=== PATIENT | female | born 1970 | race Hispanic/Latino ===

== ENCOUNTER 2018-01-22 19:15 | Emergency (ER) | payer SELFPAY ==
[2018-01-22 20:36] LABS: Absolute Monocytes 0.6 K/uL (0.1-1.3); Absolute Neutrophil 8.8 K/uL (1.8-8.0); Eosinophils % 1.2 % (0-4.4); Hematocrit 28.5 % (36.0-45.0); Lymphocytes % 16.9 % (15.3-44.8); MCV 86.2 fL (80-100); MPV 8.5 fL (7.6-11.3); RBC Red Blood Cell Count 3.31 M/uL (3.86-4.86)
--- NOTE | 2018-01-22 20:39 | RAD REPORT ---
EXAM DESCRIPTION: CT - Abdomen Pelvis Wo Contrast - 01/22/2018 8:30 pm CLINICAL HISTORY: Abdominal pain. COMPARISON: 10/14/2016 TECHNIQUE: CT imaging of the abdomen and pelvis was performed without contrast. Solid organ, bowel a nd vascular assessment is limited due to lack of IV and oral contrast. All CT scans are performed using dose optimization technique as appropriate and may include automated exposure control or mA/KV adjustment according to patient size. FINDINGS: A small left pleural effusion is present with a small to moderate right pleural effusion. Subsegmental atelectasis is present in the lung bases, greater on the right. The liver, spleen, pancreas, adrenal glands and kidneys are within normal limits for a limited non-co ntrast examination.Cholecystectomy. No bowel obstruction, free air, free fluid or abscess. Mild anasarca is noted. The appendix is normal . Small fat containing umbilical hernia. The osseous structures are within normal limits. IMPRESSION: Bilateral pleural effusions are noted, larger on the right. Mild anasarca is also seen. No acute intra-abdominal or intrapelvic finding is present. A limited non-contrast examination was performed as detailed.
[2018-01-22] MEDS ORDERED: FAMOTIDINE 20 MG/2 ML VIAL IV ONE (20:45)
[2018-01-22] MEDS ORDERED: MAGNE/ALUM HYDROXD 30 ML UCUP ONE (20:45)
[2018-01-22] MEDS ORDERED: LIDOCAINE VISCOUS 2% SOLN 15 ML UDC ONE (20:45)
[2018-01-22] MEDS ORDERED: ONDANSETRON 4 MG/2 ML VIAL ONE (20:45)
[2018-01-22] MEDS ORDERED: MORPHINE 4 MG/ML SYR ONE (20:45)
[2018-01-22] MEDS ORDERED: NA CHLORIDE 0.9% 500 ML ONE (20:46)
[2018-01-22 20:54] LABS: Albumin 3.1 g/dL (3.2-5.5); Bilirubin Direct 0.1 mg/dL (0-0.2); Bilirubin Total 0.5 mg/dL (0.3-1.2); Protein, Total 6.1 g/dL (6.0-8.3)
[2018-01-22] MEDS ORDERED: PROMETHAZINE 25 MG/ML VIAL ONE (22:57)
[2018-01-22] MEDS ORDERED: MORPHINE 10 MG/ML VIAL ONE (23:10)
--- NOTE | 2018-01-22 23:58 | ER ---
Nurse's Notes [facility] Name: Theresa Mancia Age: 47 yrs Sex: Female : 1970 Arrival Date: 01/22/2018 Time: 19:18 Bed 4 Private MD: Diagnosis: Gastroparesis Presentation: 01/22 19:24 Presenting complaint: Patient states: upper abd pain and vomiting x 2 days. Transition aa1 of care: patient was not received from another setting of care. Onset of symptoms was January 21, 2018. Care prior to arrival: None. 19:24 Method Of Arrival: Wheelchair aa1 19:24 Acuity: MISHEL 3 aa1 Triage Assessment: 19:28 General: Appears in no apparent distress. uncomfortable, Behavior is appropriate for aa1 age, restless. 22:45 GI: Reports upper abdominal pain, nausea, vomiting. ao FULL TIME PARAMEDIC: 01/23 00:25 LMP N/A - ao Historical: - Allergies: 01/22 19:28 No Known Allergies; aa1 - Home Meds: 19:28 Creon 24,000-76,000 -120,000 unit Oral cpDR 1 caps 3 times per day [Active]; Reglan 10 aa1 mg Oral tab 1 tab before meals [Active]; Lasix 40 mg Oral tab 3 tabs 2 times per day [Active]; Vitamin D 5,000 unit Oral daily [Active]; omeprazole 20 mg Oral TbEC 20 mg daily [Active]; atenolol 50 mg Oral tab 1 tab 2 times per day [Active]; amlodipine 5 mg tab 1 tab once daily [Active]; gabapentin 100 mg oral cap 1 caps 3 times per day [Active]; simvastatin 80 mg Oral tab nightly [Active]; carvedilol 6.25 mg Oral tab 1 tab 2 times per day [Active]; Toujeo SoloStar 300 unit/mL (1.5 mL) subcutaneous inpn 40 unit daily [Active]; - PMHx: 19:28 Diabetes - IDDM; Gastroparesis; Hypertension; Renal Disease; Dialysis; aa1 - PSHx: 19:28 Left AKA; Cholecystectomy; aa1 - Immunization history:: Flu vaccine is up to date. - Social history:: Smoking status: Patient/guardian denies using tobacco. - Family history:: pertinent for recent upper respiratory infection symptoms. Screenin:44 Abuse screen: Denies threats or abuse. Denies injuries from another. Nutritional ao screening: No deficits noted. Tuberculosis screening: No symptoms or risk factors identified. Fall Risk None identified. Assessment: 20:00 General: Appears in no apparent distress. uncomfortable, Behavior is anxious, crying. ao Pain: Complains of pain in abdomen Pain currently is 8 out of 10 on a pain scale. Neuro: Level of Consciousness is awake, alert, obeys commands, Oriented to person, place, time, situation, Appropriate for age Moves all extremities. Speech is normal, Facial symmetry appears normal, Pupils are PERRLA. Cardiovascular: Heart tones S1 S2 Capillary refill < 3 seconds Patient's skin is warm and dry. Respiratory: Airway is patent Respiratory effort is even, unlabored, Respiratory pattern is regular, symmetrical, Breath sounds are clear bilaterally. GI: Abdomen is obese, Bowel sounds present X 4 quads. : No signs and/or symptoms were reported regarding the genitourinary system. EENT: No signs and/or symptoms were reported regarding the EENT system. Derm: No signs and/or symptoms reported regarding the dermatologic system. Musculoskeletal: No signs and/or symptoms reported regarding the musculoskeletal system. 21:08 Reassessment: Patient appears in no apparent distress at this time. Patient and/or ao family updated on plan of care and expected duration. Pain level reassessed. Patient is alert, oriented x 3, equal unlabored respirations, skin warm/dry/pink. Waiting on labs results. 22:43 Reassessment: Patient appears in no apparent distress at this time. Patient and/or ao family updated on plan of care and expected duration. Pain level reassessed. Patient is alert, oriented x 3, equal unlabored respirations, skin warm/dry/pink. 23:23 Reassessment: Patient appears in no apparent distress at this time. Patient and/or ao family updated on plan of care and expected duration. Pain level reassessed. Patient is alert, oriented x 3, equal unlabored respirations, skin warm/dry/pink. Unable to get urine from patient as patient was put in bedside commode and was unable to void. Patient states that she produces some urine still, but was unable to urinate. Dr Beckford was notified and said that is Okay and we don't need urine. Vital Signs: 19:28 BP 187 / 91; Pulse 84; Resp 22; Temp 98.4; Pulse Ox 95% ; Weight 92.99 kg; Pain 10/10; aa1 21:08 BP 182 / 76; Pulse 84; Resp 14; Pulse Ox 92% on R/A; Pain 4/10; ao 22:43 BP 187 / 100; Pulse 94; Resp 18; Pulse Ox 95% on 2 lpm NC; ao 23:23 BP 184 / 95; Pulse 85; Resp 16; Pulse Ox 96% on 2 lpm NC; ao 04 00:25 BP 187 / 98; Pulse 82; Resp 16; Pulse Ox 98% on 2 lpm NC; ao 00:25 Patient stated that she has not take her BP medication. Patient was advised to take her ao BP when she get home ED Course: 01/22 19:18 Patient arrived in ED. es 19:24 Triage completed. aa1 19:28 Arm band placed on left wrist. aa1 19:31 Gris Beckford MD is Attending Physician. ma2 19:38 Kevin Aguilera RN is Primary Nurse. ao 20:30 Inserted saline lock: 20 gauge in right antecubital area, using aseptic technique. ao ,using aseptic technique. Guided ultrasound Blood collected. 20:31 CT completed. Patient moved to CT via stretcher. Patient moved back from CT. jg1 20:31 CT Abd/Pelvis - Without Cont In Process Unspecified. EDMS 22:44 Patient has correct armband on for positive identification. Pulse ox on. NIBP on. ao 01/23 00:24 No provider procedures requiring assistance completed. IV discontinued, intact, ao bleeding controlled, No redness/swelling at site. Pressure dressing applied. Administered Medications: 01/22 20:30 Drug: Pepcid 20 mg Route: IVP; Site: right antecubital; ao 22:43 Follow up: Response: No adverse reaction ao 20:35 Drug: morphine 4 mg Route: IVP; Site: right antecubital; ao 22:42 Follow up: Response: No adverse reaction; Pain is unchanged, physician notified ao 20:35 Drug: Zofran 4 mg Route: IVP; Site: right antecubital; ao 22:42 Follow up: Response: No adverse reaction ao 20:40 Drug: GI Cocktail with - (Phenobarbital-Belladonna 10 ml, Maalox Suspension 30 ao ml, Lidocaine Liquid 2 % 20 ml) Route: PO; 22:42 Follow up: Response: No adverse reaction ao 20:45 Drug: NS 0.9% 500 ml Route: IV; Rate: 200 ml/hr; Site: right antecubital; ao 22:41 Drug: Phenergan 25 mg Route: IVP; Site: right antecubital; ao 22:43 Follow up: Response: No adverse reaction ao 22:42 Not Given (Unable to get Dilaudid. DR Informed): Dilaudid 1 mg IVP once ao 23:00 Drug: morphine 4 mg Route: IVP; Site: right antecubital; ao 23:51 Follow up: Response: No adverse reaction; Pain is decreased ao Outcome: 23:58 Discharge ordered by MD. granados 04/08 00:24 Discharged to home via wheelchair. ao Condition: stable Discharge instructions given to patient, chair mender, Instructed on discharge instructions, follow up and referral plans. Demonstrated understanding of instructions, follow-up care, medications, Prescriptions given X 3, Given instructions to son and patient. Patient agree with the POC and to follow up with PCP. 00:27 Patient left the ED. ao Signatures: Dispatcher [employer] Cecille Anglin RN RN aa1 Salyer, Edna es Garcia, Jessica jg1 Ortiz, Alex, RN RN ao Alzahri, Mohammad, MD MD ma2
--- NOTE | 2018-01-22 23:59 | EDPHYS ---
Physician Documentation [facility] Name: Theresa Mancia Age: 47 yrs Sex: Female : 1970 Arrival Date: 01/22/2018 Time: 19:18 Bed 4 Private MD: ED Physician Gris Beckford HPI: 01/22 19:50 This 47 yrs old Female presents to ER via Wheelchair with complaints of ma2 Vomiting, Abdominal Pain. 19:50 The patient presents to the emergency department with nausea, vomiting. Onset: The ma2 symptoms/episode began/occurred gradually, 2 day(s) ago. Possible causes: unknown. Associated signs and symptoms: Pertinent positives: abdominal pain. Severity of symptoms: At their worst the symptoms were severe. The patient has experienced similar episodes in the past. hx of ESRD gastroparesis here with epigastric abd pain and vomiting x 2 days constant had endoscopy many yrs in past unremarkabel . 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/A - ao Historical: - Allergies: 01/22 19:28 No Known Allergies; aa1 - Home Meds: 19:28 Creon 24,000-76,000 -120,000 unit Oral cpDR 1 caps 3 times per day [Active]; Reglan 10 aa1 mg Oral tab 1 tab before meals [Active]; Lasix 40 mg Oral tab 3 tabs 2 times per day [Active]; Vitamin D 5,000 unit Oral daily [Active]; omeprazole 20 mg Oral TbEC 20 mg daily [Active]; atenolol 50 mg Oral tab 1 tab 2 times per day [Active]; amlodipine 5 mg tab 1 tab once daily [Active]; gabapentin 100 mg oral cap 1 caps 3 times per day [Active]; simvastatin 80 mg Oral tab nightly [Active]; carvedilol 6.25 mg Oral tab 1 tab 2 times per day [Active]; Toujeo SoloStar 300 unit/mL (1.5 mL) subcutaneous inpn 40 unit daily [Active]; - PMHx: 19:28 Diabetes - IDDM; Gastroparesis; Hypertension; Renal Disease; Dialysis; aa1 - PSHx: 19:28 Left AKA; Cholecystectomy; aa1 - Immunization history:: Flu vaccine is up to date. - Social history:: Smoking status: Patient/guardian denies using tobacco. - Family history:: pertinent for recent upper respiratory infection symptoms. ROS: 19:50 Constitutional: Negative for fever, chills, and weight loss, Eyes: Negative for injury, ma2 pain, redness, and discharge, ENT: Negative for injury, pain, and discharge, Neck: Negative for injury, pain, and swelling, Cardiovascular: Negative for chest pain, palpitations, and edema, Respiratory: Negative for shortness of breath, cough, wheezing, and pleuritic chest pain, Back: Negative for injury and pain, : Negative for injury, bleeding, discharge, and swelling, MS/Extremity: Negative for injury and deformity, Skin: Negative for injury, rash, and discoloration, Neuro: Negative for headache, weakness, numbness, tingling, and seizure, Psych: Negative for depression, anxiety, suicide ideation, homicidal ideation, and hallucinations, Allergy/Immunology: Negative for hives, rash, and allergies, Endocrine: Negative for neck swelling, polydipsia, polyuria, polyphagia, and marked weight changes. 19:50 Abdomen/GI: Positive for abdominal pain, nausea, vomiting, Negative for diarrhea, constipation, anorexia, acute changes. Exam: 19:50 Constitutional: This is a well developed, well nourished patient who is awake, alert, ma2 and in no acute distress. Head/Face: Normocephalic, atraumatic. Chest/axilla: Normal chest wall appearance and motion. Nontender with no deformity. No lesions are appreciated. Cardiovascular: Regular rate and rhythm with a normal S1 and S2. No gallops, murmurs, or rubs. Normal PMI, no JVD. No pulse deficits. Respiratory: Lungs have equal breath sounds bilaterally, clear to auscultation and percussion. No rales, rhonchi or wheezes noted. No increased work of breathing, no retractions or nasal flaring. 19:50 Abdomen/GI: Inspection: abdomen appears normal, Bowel sounds: normal, Palpation: severe abdominal tenderness, in the epigastric area, umbilical area and right upper quadrant. Vital Signs: 19:28 BP 187 / 91; Pulse 84; Resp 22; Temp 98.4; Pulse Ox 95% ; Weight 92.99 kg; Pain 10/10; aa1 21:08 BP 182 / 76; Pulse 84; Resp 14; Pulse Ox 92% on R/A; Pain 4/10; ao 22:43 BP 187 / 100; Pulse 94; Resp 18; Pulse Ox 95% on 2 lpm NC; ao 23:23 BP 184 / 95; Pulse 85; Resp 16; Pulse Ox 96% on 2 lpm NC; ao 04 00:25 BP 187 / 98; Pulse 82; Resp 16; Pulse Ox 98% on 2 lpm NC; ao 00:25 Patient stated that she has not take her BP medication. Patient was advised to take her ao BP when she get home MDM: 01/22 19:38 Patient medically screened. ma2 19:53 Differential diagnosis: gastritis, pancreatitis, appendicitis, diverticulitis, viral ma2 gastroenteritis, s/p lap sorin. 23:57 Data reviewed: vital signs, nurses notes, radiologic studies, CT scan. Counseling: I ma2 had a detailed discussion with the patient and/or guardian regarding: the historical points, exam findings, and any diagnostic results supporting the discharge/admit diagnosis, the presence of at least one elevated blood pressure reading (>120/80) during this emergency department visit, the need for outpatient follow up. Medical screen evaluation completed. [facility] emergency medical condition absent. Response to treatment: the patient's symptoms have resolved after treatment, the patient's condition has returned to base line, the patient is now symptom free. 01/22 19:46 Order name: Amylase, Serum; Complete Time: 22:18 ma2 01/22 19:46 Order name: Basic Metabolic Panel; Complete Time: 22:18 ma2 01/22 19:46 Order name: CBC with Diff; Complete Time: 22:18 ma2 01/22 19:46 Order name: Creatinine for Radiology; Complete Time: 22:18 ma2 01/22 19:46 Order name: Hepatic Function; Complete Time: 22:18 ma2 01/22 19:46 Order name: Lipase; Complete Time: 22:18 ny2 01/22 19:50 Order name: CT Abd/Pelvis - Without Cont; Complete Time: 22:18 ma2 01/22 19:46 Order name: IV Saline Lock; Complete Time: 20:32 ma2 01/22 19:46 Order name: Labs collected and sent; Complete Time: 20:32 ma2 Administered Medications: 20:30 Drug: Pepcid 20 mg Route: IVP; Site: right antecubital; ao 22:43 Follow up: Response: No adverse reaction ao 20:35 Drug: morphine 4 mg Route: IVP; Site: right antecubital; ao 22:42 Follow up: Response: No adverse reaction; Pain is unchanged, physician notified ao 20:35 Drug: Zofran 4 mg Route: IVP; Site: right antecubital; ao 22:42 Follow up: Response: No adverse reaction ao 20:40 Drug: GI Cocktail with - (Phenobarbital-Belladonna 10 ml, Maalox Suspension 30 ao ml, Lidocaine Liquid 2 % 20 ml) Route: PO; 22:42 Follow up: Response: No adverse reaction ao 20:45 Drug: NS 0.9% 500 ml Route: IV; Rate: 200 ml/hr; Site: right antecubital; ao 22:41 Drug: Phenergan 25 mg Route: IVP; Site: right antecubital; ao 22:43 Follow up: Response: No adverse reaction ao 22:42 Not Given (Unable to get Dilaudid. DR Informed): Dilaudid 1 mg IVP once ao 23:00 Drug: morphine 4 mg Route: IVP; Site: right antecubital; ao 23:51 Follow up: Response: No adverse reaction; Pain is decreased ao Disposition: 01/22/18 23:58 Discharged to Home. Impression: Gastroparesis. - Condition is Stable. - Prescriptions for Pepcid 20 mg Oral Tablet - take 1 tablet by ORAL route every 12 hours for 10 days; 20 tablet. Reglan 10 mg Oral Tablet - take 1 tablet by ORAL route every 6 hours . take 30 minutes before meals and at bedtime; 100 tablet. Zofran 8 mg Oral Tablet - take 1 tablet by ORAL route every 12 hours As needed; 20 tablet. - Medication Reconciliation Form, Thank You Letter, Antibiotic Education, Prescription Opioid Use form. - Follow up: Private Physician; When: Tomorrow; Reason: Continuance of care. - Problem is chronic. - Symptoms have improved. Signatures: Dispatcher [employer] EDCecille Chand RN RN aa1 Kevin Aguilera RN RN ao Gris Beckford MD MD ma2 Corrections: (The following items were deleted from the chart) 23:54 19:46 Urine Dipstick-Ancillary ordered. ma2 ao
[2018-01-23 00:40] VITALS: TEMP 98.4
[2018-01-23 00:45] VITALS: BP 187/98; O2SAT 98
== END 2018-01-23 00:27 | disposition home or self-care (01) ==
LOC: ER 19:15
DX: K31.84 Gastroparesis (principal); I10 Essential (primary) hypertension; E11.9 Type 2 diabetes mellitus without complications; N18.6 End stage renal disease; Z99.2 Dependence on renal dialysis; Z79.4 Long term (current) use of insulin
CPT/HCPCS: 36415; 74176; 80048; 80076; 82150; 83690; 85025; 96374; 96375; 99284; J2405; J2550

== ENCOUNTER 2018-02-10 14:43 | Observation (INO) | payer SELFPAY ==
--- NOTE | 2018-02-10 15:37 | EKG ---
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
[2018-02-10 16:17] LABS: Absolute Lymphocytes (CBC) 1.3 K/uL (0.7-4.9); Absolute Monocytes 0.4 K/uL (0.1-1.3); Absolute Neutrophil 4.1 K/uL (1.8-8.0); Basophils % 1.5 % (0-1.3); Eosinophils % 5.9 % (0-4.4); Hematocrit 24.6 % (36.0-45.0); Lymphocytes % 20.7 % (15.3-44.8); MCH 26.7 pg (27.0-35.0); MCV 84.5 fL (80-100); MPV 7.8 fL (7.6-11.3); Monocytes % 6.3 % (3.3-12.3); RBC Red Blood Cell Count 2.91 M/uL (3.86-4.86)
--- NOTE | 2018-02-10 16:21 | RAD REPORT ---
EXAM DESCRIPTION: RAD - Chest Single View - 02/10/2018 4:16 pm CLINICAL HISTORY: Shortness of breath COMPARISON: 12/22/2017 FINDINGS: Portable technique limits examination quality. Bilateral pulmonary opacities are noted likely representing pulmonary edema. Bilateral pleural effusi ons, greater on the right also seen. The heart is moderately to significantly enlarged. No displaced fractures. IMPRESSION: Mild to moderate CHF/ volume overload pattern.
[2018-02-10 16:22] LABS: Protime INR 0.92
[2018-02-10 16:23] LABS: Glucose Level 120 mg/dL (65-120)
[2018-02-10 16:29] LABS: ALT/SGPT 10 IU/L (10-60); AST/SGOT 9 IU/L (10-42); Albumin 2.9 g/dL (3.2-5.5); Alkaline Phosphatase 67 IU/L (42-121); Bilirubin Direct < 0.1 mg/dL (0-0.2); Bilirubin Total 0.5 mg/dL (0.3-1.2); Creatine Phosphokinase 245 IU/L (22-269); Magnesium 2.9 mg/dL (1.8-2.5); Protein, Total 5.9 g/dL (6.0-8.3)
[2018-02-10 16:32] LABS: CKMB Creatine Kinase MB 8.8 ng/ml (0.3-4.0)
[2018-02-10 16:33] LABS: Bicarbonate 16 mEq/L (21-31); Sodium Level 134 mEq/L (135-145)
[2018-02-10 16:47] LABS: Potassium 6.3 mEq/L (3.6-5.0)
[2018-02-10 17:09] LABS: BUN Blood Urea Nitrogen 100 mg/dL (6-20)
[2018-02-10] MEDS ORDERED: FUROSEMIDE 20 MG/ 2ML VIAL ONE (17:23)
[2018-02-10] MEDS ORDERED: INSULIN -REGULAR HUMAN 50 UNIT/0.5 ML ML ONE (17:24)
[2018-02-10] MEDS ORDERED: ALBUTEROL 2.5 MG/3 ML NEB SOL ONE (17:24)
[2018-02-10] MEDS ORDERED: SOD POLYSTYREN SUL 15 GM/60 ML UCUP ONE (17:25)
[2018-02-10] MEDS ORDERED: SODIUM BICARB 50 MEQ/50ML VIAL ONE (17:25)
[2018-02-10] MEDS ORDERED: D50W 25 GM/50 ML SYRINGE IV ONE (17:25)
[2018-02-10] MEDS ORDERED: FUROSEMIDE 100 MG/10 ML VIAL IV ONE (17:25)
[2018-02-10] MEDS ORDERED: ONDANSETRON 4 MG/2 ML VIAL ONE (17:26)
[2018-02-10] MEDS ORDERED: MORPHINE 4 MG/ML SYR ONE (17:26)
--- NOTE | 2018-02-10 17:56 | ER ---
Nurse's Notes [facility] Name: Theresa Mancia Age: 47 yrs Sex: Female : 1970 Arrival Date: 02/10/2018 Time: 14:43 Bed 5 Private MD: Diagnosis: End stage renal disease;Hyperkalemia Presentation: 02/10 14:57 Presenting complaint: Patient states: Swelling and SOB that started 2 weeks ago. aj Patient has not had dialysis in 1 month. Family stated, "she used to go to [facility] for dialysis but because she doesn't have insurance they told her to come to her nearest hospital, which is this one.". Transition of care: patient was not received from another setting of care. Onset of symptoms was January 27, 2018. Initial Sepsis Screen: Does the patient meet any 2 criteria? No. Patient's initial sepsis screen is negative. Does the patient have a suspected source of infection? No. Patient's initial sepsis screen is negative. Care prior to arrival: None. 14:57 Method Of Arrival: Wheelchair 14:57 Acuity: MISHEL 2 aj Triage Assessment: 15:00 General: Appears in no apparent distress. uncomfortable, Behavior is calm, cooperative. aj Pain: Complains of pain in face and scalp. Neuro: Level of Consciousness is awake, alert, obeys commands, Oriented to person, place, time, situation. Cardiovascular: Edema is 4+ to right hand, right fingers, left ankle, left foot, left toes, left hand, left fingers, right ankle, right foot and right toes. Respiratory: Reports shortness of breath Airway is patent Respiratory effort is even, unlabored, Respiratory pattern is symmetrical, tachypnea Onset: The symptoms/episode began/occurred gradually, the patient has mild shortness of breath. Derm: Skin is intact, is healthy with good turgor, Skin is pink, warm \\T\\ dry. normal. 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 unknown ak1 Historical: - Allergies: 15:00 No Known Allergies; aj - Home Meds: 15:00 amlodipine 5 mg tab 1 tab once daily [Active]; atenolol 50 mg Oral tab 1 tab 2 times aj per day [Active]; carvedilol 6.25 mg Oral tab 1 tab 2 times per day [Active]; Creon 24,000-76,000 -120,000 unit Oral cpDR 1 caps 3 times per day [Active]; gabapentin 100 mg Oral cap 1 caps 3 times per day [Active]; Lasix 40 mg Oral tab 3 tabs 2 times per day [Active]; omeprazole 20 mg Oral TbEC 20 mg daily [Active]; Reglan 10 mg Oral tab 1 tab before meals [Active]; simvastatin 80 mg Oral tab nightly [Active]; Toujeo SoloStar 300 unit/mL (1.5 mL) subcutaneous inpn 40 unit daily [Active]; Vitamin D 5,000 unit Oral daily [Active]; - PMHx: 15:00 Diabetes - IDDM; Dialysis; Gastroparesis; Hypertension; Renal Disease; aj - PSHx: 15:00 Left AKA; Cholecystectomy; aj - Immunization history:: Adult Immunizations unknown. - Social history:: Smoking status: Patient/guardian denies using tobacco. Screenin:40 Abuse screen: Denies threats or abuse. Denies injuries from another. Nutritional sv screening: No deficits noted. Tuberculosis screening: No symptoms or risk factors identified. Fall Risk None identified. Assessment: 15:25 General: Appears uncomfortable, obese, Behavior is cooperative, appropriate for age, sv anxious. Pain: Complains of pain in left arm Pain does not radiate. Pain currently is 10 out of 10 on a pain scale. Quality of pain is described as tender, Is continuous, Noted to be resistant to movement. Neuro: Level of Consciousness is awake, alert, obeys commands, Oriented to person, place, time, situation, Moves all extremities. Full function Speech is normal. Cardiovascular: Heart tones S1 S2 present Patient's skin is warm and dry. Pulses are 2+ in right radial artery and left radial artery Rhythm is sinus rhythm Dialysis shunt: in the anterior aspect of right upper chest, Dressing contaminated and partially attached. Family stated it hasn't been cleaned in about a month.. Respiratory: Reports shortness of breath at rest on exertion Respiratory effort is even, unlabored, Respiratory pattern is regular, symmetrical, Breath sounds with wheezes bilaterally. GI: Abdomen is round. Derm: Skin is intact, Skin is normal. Musculoskeletal: Amputation of left BKA Swelling present in abdomen, pelvis, right arm, left arm, right leg and left leg. 15:40 Reassessment: Right anterior chest Ramon dressing removed and changed using sterile sv procedure. 15:55 Reassessment: Spoke with Nathalie family independence case manager regarding pt's dialysis situation. sv 17:43 Reassessment: No changes from previously documented assessment. Patient and/or family sv updated on plan of care and expected duration. Pain level reassessed. Patient is alert, oriented x 3, equal unlabored respirations, skin warm/dry/pink. 19:00 Reassessment: RECD REPORT FROM LUIS M BRIONES. 47YO HF P/W SOB AND EDEMA, H/O ESRD. PT IS bp NOT ON SCHEDULED DIALYSIS. ALL CURRENT ORDERS COMPLETED, LABS GROSSLY ABNORMAL IN K, BUN, CRE, TO BE DIALYZED AFTER ADMIT. 19:32 Cardiovascular: Rhythm is sinus rhythm. Respiratory: Airway is patent. ak1 Vital Signs: 15:00 BP 180 / 75; Pulse 89; Resp 24; Temp 98.4; Pulse Ox 95% on R/A; Weight 103.87 kg; aj Height 5 ft. 0 in. (152.40 cm); 15:40 Pulse Ox 91% on R/A; sv 16:22 BP 185 / 79; Pulse 84; Resp 16; Pulse Ox 99% on 2 lpm NC; sv 17:45 BP 174 / 87; Pulse 81; Resp 16; Pulse Ox 100% on 2 lpm NC; sv 18:30 BP 142 / 87; Pulse 68; Resp 18; Pulse Ox 95% on 2 lpm NC; sv 19:30 BP 142 / 78; Pulse 69; Resp 18; Temp 98.3; Pulse Ox 94% on R/A; Pain 0/10; ak1 15:00 Body Mass Index 44.72 (103.87 kg, 152.40 cm) aj 15:40 Pt placed on O2 \\T\\ 2L per NC. O2 sat up to 99%. sv ED Course: 14:43 Patient arrived in ED. as 14:59 Triage completed. aj 15:00 Arm band placed on left wrist. Patient placed in an exam room. aj 15:05 Ángel Singh PA is PHCP. cp 15:05 Leo Thomason MD is Attending Physician. cp 15:14 Tiesha Vivar, ANSELMO is Primary Nurse. sv 15:31 EKG done, by certified bench jeweler technician. reviewed by Ángel SANTOS. vh 15:38 Radiology exam delayed due to Nurse in room with Pt. advised to come back in 1/2 hr. to kw1 do chest XRay. 15:40 Patient has correct armband on for positive identification. Placed in gown. Bed in low sv position. Call light in reach. Side rails up X2. Adult w/ patient. cardiac monitor on. Pulse ox on. NIBP on. Door closed. Head of bed elevated. 15:50 Initial lab(s) drawn, by me, sent to lab. Inserted saline lock: 22 gauge in right sv forearm, using aseptic technique. ,using aseptic technique. diffusics Blood collected. Flushed right forearm with 5 ml normal saline. 16:16 XRAY Chest (1 view) In Process Unspecified. EDMS 16:22 Notified Nurse Practitioner and/or Physician Debt Collector of a critical lab result(s), Hgb ss 7.8. 16:49 Basic Metabolic Panel Sent. sv 16:49 BNP Sent. sv 16:49 CBC with Diff Sent. sv 16:49 Ckmb Sent. sv 16:50 CPK Sent. sv 17:54 Lana Varela MD is Hospitalizing Provider. cp 19:10 Report given to Zackery BRIONES and Dara BRIONES. sv 19:32 No provider procedures requiring assistance completed. Patient admitted, IV remains in ak1 place. 19:39 Primary Nurse role handed off by Tiesha Vivar RN sv 19:51 Zackery Boone, ANSELMO is Primary Nurse. bp Administered Medications: 17:12 Not Given (Physician Discretion): Lasix 60 mg IVP once cp 17:43 Drug: Zofran 4 mg Route: IVP; Site: right forearm; sv 19:33 Follow up: Response: No adverse reaction sv 17:45 Drug: morphine 4 mg Route: IVP; Site: right forearm; sv 19:34 Follow up: Response: No adverse reaction sv 17:47 Drug: D50W 50 ml Route: IVP; Site: right forearm; sv 19:35 Follow up: Response: No adverse reaction ak1 19:35 Follow up: Response: No adverse reaction sv 17:49 Drug: Sodium Bicarbonate 1 amp Route: IVP; Site: right forearm; sv 19:34 Follow up: Response: No adverse reaction sv 17:50 Drug: Lasix 120 mg Route: IVP; Site: right forearm; sv 19:34 Follow up: Response: No adverse reaction sv 17:51 Drug: Albuterol 2.5 mg Route: Inhalation; sv 17:51 Drug: Albuterol 2.5 mg Route: Inhalation; sv 17:51 Drug: Albuterol 2.5 mg Route: Inhalation; sv 17:52 Drug: Insulin Regular Human 5 units {Co-Signature: mike (Luis M Morgan RN).} Route: IVP; sv Site: right forearm; 19:34 Follow up: Response: No adverse reaction ak1 18:01 Drug: Kayexalate 30 grams Route: PO; sv 18:01 Follow up: Drink left at bedside and explained importance of medication and reason for sv medication. Placed at bedside and instructed pt to start drinking medication. 19:34 Follow up: Response: No adverse reaction ak1 18:33 Drug: Calcium Gluconate 1 grams Route: IVPB; Infused Over: 60 mins; Site: right forearm;sg 19:34 Follow up: IV Status: Completed infusion ak1 Intake: Outcome: 17:55 Decision to Hospitalize by Provider. cp 19:32 Admitted to Tele accompanied by tech, via stretcher, with chart. ak1 19:32 Condition: stable 19:32 Instructed on the need for admit. 20:21 Admitted to Tele Report called to FLORENTINO BRIONES ak1 20:42 Patient left the ED. ak1 Signatures: Dispatcher [employer] Tiesha Oleary RN RN sv Gay, Steven, RN RN sg Myers, Amanda, RN RN aj Martinez, Amelia as Smirch, Shelby, RN RN Helene Persaud Amber, RN RN ak1 Ángel Singh PA PA cp Zackery Boone, RN ANSELMO Lillie Corona 1 Luis M mckeon
[2018-02-10] MEDS ORDERED: CALCIUM GLUC 10% INJ 4.65 MEQ in NA CHLORIDE 0.9% 100 ML IV ONE (19:00)
--- NOTE | 2018-02-10 20:43 | EDPHYS ---
Physician Documentation [facility] Name: Theresa Mancia Age: 47 yrs Sex: Female : 1970 Arrival Date: 02/10/2018 Time: 14:43 Bed 5 Private MD: ED Physician Leo Thomason HPI: 02/10 16:00 This 47 yrs old Female presents to ER via Wheelchair with complaints of cp Shortness Of Breath, Headache, Swelling. 16:00 The patient has shortness of breath at rest. cp 16:00 Onset: The symptoms/episode began/occurred 2 week(s) ago. cp 16:00 Duration: The symptoms are continuous, and are steadily getting worse. Associated signs cp and symptoms: Pertinent positives: swelling lower extremities. Severity of symptoms: in the emergency department the symptoms are unchanged despite home interventions. Patient reports history of ESRD and not being dialyzed for approximately 1 month. 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 ak1 Historical: - Allergies: 15:00 No Known Allergies; aj - Home Meds: 15:00 amlodipine 5 mg tab 1 tab once daily [Active]; atenolol 50 mg Oral tab 1 tab 2 times aj per day [Active]; carvedilol 6.25 mg Oral tab 1 tab 2 times per day [Active]; Creon 24,000-76,000 -120,000 unit Oral cpDR 1 caps 3 times per day [Active]; gabapentin 100 mg Oral cap 1 caps 3 times per day [Active]; Lasix 40 mg Oral tab 3 tabs 2 times per day [Active]; omeprazole 20 mg Oral TbEC 20 mg daily [Active]; Reglan 10 mg Oral tab 1 tab before meals [Active]; simvastatin 80 mg Oral tab nightly [Active]; Toujeo SoloStar 300 unit/mL (1.5 mL) subcutaneous inpn 40 unit daily [Active]; Vitamin D 5,000 unit Oral daily [Active]; - PMHx: 15:00 Diabetes - IDDM; Dialysis; Gastroparesis; Hypertension; Renal Disease; aj - PSHx: 15:00 Left AKA; Cholecystectomy; aj - Immunization history:: Adult Immunizations unknown. - Social history:: Smoking status: Patient/guardian denies using tobacco. ROS: 16:05 Constitutional: Negative for body aches, chills, fever, poor PO intake. cp 16:05 Eyes: Negative for injury, pain, redness, and discharge. cp 16:05 ENT: Negative for drainage from ear(s), ear pain, sore throat, difficulty swallowing, difficulty handling secretions. 16:05 Neck: Negative for pain with movement, pain at rest, stiffness, tenderness. 16:05 Cardiovascular: Positive for edema, Negative for chest pain, palpitations. 16:05 Respiratory: Positive for shortness of breath, Negative for cough, wheezing. 16:05 Abdomen/GI: Negative for abdominal pain, nausea, vomiting, and diarrhea, constipation, black/tarry stool, rectal bleeding. 16:05 Back: Negative for pain at rest, pain with movement, radiated pain. 16:05 : Negative for urinary symptoms. 16:05 Skin: Negative for cellulitis, rash. 16:05 Neuro: Positive for headache, Negative for altered mental status, dizziness, numbness, weakness. 16:05 All other systems are negative. Exam: 15:30 ECG was reviewed by the Attending Physician. cp 16:10 Head/Face: Normocephalic, atraumatic. cp 16:10 Constitutional: The patient appears in no acute distress, alert, awake, non-diaphoretic, non-toxic, well developed, well nourished, obese. 16:10 Eyes: Periorbital structures: appear normal, Pupils: equal, round, and reactive to cp light and accomodation, Extraocular movements: intact throughout, Conjunctiva: normal, no exudate, no injection, Sclera: no appreciated abnormality, Lids and lashes: appear normal, bilaterally. 16:10 ENT: External ear(s): are unremarkable, Ear canal(s): are normal, clear, TM's: bulging, cp is not appreciated, bilaterally, dullness, bilaterally, erythema, is not appreciated, bilaterally, Nose: is normal, Mouth: Lips: moist, Oral mucosa: pink and intact, moist, Posterior pharynx: is normal, airway is patent, no erythema, no exudate. 16:10 Neck: ROM/movement: is normal, is supple, without pain, no range of motions limitations, no meningismus, no nuchal rigidity. 16:10 Chest/axilla: Inspection: normal, Palpation: crepitus, is not appreciated, tenderness, that is mild. 16:10 Cardiovascular: Rate: normal, Rhythm: regular, Edema: JVD: is not appreciated. 16:10 Respiratory: the patient does not display signs of respiratory distress, Respirations: labored breathing, that is mild, intercostal retractions, are absent, shallow respirations, are not present, Breath sounds: decreased breath sounds, that are moderate, are located in both bases, stridor, is not appreciated, wheezing: is not appreciated. 16:10 Abdomen/GI: Inspection: obese Bowel sounds: active, all quadrants, Palpation: abdomen is soft and non-tender, in all quadrants, rebound tenderness, is not appreciated, voluntary guarding, is not appreciated, involuntary guarding, is not appreciated. 16:10 Back: pain, is absent, ROM is normal. 16:10 Musculoskeletal/extremity: left BKA. 16:10 Skin: cellulitis, is not appreciated, no rash present. 16:10 Neuro: Orientation: to person, place \T\ time. Mentation: lucid, able to follow commands. Vital Signs: 15:00 BP 180 / 75; Pulse 89; Resp 24; Temp 98.4; Pulse Ox 95% on R/A; Weight 103.87 kg; aj Height 5 ft. 0 in. (152.40 cm); 15:40 Pulse Ox 91% on R/A; sv 16:22 BP 185 / 79; Pulse 84; Resp 16; Pulse Ox 99% on 2 lpm NC; sv 17:45 BP 174 / 87; Pulse 81; Resp 16; Pulse Ox 100% on 2 lpm NC; sv 18:30 BP 142 / 87; Pulse 68; Resp 18; Pulse Ox 95% on 2 lpm NC; sv 19:30 BP 142 / 78; Pulse 69; Resp 18; Temp 98.3; Pulse Ox 94% on R/A; Pain 0/10; ak1 15:00 Body Mass Index 44.72 (103.87 kg, 152.40 cm) aj 15:40 Pt placed on O2 \T\ 2L per NC. O2 sat up to 99%. sv MDM: 15:05 Patient medically screened. cp 17:10 Data reviewed: vital signs, nurses notes, lab test result(s), EKG, radiologic studies, cp plain films. 17:10 Test interpretation: by ED physician or midlevel provider: ECG, plain radiologic cp studies. 17:13 Physician consultation: Edi Aguirre MD was called at 17:13, was contacted at 17:13, cp regarding consult, patient's condition. 17:50 Physician consultation: Lana Varela MD was called at 17:50, was contacted at 17:50, cp regarding admission, to the telemetry unit. 02/10 15:23 Order name: Basic Metabolic Panel cp 02/10 15:23 Order name: BNP cp 02/10 15:23 Order name: CBC with Diff cp 02/10 15:23 Order name: Ckmb cp 02/10 15:23 Order name: CPK cp 02/10 15:23 Order name: LFT's; Complete Time: 17:33 cp 02/10 16:57 Interpretation: Normal except: SGOT 9; TP 5.9; ALB 2.9; A/G 1.0. cp 02/10 15:23 Order name: Magnesium; Complete Time: 17:33 cp 02/10 17:04 Interpretation: Abnormal: MG 2.9. cp 02/10 15:23 Order name: PT-INR; Complete Time: 16:30 cp 02/10 15:23 Order name: Ptt, Activated; Complete Time: 16:30 cp 02/10 15:23 Order name: Troponin (emerg Dept Use Only); Complete Time: 16:30 cp 02/10 15:24 Order name: Basic Metabolic Panel; Complete Time: 17:33 EDMS 02/10 16:57 Interpretation: Normal except: CA 7.9; NA 134; CO2 16; CRE 13.26; GFR 3; K 6.3. cp 02/10 15:24 Order name: BNP B-Type Natriuretic Peptide; Complete Time: 17:09 EDMS 02/10 15:24 Order name: CBC with Automated Diff; Complete Time: 16:30 EDMS 02/10 16:58 Interpretation: Normal except: RBC 2.91; HGB 7.8; HCT 24.6; MCH 26.7; MCHC 31.6; RDW cp 16.9; EOSINOPHIL % 5.9; BASO% 1.5. 02/10 15:24 Order name: CKMB Creatine Kinase MB; Complete Time: 17:33 EDMS 02/10 17:05 Interpretation: Abnormal: CKMB 8.8. cp 02/10 15:09 Order name: EKG; Complete Time: 15:09 ss 02/10 15:23 Order name: XRAY Chest (1 view); Complete Time: 16:30 cp 02/10 15:24 Order name: Creatine Phosphokinase; Complete Time: 17:33 EDMS 02/10 18:19 Order name: Glucose, Ancillary Testing EDFL 02/10 18:46 Order name: CONS Physician Consult EDFL 02/10 15:09 Order name: EKG - Nurse/Tech; Complete Time: 15:52 ss 02/10 15:23 Order name: Accucheck Blood Glucose; Complete Time: 16:50 cp 02/10 15:23 Order name: Cardiac monitoring; Complete Time: 15:51 cp 02/10 15:23 Order name: IV Saline Lock; Complete Time: 15:51 cp 02/10 15:23 Order name: Labs collected and sent; Complete Time: 15:51 cp 02/10 15:23 Order name: O2 Per Protocol; Complete Time: 15:51 cp 02/10 15:23 Order name: O2 Sat Monitoring; Complete Time: 15:52 cp EC:30 Rate is 87 beats/min. Rhythm is regular. MN interval is shortened at 110 msec. QRS cp interval is normal. QT interval is normal. No ST changes noted. Interpreted by me. Reviewed by me. Administered Medications: 17:12 Not Given (Physician Discretion): Lasix 60 mg IVP once cp 17:43 Drug: Zofran 4 mg Route: IVP; Site: right forearm; sv 19:33 Follow up: Response: No adverse reaction sv 17:45 Drug: morphine 4 mg Route: IVP; Site: right forearm; sv 19:34 Follow up: Response: No adverse reaction sv 17:47 Drug: D50W 50 ml Route: IVP; Site: right forearm; sv 19:35 Follow up: Response: No adverse reaction ak1 19:35 Follow up: Response: No adverse reaction sv 17:49 Drug: Sodium Bicarbonate 1 amp Route: IVP; Site: right forearm; sv 19:34 Follow up: Response: No adverse reaction sv 17:50 Drug: Lasix 120 mg Route: IVP; Site: right forearm; sv 19:34 Follow up: Response: No adverse reaction sv 17:51 Drug: Albuterol 2.5 mg Route: Inhalation; sv 17:51 Drug: Albuterol 2.5 mg Route: Inhalation; sv 17:51 Drug: Albuterol 2.5 mg Route: Inhalation; sv 17:52 Drug: Insulin Regular Human 5 units {Co-Signature: mike (Luis M Morgan RN).} Route: IVP; sv Site: right forearm; 19:34 Follow up: Response: No adverse reaction ak1 18:01 Drug: Kayexalate 30 grams Route: PO; sv 18:01 Follow up: Drink left at bedside and explained importance of medication and reason for sv medication. Placed at bedside and instructed pt to start drinking medication. 19:34 Follow up: Response: No adverse reaction ak1 18:33 Drug: Calcium Gluconate 1 grams Route: IVPB; Infused Over: 60 mins; Site: right forearm;sg 19:34 Follow up: IV Status: Completed infusion ak1 Disposition: 02/10/18 17:55 Hospitalization ordered by Lana Varela for Observation. Preliminary diagnosis are End stage renal disease, Hyperkalemia. - Bed requested for Telemetry/MedSurg (observation). - Status is Observation. ak1 - Condition is Stable. - Problem is chronic. - Symptoms have improved. UTI on Admission? No Addendum: 02/13/2018 19:00 Co-signature as Attending Physician, Leo Thomason MD. g s Signatures: Dispatcher [employer] Tiesha Oleary RN RN sv Gay, Steven, RN RN sg Myers, Amanda, RN RN aj Smirch, Shelby, RN RN ss Gallardo, Ana ag Krenek, Amber RN ANSELMO ak1 Ángel Singh PA PA cp Starr, Gregory, MD MD Luis M mckeon Corrections: (The following items were deleted from the chart) 02/10 16:15 16:00 Onset: The symptoms/episode began/occurred gradually, cp cp 19:18 15:08 Constitutional: The patient appears in no acute distress, alert, awake, cp non-diaphoretic, non-toxic, well developed, well nourished, obese, cp 19:18 15:08 Head/Face: Normocephalic, atraumatic. cp cp
[2018-02-10] MEDS ORDERED: ONDANSETRON 4 MG/2 ML VIAL IV PRN (21:26)
[2018-02-10] MEDS: IPRATROPIUM BROM 0.5MG/2.5ML NEB SCH ×2 (21:26→23:20)
[2018-02-10] MEDS: ALBUTEROL 2.5 MG/3 ML NEB SOL NEB SCH ×2 (21:26→23:20)
[2018-02-10 22:13] VITALS: BMI 44.7
[2018-02-10 22:40] LABS: Potassium 6.1 mEq/L (3.6-5.0)
[2018-02-10] MEDS ORDERED: MANNITOL 25% 12.5 GM/50 ML VIAL IV PRN (22:49)
[2018-02-10] MEDS ORDERED: NA CHLORIDE 0.9% 1,000 ML IV PRN (22:49)
[2018-02-10] MEDS ORDERED: SOD POLYSTYREN SUL 15 GM/60 ML UCUP PO ONE (22:55)
[2018-02-10] MEDS ORDERED: FUROSEMIDE 40 MG/4 ML VIAL IV ONE (22:55)
[2018-02-10] MEDS ORDERED: ALBUMIN HUMAN 25% 50 ML IV SCH (23:00)
[2018-02-10] MEDS ORDERED: EPOETIN ALFA 10,000 UNIT/ML VIAL IV SCH (23:00)
[2018-02-10] MEDS ORDERED: ALBUMIN HUMAN 25% 100 ML IV ONE (23:53)
[2018-02-11] MEDS: IPRATROPIUM BROM 0.5MG/2.5ML NEB SCH ×5 (03:24→19:38)
[2018-02-11] MEDS: ALBUTEROL 2.5 MG/3 ML NEB SOL NEB SCH ×5 (03:24→19:38)
--- NOTE | 2018-02-11 05:06 | P.HP ---
Certification for Inpatient Patient admitted to: Inpatient With expected LOS: >2 Midnights Patient will require the following post-hospital care: None Practitioner: I am a practitioner with admitting privileges, knowledge of patient current condition, hospital course, and medical plan of care. Services: Services provided to patient in accordance with Admission requirements found in Title 42 Section 412.3 of the Code of Federal Regulations Patient History Date of Service: 02/10/18 Reason for admission: Anasarca History of Present Illness: Patient is a 47-year-old female who has a history of end-stage renal disease. Unfortunately she is an illegal immigrant and she does not qualify for hemodialysis. She has not had dialysis for over 2 months. Patient came in with hyperkalemia and severe volume overload. Patient is not able to give me much history. Her left upper extremity is swollen as well as her bilateral lower extremities. She has a left below-knee amputation. She has a wound on her right foot. Her prognosis is very poor unless we can find away to get her hemodialysis. Allergies No Known Allergies Allergy (Verified 12/20/17 01:04) Home Medications: Amlodipine [Norvasc] 5 mg PO DAILY 02/10/18 Atenolol 50 mg PO BID 02/10/18 Carvedilol 6.25 mg PO BID 02/10/18 Cholecalciferol (Vitamin D3) [Vitamin D 5,000 IU Cap*] 1 tab PO DAILY 02/10/18 Furosemide [Lasix] 3 tab PO BID 02/10/18 Gabapentin [Neurontin] 100 mg PO TID 02/10/18 Insulin Glargine,Hum.rec.anlog [Efra Martinez] 40 unit SQ DAILY 02/10/18 Lipase/Protease/Amylase [Kayleneon Dr 12,000 Units Capsule] 24,000 unit PO TID 02/10 Metoclopramide HCl [Reglan] 10 mg PO AC 02/10/18 Omeprazole 20 mg PO DAILY 02/10/18 Simvastatin 80 mg PO BEDTIME 02/10/18 - Past Medical/Surgical History Has patient received pneumonia vaccine in the past: No Diabetic: Yes -: IDDM -: HTN -: high cholesterol -: HTN -: Tachycardia -: GI bleed -: Pancreatitis -: chronic kidney disease -: recurrent gastroparesis -: cellulitis left foot -: Choleycystectomy -: amp left pinky toe by Dr. Barney jul 2015 -: PICC line -: L ANTONIOA Oct 2015 - Family History Mother Medical History: Lung disease Father Medical History: Heart disease - Social History Smoking Status: Never smoker Alcohol use: No CD- Drugs: No Caffeine use: Yes Place of Residence: Home Review of Systems 10-point ROS is otherwise unremarkable Physical Examination - Vital Signs Temperature: 96.8 F Blood Pressure: 145/71 Pulse: 72 Respirations: 16 Pulse Ox (%): 95 - Physical Exam General: Alert, In no apparent distress, Oriented x3 HEENT: Atraumatic, PERRLA, Mucous membr. moist/pink, EOMI, Sclerae nonicteric Neck: Supple, 2+ carotid pulse no bruit, No LAD, Without JVD or thyroid abnormality Respiratory: Clear to auscultation bilaterally, Normal air movement Cardiovascular: Regular rate/rhythm, Normal S1 S2, No murmurs Gastrointestinal: Normal bowel sounds, Soft and benign, Non-distended, No tenderness Musculoskeletal: No clubbing, No tenderness, Swelling Integumentary: Diabetic ulcer Neurological: Normal gait, Normal speech, Normal strength at 5/5 x4 extr, Normal tone, Sensation intact, Cranial nerves 3-12 intact, Normal affect Lymphatics: No axilla or inguinal lymphadenopathy - Studies Laboratory Data (last 24 hrs) 02/10/18 19:14: Sodium Cancelled, Potassium Cancelled, BUN Cancelled, Creatinine Cancelled, Glucose Cancelled 02/10/18 15:50: PT 10.8, INR 0.92, APTT 28.5 02/10/18 15:50: WBC 6.2, Hgb 7.8 L*, Hct 24.6 L, Plt Count 254 02/10/18 15:50: B-Natriuretic Peptide 749 H 02/10/18 15:50: Sodium 134 L, Potassium 6.3 H*, BUN 100 H, Creatinine 13.26 H*, Glucose 120, Magnesium 2.9 H, Total Bilirubin 0.5, AST 9 L, ALT 10, Alkaline Phosphatase 67 Assessment & Plan - Problems (Diagnosis) (1) Anasarca Current Visit: Yes Status: Acute (2) End stage renal disease Onset Date: 12/20/17 Current Visit: No Status: Acute (3) Gastroparesis Onset Date: 09/28/16 Current Visit: No Status: Acute (4) Hyperkalemia Onset Date: 12/20/17 Current Visit: No Status: Acute (5) Hypertension Onset Date: 12/20/17 Current Visit: No Status: Acute Qualifiers: (6) Lower extremity edema Onset Date: 12/20/17 Current Visit: No Status: Acute (7) Diabetes Onset Date: 12/20/17 Current Visit: No Status: Chronic (8) Ischemic foot ulcer due to atherosclerosis of [place] artery of limb Current Visit: No Status: Resolved - Plan Plan: 1. IV diuretics 2. IV albumin 3. Monitor labs closely 4. Nephrology consultation for hemodialysis 5. Kayexalate 6. IV bicarb 7. Doppler of the left upper extremity 8. GI and DVT prophylaxis Discharge Plan: Home Plan to discharge in: 48 Hours - Advance Directives Does patient have a Living Will: No Does patient have a Durable POA for Healthcare: No - Code Status/Comfort Care Code Status Assessed: Yes Code Status: Full Code Critical Care: No Time Spent Managing PTS Care (In Minutes): 50
[2018-02-11] MEDS: INSULIN -REGULAR HUMAN 50 UNIT/0.5 ML ML SQ SCH ×5 (06:00→21:00)
[2018-02-11 07:23] LABS: Albumin 2.9 g/dL (3.2-5.5); Bilirubin Total 0.4 mg/dL (0.3-1.2); Protein, Total 4.9 g/dL (6.0-8.3)
[2018-02-11 07:24] LABS: Potassium 6.6 mEq/L (3.6-5.0)
[2018-02-11] MEDS: METOCLOPRAMIDE 5 MG TAB PO SCH ×3 (07:30→16:43)
[2018-02-11] MEDS: AMYLASE PO SCH ×3 (09:00→21:00)
[2018-02-11] MEDS: PROTEASE PO SCH ×3 (09:00→21:00)
[2018-02-11] MEDS: LIPASE PO SCH ×3 (09:00→21:00)
[2018-02-11] MEDS: PANTOPRAZOLE 40MG TABLET PO SCH ×3 (09:00→10:56)
[2018-02-11] MEDS: AMLODIPINE 5 MG TAB PO SCH (10:38)
[2018-02-11] MEDS: GABAPENTIN 100 MG CAP PO SCH ×3 (10:40→22:08)
[2018-02-11] MEDS: VITAMIN D 5,000 UNIT CAP PO SCH (10:40)
[2018-02-11] MEDS: FUROSEMIDE 40 MG TABLET PO SCH ×2 (10:40→22:09)
[2018-02-11] MEDS ORDERED: ALTEPLASE 2 MG/VIAL IV ONE (11:00)
[2018-02-11] MEDS ORDERED: TRAMADOL HCL 50 MG TAB PO PRN (11:00)
[2018-02-11] MEDS: HYDROCODONE/APAP 7.5/325 MG TAB PO PRN ×2 (11:25→22:19)
[2018-02-11] MEDS: ATENOLOL 50 MG TAB PO SCH ×2 (13:32→22:08)
[2018-02-11] MEDS: CARVEDILOL 6.25 MG TAB PO SCH ×2 (13:33→22:09)
--- NOTE | 2018-02-11 14:36 | RAD REPORT ---
EXAM DESCRIPTION: VAS - Extremity Venous Uni Ltd - 02/11/2018 2:10 pm CLINICAL HISTORY: Left arm pain and swelling COMPARISON: None. TECHNIQUE: Real-time sonographic evaluation of the left upper extremity deep venous systems was perf ormed. FINDINGS: Normal compressibility, flow augmentation, phasic flow and spontaneous flow are identified in the left upper extremity deep venous system. No intraluminal filling defects seen. Internal jugul ar and subclavian veins are normal as well. IMPRESSION: No DVT in the left upper extremity.
--- NOTE | 2018-02-11 16:08 | P.PN ---
Subjective Date of Service: 02/11/18 Primary Care Provider: Unknown Chief Complaint: Anasarca Subjective: Other (Patient doing better) Physical Examination - Vital Signs Temperature: 97 F Blood Pressure: 170/74 Pulse: 89 Respirations: 18 Pulse Ox (%): 98 - Physical Exam General: Alert, In no apparent distress, Cooperative HEENT: Atraumatic Neck: Supple Respiratory: Clear to auscultation bilaterally, Normal air movement Cardiovascular: Normal pulses, Regular rate/rhythm Gastrointestinal: Normal bowel sounds, Soft and benign, Non-distended, No tenderness, No masses, No rebound, No guarding Musculoskeletal: No erythema, No tenderness, No warmth Integumentary: No erythema, No warmth, No cyanosis, Tenderness/swelling ( swelling to the upper and lower ext still present. ) Neurological: Normal speech, Normal strength at 5/5 x4 extr, Normal tone, Normal affect Lymphatics: No axilla or inguinal lymphadenopathy - Studies Laboratory Data (last 24 hrs) 02/10/18 15:50: PT 10.8, INR 0.92, APTT 28.5 02/10/18 15:50: WBC 6.2, Hgb 7.8 L*, Hct 24.6 L, Plt Count 254 02/10/18 15:50: B-Natriuretic Peptide 749 H 02/10/18 15:50: Sodium 134 L, Potassium 6.3 H*, BUN 100 H, Creatinine 13.26 H*, Glucose 120, Magnesium 2.9 H, Total Bilirubin 0.5, AST 9 L, ALT 10, Alkaline Phosphatase 67 Medications List Reviewed: Yes Assessment & Plan - Problems (Diagnosis) (1) Diabetes mellitus Current Visit: Yes Status: Chronic Plan: Will continue with sliding scale. Will monitor closely. Will check A1c. Patient using insulin at home. Qualifiers: Diabetes mellitus type: type 2 Diabetes mellitus care home insulin use: with rodent exterminator use Diabetes mellitus complication status: with other specified complication Qualified Code(s): E11.69 - Type 2 diabetes mellitus with other specified complication; Z79.4 - MCFP (current) use of insulin; Z79.4 - MCFP (current) use of insulin; Z79.4 - ad 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; Z79.4 - ad 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 (2) End stage renal disease Onset Date: 12/20/17 Current Visit: Yes Status: Acute Plan: Patient with end-stage renal disease. Unfortunately the patient is not a citizen of the [place] Patient will get dialysis tomorrow. Anticipate discharge if improved. Case discussed with nephrology. (3) Anemia Current Visit: No Status: Acute Plan: This is likely of chronic disease. Will monitor closely. Patient may require transfusion if hemoglobin less than 7.0 Qualifiers: Anemia type: due to chronic kidney disease Chronic kidney disease stage: stage 5, not on chronic dialysis Qualified Code(s): N18.5 - Chronic kidney disease, stage 5; D63.1 - Anemia in chronic kidney disease; D63.1 - Anemia in chronic kidney disease (4) Hypertension Onset Date: 12/20/17 Current Visit: No Status: Chronic Plan: Will continue with blood pressure medication. Qualifiers: Hypertension type: essential hypertension (5) GERD (gastroesophageal reflux disease) Current Visit: Yes Status: Chronic Plan: Will continue with medication. Qualifiers: Esophagitis presence: esophagitis presence not specified Qualified Code(s) : K21.9 - Gastro-esophageal reflux disease without esophagitis (6) Hyperkalemia Current Visit: Yes Status: Acute Plan: Will continue with dialysis. Discharge Plan: Home Plan to discharge in: 24 Hours Time Spent Managing Pts Care (In Minutes): 55
--- NOTE | 2018-02-11 17:02 | P.CNS ---
Date of Consult: 02/11/18 Reason for Consult: ESRD Requesting Physician: David Ladd Primary Care Provider: Unknown Chief Complaint: Anasarca History of Present Illness: Patient is a 47-year-old female who has a history of end-stage renal disease. Unfortunately she is an illegal immigrant and she does not qualify for hemodialysis. She has not had dialysis for over 2 months. Patient came in with hyperkalemia and severe volume overload. Patient is not able to give me much history. Her left upper extremity is swollen as well as her bilateral lower extremities. She has a left below-knee amputation. She has a wound on her right foot. Her prognosis is very poor unless we can find away to get her hemodialysis. Allergies No Known Allergies Allergy (Verified 12/20/17 01:04) Home medications list reviewed: Yes Home Medications: Amlodipine [Norvasc] 5 mg PO DAILY 02/10/18 Atenolol 50 mg PO BID 02/10/18 Carvedilol 6.25 mg PO BID 02/10/18 Cholecalciferol (Vitamin D3) [Vitamin D 5,000 IU Cap*] 1 tab PO DAILY 02/10/18 Furosemide [Lasix] 3 tab PO BID 02/10/18 Gabapentin [Neurontin] 100 mg PO TID 02/10/18 Insulin Glargine,Hum.rec.anlog [T[place]ahlia Solostar] 40 unit SQ DAILY 02/10/18 Lipase/Protease/Amylase [German Samuels 12,000 Units Capsule] 24,000 unit PO TID 02/10 Metoclopramide HCl [Reglan] 10 mg PO AC 02/10/18 Omeprazole 20 mg PO DAILY 02/10/18 Simvastatin 80 mg PO BEDTIME 02/10/18 - Past Medical/Surgical History Diabetic: Yes -: IDDM -: HTN -: high cholesterol -: HTN -: Tachycardia -: GI bleed -: Pancreatitis -: chronic kidney disease -: recurrent gastroparesis -: cellulitis left foot -: Choleycystectomy -: amp left pinky toe by Dr. Barney jul 2015 -: PICC line -: L BKA Oct 2015 - Family History Mother Medical History: Lung disease Father Medical History: Heart disease - Social History Smoking Status: Never smoker Alcohol use: No CD- Drugs: No Caffeine use: Yes Place of Residence: Home Review of Systems 10-point ROS is otherwise unremarkable General: Weakness, Malaise Respiratory: SOB with Excertion Cardiovascular: Edema Physical Examination Temp Pulse Resp BP Pulse Ox 97 F 89 18 170/74 H 98 02/11/18 16:08 02/11/18 16:08 02/11/18 16:08 02/11/18 16:08 02/11/18 16:08 General: Oriented x3, Cooperative HEENT: Atraumatic Neck: JVD distended Respiratory: Diminished Cardiovascular: Regular rate/rhythm, No rubs, Edema Gastrointestinal: Soft and benign, Non-distended Integumentary: No cyanosis Neurological: Normal speech Laboratory Data (last 24 hrs) 02/10/18 15:50: B-Natriuretic Peptide 749 H 02/10/18 15:50: BUN 100 H Conclusions/Impression: A/ ESRD on HD. Hyperkalemia. HTN with CKD. DM II with CKD. Anemia in CKD. A/C Diastolic CHF. HERBERT/ Secondary HyperPTH. P/ Continue current POC and Medications. Arrange for acute HD today and tomorrow. Restart home medications as indicated. AM labs. Daily weight. No NSAIDs. Case discussed with Dr. Ladd.
[2018-02-11] MEDS ORDERED: GLUCAGON 1 MG/VIAL IM PRN ×2 (21:54→21:58)
[2018-02-11] MEDS ORDERED: D50W 25 GM/50 ML SYRINGE IV PRN ×2 (21:54→21:58)
[2018-02-11] MEDS: ATORVASTATIN 40 MG TAB PO SCH (22:09)
[2018-02-12] MEDS: ALBUTEROL 2.5 MG/3 ML NEB SOL NEB SCH ×7 (03:16→22:59)
[2018-02-12] MEDS: IPRATROPIUM BROM 0.5MG/2.5ML NEB SCH ×7 (03:16→22:59)
[2018-02-12 06:15] LABS: Absolute Lymphocytes (CBC) 1.1 K/uL (0.7-4.9); Absolute Monocytes 0.3 K/uL (0.1-1.3); Absolute Neutrophil 2.2 K/uL (1.8-8.0); Basophils % 1.8 % (0-1.3); Eosinophils % 10.5 % (0-4.4); Hematocrit 21.4 % (36.0-45.0); Lymphocytes % 27.7 % (15.3-44.8); MCV 84.9 fL (80-100); MPV 8.2 fL (7.6-11.3); Monocytes % 7.1 % (3.3-12.3); RBC Red Blood Cell Count 2.53 M/uL (3.86-4.86)
[2018-02-12] MEDS: PANTOPRAZOLE 40MG TABLET PO SCH (06:18)
[2018-02-12 06:40] LABS: Magnesium 2.6 mg/dL (1.8-2.5)
[2018-02-12] MEDS ORDERED: INSULIN -REGULAR HUMAN 50 UNIT/0.5 ML ML SQ SCH (07:30)
[2018-02-12] MEDS: INSULIN -REGULAR HUMAN 50 UNIT/0.5 ML ML SQ SCH ×4 (07:30→21:00)
[2018-02-12] MEDS: ATENOLOL 50 MG TAB PO SCH ×2 (08:46→22:18)
[2018-02-12] MEDS: AMLODIPINE 5 MG TAB PO SCH (08:47)
[2018-02-12] MEDS: VITAMIN D 5,000 UNIT CAP PO SCH (08:47)
[2018-02-12] MEDS: METOCLOPRAMIDE 5 MG TAB PO SCH ×3 (08:47→17:05)
[2018-02-12] MEDS: CALCITROL 0.25 MCG CAP PO SCH (08:47)
[2018-02-12] MEDS: CARVEDILOL 6.25 MG TAB PO SCH ×2 (08:47→22:18)
[2018-02-12] MEDS: SEVELAMER CARBONATE 800 MG TABLET PO SCH ×3 (08:47→17:05)
[2018-02-12] MEDS: GABAPENTIN 100 MG CAP PO SCH ×3 (08:47→22:19)
[2018-02-12] MEDS: FUROSEMIDE 40 MG TABLET PO SCH ×2 (08:48→22:17)
[2018-02-12] MEDS: AMYLASE PO SCH ×3 (08:49→21:00)
[2018-02-12] MEDS: LIPASE PO SCH ×3 (08:49→21:00)
[2018-02-12] MEDS: PROTEASE PO SCH ×3 (08:49→21:00)
--- NOTE | 2018-02-12 11:25 | RAD REPORT ---
EXAM DESCRIPTION: RAD - Chest Single View - 02/12/2018 6:11 am CLINICAL HISTORY: Pulmonary edema COMPARISON: 02/10/2018 FINDINGS: Portable technique limits examination quality. Moderate improvement in lung aeration is seen since the comparative study. The heart is significantly enlarged. Right-sided dialysis catheter is in unchanged position. No displaced fractures. IMPRESSION: Moderate improvement lung aeration since comparative study.
[2018-02-12] MEDS: HYDROCODONE/APAP 7.5/325 MG TAB PO PRN ×2 (12:27→22:19)
--- NOTE | 2018-02-12 14:59 | PN ---
Date of Progress Note: 02/12/2018 Subjective: The patient seen and examined. Chart reviewed and case discussed with RN. The patient received dialysis yesterday and will be going for dialysis again today along with blood transfusion. Review of Systems: Negative except as above. Medications: Reviewed. Physical Examination: Vital Signs: Temperature 97.6, heart rate 71, blood pressure 133/75, respirations 18, O2 99% on 2 L via nasal cannula. General: Awake, alert, oriented x3. Some mild distress, morbidly obese female. BMI 40. CV: S1, S2. No murmurs. Regular rate and rhythm. Peripheral pulses present. Respiratory: Diminished breath sounds. Some crackles heard. Gastrointestinal: Abdomen is soft, nontender, and nondistended. Positive bowel sounds. Extremities: No clubbing, cyanosis. There is pedal edema. Neurologic: Nonfocal. Laboratory Data: Sodium 137, potassium 5, chloride 106, CO2 24, BUN 68, creatinine 9.88, glucose 128 , calcium 7.6, phosphorus 10, magnesium 2.6. WBC 4.1, H and H 6.6 and 21.4, platelets 224. Chest x- ray pending. Assessment And Plan: A 47-year-old female with: 1.End-stage renal disease with hemodialysis. The patient will be going for dialysis again today. 2.Acute on chronic anemia. Anemia likely secondary to chronic disease. The patient's H and H are d ropped to below 7. The patient will receive 2 units of PRBCs with dialysis. 3.Diabetes mellitus type 2 with long-term use of insulin with chronic kidney complications. We will continue with sliding scale insulin. Check hemoglobin A1c. 4.Essential hypertension, stable. Continue home medications. 5.Gastroesophageal reflux disease without esophagitis. Continue PPI. 6.Hyperkalemia, corrected with dialysis. 7.Hyperphosphatemia. The patient is going for dialysis today. We will monitor. 8.Gastrointestinal and deep venous thrombosis prophylaxis addressed. /MODL Voice ID: [id number] Report ID: [id number]
[2018-02-12] MEDS: ATORVASTATIN 40 MG TAB PO SCH (22:19)
[2018-02-13] MEDS ORDERED: METOPROLOL TARTRATE 5 MG/5 ML INJ IV STA (03:18)
[2018-02-13] MEDS: ALBUTEROL 2.5 MG/3 ML NEB SOL NEB SCH ×3 (04:05→12:00)
[2018-02-13] MEDS: IPRATROPIUM BROM 0.5MG/2.5ML NEB SCH ×3 (04:05→12:00)
[2018-02-13 04:47] LABS: HBsAG Nonreactive (Nonreactive)
[2018-02-13] MEDS: PANTOPRAZOLE 40MG TABLET PO SCH (05:38)
[2018-02-13] MEDS: HYDROCODONE/APAP 7.5/325 MG TAB PO PRN (05:38)
[2018-02-13] MEDS ORDERED: METOPROLOL TAR 25 MG TAB PO SCH (06:00)
[2018-02-13 06:13] LABS: Absolute Lymphocytes (CBC) 1.2 K/uL (0.7-4.9); Absolute Monocytes 0.4 K/uL (0.1-1.3); Absolute Neutrophil 2.4 K/uL (1.8-8.0); Basophils % 1.3 % (0-1.3); Eosinophils % 8.5 % (0-4.4); Hematocrit 22.1 % (36.0-45.0); Lymphocytes % 26.9 % (15.3-44.8); MCH 26.3 pg (27.0-35.0); MPV 8.2 fL (7.6-11.3); Monocytes % 8.6 % (3.3-12.3); RBC Red Blood Cell Count 2.64 M/uL (3.86-4.86)
[2018-02-13 06:32] LABS: Magnesium 2.2 mg/dL (1.8-2.5); Potassium 3.7 mEq/L (3.6-5.0)
[2018-02-13] MEDS: INSULIN -REGULAR HUMAN 50 UNIT/0.5 ML ML SQ SCH ×2 (07:30→11:30)
[2018-02-13 07:46] LABS: A1c Component 0.28 mg/dL
[2018-02-13 07:50] VITALS: O2SAT 98
[2018-02-13] MEDS: SEVELAMER CARBONATE 800 MG TABLET PO SCH ×2 (08:38→12:00)
[2018-02-13] MEDS: ATENOLOL 50 MG TAB PO SCH (08:38)
[2018-02-13] MEDS: CALCITROL 0.25 MCG CAP PO SCH (08:38)
[2018-02-13] MEDS: METOCLOPRAMIDE 5 MG TAB PO SCH ×2 (08:38→11:30)
[2018-02-13] MEDS: VITAMIN D 5,000 UNIT CAP PO SCH (08:38)
[2018-02-13] MEDS: FUROSEMIDE 40 MG TABLET PO SCH (08:39)
[2018-02-13] MEDS: GABAPENTIN 100 MG CAP PO SCH (08:39)
[2018-02-13] MEDS: AMLODIPINE 5 MG TAB PO SCH (08:39)
[2018-02-13] MEDS: CARVEDILOL 6.25 MG TAB PO SCH (08:39)
[2018-02-13] MEDS: AMYLASE PO SCH (08:40)
[2018-02-13] MEDS: PROTEASE PO SCH (08:40)
[2018-02-13] MEDS: LIPASE PO SCH (08:40)
[2018-02-13] MEDS ORDERED: ONDANSETRON 4 MG (ODT) TAB PO ONE (11:59)
[2018-02-13 12:47] VITALS: BP 184/87; TEMP 98.1
--- NOTE | 2018-02-13 13:15 | DS ---
Date of Discharge: 02/13/2018 Additional Bulb Planter: Dr. Marcum with Nephrology. Admitting Diagnoses: 1.Anasarca. 2.End-stage renal disease. 3.Gastroparesis. 4.Hyperkalemia. 5.Hypertension. 6.Lower extremity edema. 7.Diabetes. 8.Ischemic foot ulcer due to atherosclerosis of [place] artery of limb. 9.Status post right below-knee amputation. Discharge Diagnoses: 1.End-stage renal disease with hemodialysis. 2.Anasarca, improved. 3.Acute on chronic anemia secondary to anemia of chronic kidney disease. The patient is a Orthodox and refused blood transfusion. 4.Essential hypertension, stable. 5.Gastroesophageal reflux disease without esophagitis. PPI. 6.Hyperkalemia, corrected. 7.Hyperphosphatemia, corrected. 8.Morbid obesity, BMI 46. Hospital Course: The patient is a 47-year-old female, who was admitted with end-stage renal disease, not receiving dialysis due to her legal status. The patient has not had dialysis for over 2 months, comes in with volume overload and hyperkalemia. The patient was dialyzed. She was seen by Dr. Linh smith with Nephrology. The patient's condition improved. Her electrolytes were also corrected. The p atient does have chronic anemia due to her kidney disease, however, is a Orthodox and is tanmay ble to except blood, refusing transfusion. The patient then improved. She was then cleared for disc harge from customs consultant's standpoint. Her chest x-ray showed moderate improvement in lung aeration sin ce comparative study. The patient did have a lower extremity Doppler done, which did not show any DV T. The patient was then discharged home in a stable condition. Activity: As tolerated. Medications: As per medication reconciliation list. Followup: Follow up with Dr. Marcum in 2 weeks. Follow up with primary care physician in 2-3 days. Return to ER for worsening condition. Physical Examination: General: Awake, alert, oriented, no acute distress. CV: S1, S2. No murmurs. Respiratory: Moving air well bilaterally. Gastrointestinal: Abdomen is soft, nontender, nondistended. Positive bowel sounds. Extremities: No clubbing, cyanosis with some pedal edema. Musculoskeletal: BKA on the left side. Neurologic: Nonfocal. SA/MODL Voice ID: [id number] Report ID: [id number]
== END 2018-02-13 12:37 | disposition home or self-care (01) ==
LOC: ER 14:43 → ERHOLD 18:42 → 2ND 19:35 → INTOOBSV 21:26 → OBSVTOIN 21:26
PROVIDERS: ADMIT Internal Medicine; ATTEND Hospitalist
PROC: 5A1D70Z Performance of Urinary Filtration, Intermittent, Less than 6 Hours Per Day (ICD-10-PCS; principal; 2018-02-11)
PROC: 5A1D70Z Performance of Urinary Filtration, Intermittent, Less than 6 Hours Per Day (ICD-10-PCS; 2018-02-11)
DX: I13.2 Hypertensive heart and chronic kidney disease with heart failure and with stage 5 chronic kidney disease, or end stage renal disease (principal); E11.22 Type 2 diabetes mellitus with diabetic chronic kidney disease; N18.6 End stage renal disease; I50.33 Acute on chronic diastolic (congestive) heart failure; E87.5 Hyperkalemia; D63.1 Anemia in chronic kidney disease; Z89.512 Acquired absence of left leg below knee; K21.9 Gastro-esophageal reflux disease without esophagitis
CPT/HCPCS: 36415; 71045; 80048; 80053; 80076; 82550; 82553; 82962; 83036; 83735; 83880; 84100; 84484; 85025; 85610; 85730; 86317; 86704; 86706; 86850; 86900; 86901; 87340; 90935; 93005; 93971; 94640; 94760; 96365; 96375; 99285; G0378; J0610; J1940; J2405; J2997; P9047; Q4081

== ENCOUNTER 2018-02-15 23:10 | Emergency (ER) | payer SELFPAY ==
[2018-02-16] MEDS ORDERED: HALOPERIDOL LACT 5 MG/ML INJ ONE (02:07)
[2018-02-16] MEDS ORDERED: DICYCLOMINE HCL 20 MG/2 ML AMP IM ONE (02:10)
[2018-02-16 02:19] LABS: Absolute Monocytes 0.3 K/uL (0.1-1.3); Absolute Neutrophil 7.2 K/uL (1.8-8.0); Basophils % 0.4 % (0-1.3); Hematocrit 29.1 % (36.0-45.0); Lymphocytes % 11.6 % (15.3-44.8); MCH 26.5 pg (27.0-35.0); MPV 8.2 fL (7.6-11.3); Monocytes % 3.7 % (3.3-12.3); RBC Red Blood Cell Count 3.42 M/uL (3.86-4.86)
[2018-02-16 02:33] LABS: Albumin 3.3 g/dL (3.2-5.5); Bilirubin Total 0.8 mg/dL (0.3-1.2); Protein, Total 6.3 g/dL (6.0-8.3)
--- NOTE | 2018-02-16 04:49 | ER ---
Nurse's Notes [facility] Name: Theresa Mancia Age: 47 yrs Sex: Female : 1970 Arrival Date: 02/15/2018 Time: 23:11 Bed 19 Private MD: Diagnosis: Gastroparesis. Abdominal pain. Presentation: 02/15 23:41 Presenting complaint: Patient states: that she is having abd pain along with nausea and fc vomiting that started on yesterday. Also having swelling to both hands. Transition of care: patient was not received from another setting of care. Onset of symptoms was February 14, 2018. Initial Sepsis Screen: Does the patient meet any 2 criteria? No. Patient's initial sepsis screen is negative. Does the patient have a suspected source of infection? No. Patient's initial sepsis screen is negative. Care prior to arrival: None. 23:41 Method Of Arrival: Wheelchair fc 23:41 Acuity: MISHEL 3 fc Triage Assessment: 02/16 00:27 General: Behavior is calm, cooperative, appropriate for age. GI: Reports nausea, ao vomiting. 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 LMP N/A - Post-menopause fc Historical: - Allergies: 23:48 No Known Allergies; fc - Home Meds: 23:48 ferrous sulfate 325 mg (65 mg iron) Oral tab daily [Active]; Creon 24,000-76,000 fc -120,000 unit Oral cpDR 1 caps 3 times per day [Active]; simvastatin 80 mg Oral tab nightly [Active]; calcitriol 0.25 mcg oral cap 2 caps once daily [Active]; amlodipine 5 mg tab 1 tab once daily [Active]; carvedilol 6.25 mg Oral tab 1 tab 2 times per day [Active]; Vitamin D 5,000 unit Oral daily [Active]; Lasix 40 mg Oral tab 3 tabs 2 times per day [Active]; omeprazole 20 mg Oral TbEC 20 mg daily [Active]; Reglan 10 mg Oral tab 1 tab before meals [Active]; gabapentin 100 mg Oral cap 1 caps 3 times per day [Active]; atenolol 50 mg Oral tab 1 tab 2 times per day [Active]; Toujeo SoloStar 300 unit/mL (1.5 mL) subcutaneous inpn 40 unit daily [Active]; - PMHx: 23:48 Diabetes - IDDM; Dialysis; Gastroparesis; Hypertension; Renal Disease; fc - PSHx: 23:48 Left AKA; Cholecystectomy; fc - Immunization history:: Last tetanus immunization: up to date. - Social history:: Smoking status: Patient/guardian denies using tobacco. Screenin/02 00:27 Abuse screen: Denies threats or abuse. Denies injuries from another. Nutritional ao screening: No deficits noted. Tuberculosis screening: No symptoms or risk factors identified. Fall Risk None identified. Assessment: 00:26 General: Appears in no apparent distress. comfortable. Pain: Complains of pain in ao abdomen. Neuro: Level of Consciousness is awake, alert, obeys commands, Oriented to person, place, time, situation, Appropriate for age Moves all extremities. Cardiovascular: Patient's skin is warm and dry. Respiratory: Airway is patent Respiratory effort is even, unlabored, Respiratory pattern is regular, symmetrical. GI: Abdomen is non-distended. : No signs and/or symptoms were reported regarding the genitourinary system. EENT: No signs and/or symptoms were reported regarding the EENT system. Derm: No signs and/or symptoms reported regarding the dermatologic system. Musculoskeletal: Amputation of left leg. 01:31 Reassessment: Patient appears in no apparent distress at this time. Patient and/or ao family updated on plan of care and expected duration. Pain level reassessed. Patient is alert, oriented x 3, equal unlabored respirations, skin warm/dry/pink. Waiting on a providers to see patient. No orders at this moment. 02:29 Reassessment: Patient appears in no apparent distress at this time. No changes from ao previously documented assessment. Patient and/or family updated on plan of care and expected duration. Pain level reassessed. Patient is alert, oriented x 3, equal unlabored respirations, skin warm/dry/pink. Patient has been medicated as ordered by Dr Napoles. 02:35 Reassessment: Receive a lab alert creating 8.88. Dr Napoles notified. ao 03:40 Reassessment: Patient to be discharge. I have called to come to pick patient ao but have been directed to voice mail. Patient will be discharge home when a family member come to pick her up. Vital Signs: 02/15 23:49 Weight 104.33 kg (R); Height 5 ft. 0 in. (152.40 cm) (R); Pain 10/10; fc 23:50 BP 192 / 113; Pulse 79; Resp 16; Temp 98.2(TE); Pulse Ox 92% on R/A; fc 02/16 01:31 BP 188 / 106; Pulse 72; Resp 20; Pulse Ox 98% ; ao 02:29 BP 177 / 75; Pulse 77; Resp 16; Pulse Ox 99% on R/A; ao 03:40 BP 158 / 58; Pulse 77; Resp 16; Pulse Ox 98% on 2 lpm NC; ao 04:25 BP 174 / 85; Pulse 74; Resp 16; Pulse Ox 98% on 2 lpm NC; ao 02/15 23:49 Body Mass Index 44.92 (104.33 kg, 152.40 cm) ED Course: 02/15 23:11 Patient arrived in ED. al2 23:42 Triage completed. fc 23:49 Arm band placed on right wrist. Patient placed in waiting room, Patient notified of wait time. 02/16 00:26 Kevin Aguilera, RN is Primary Nurse. ao 00:27 Patient has correct armband on for positive identification. Pulse ox on. NIBP on. ao 01:32 Jamey Napoles MD is Attending Physician. ps1 02:03 Inserted saline lock: 22 gauge in right antecubital area, using aseptic technique. bs1 02:55 EKG done, by ED staff, reviewed by Jamey Napoles MD. cc 04:23 No provider procedures requiring assistance completed. IV discontinued, intact, ao bleeding controlled, No redness/swelling at site. Pressure dressing applied. Administered Medications: 02:22 Drug: Bentyl 20 mg Route: IM; Site: right gluteus; ao 03:43 Follow up: Response: No adverse reaction ao 02:23 Drug: Zofran 4 mg Route: IVP; Site: right antecubital; ao 03:43 Follow up: Response: No adverse reaction ao 02:23 Drug: HALdol 2.5 mg Route: IVP; Site: right antecubital; ao 03:43 Follow up: Response: No adverse reaction ao Outcome: 03:27 Discharge ordered by . ps1 04:24 Discharged to home ambulatory. ao 04:24 Condition: stable 04:24 Discharge instructions given to patient, significant other, Patient instructed to follow up outpatient or came back to the ED if any problem get worst Instructed on discharge instructions, follow up and referral plans. Demonstrated understanding of 04:25 Patient left the ED. ao Signatures: Diamond Reed, RN RN Marci Epstein Alex RN RN Jamey Mcdermott MD MD ps1 Salazar, Brittany, RN RN bs1 Peggy Romero Corrections: (The following items were deleted from the chart) 02/15 23:49 23:41 Immunization history: Last tetanus immunization: unknown, [facility]
--- NOTE | 2018-02-16 04:49 | EDPHYS ---
Physician Documentation [facility] Name: Theresa Mancia Age: 47 yrs Sex: Female : 1970 Arrival Date: 02/15/2018 Time: 23:11 Bed 19 Private MD: ED Physician Jamey Napoles HPI: 02/16 02:38 This 47 yrs old Female presents to ER via Wheelchair with complaints of ps1 Nausea/Vomiting, Abdominal Pain, SWELLING. 02:38 The patient presents to the emergency department with nausea, vomiting, abdominal pain, ps1 hx of gastroparesis and DM. Hx of same for 3 years. Does not follow up with GI. Pt of Dr. Graham additionally, on reglan intermittently. Pain is epigastric. Rated moderate and intermittent. Pain is not different from other episodes. Comes to ED for treatment because it is too expensive to call her regular doctor or see a specialist. . 02:38 additionally on dialysis TTS and missed dialysis today. . 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 LMP N/A - Post-menopause fc Historical: - Allergies: 23:48 No Known Allergies; fc - Home Meds: 23:48 ferrous sulfate 325 mg (65 mg iron) Oral tab daily [Active]; Creon 24,000-76,000 fc -120,000 unit Oral cpDR 1 caps 3 times per day [Active]; simvastatin 80 mg Oral tab nightly [Active]; calcitriol 0.25 mcg oral cap 2 caps once daily [Active]; amlodipine 5 mg tab 1 tab once daily [Active]; carvedilol 6.25 mg Oral tab 1 tab 2 times per day [Active]; Vitamin D 5,000 unit Oral daily [Active]; Lasix 40 mg Oral tab 3 tabs 2 times per day [Active]; omeprazole 20 mg Oral TbEC 20 mg daily [Active]; Reglan 10 mg Oral tab 1 tab before meals [Active]; gabapentin 100 mg Oral cap 1 caps 3 times per day [Active]; atenolol 50 mg Oral tab 1 tab 2 times per day [Active]; Toujeo SoloStar 300 unit/mL (1.5 mL) subcutaneous inpn 40 unit daily [Active]; - PMHx: 23:48 Diabetes - IDDM; Dialysis; Gastroparesis; Hypertension; Renal Disease; fc - PSHx: 23:48 Left AKA; Cholecystectomy; fc - Immunization history:: Last tetanus immunization: up to date. - Social history:: Smoking status: Patient/guardian denies using tobacco. ROS: 02/16 02:38 Constitutional: Negative for fever, chills, and weight loss, Eyes: Negative for injury, ps1 pain, redness, and discharge, ENT: Negative for injury, pain, and discharge, Cardiovascular: Negative for chest pain, palpitations, and edema, Respiratory: Negative for shortness of breath, cough, wheezing, and pleuritic chest pain. Abdomen/GI: Positive for cramping, nausea, vomiting, gastroparesis. . 02:38 MS/Extremity: Negative for injury and deformity, Skin: Negative for injury, rash, and ps1 discoloration, Neuro: Negative for headache, weakness, numbness, tingling, and seizure, Psych: Negative for depression, anxiety, suicide ideation, homicidal ideation, and hallucinations. Exam: 02:38 Constitutional: This is a well developed, well nourished patient who is awake, alert, ps1 and in no acute distress. Head/Face: Normocephalic, atraumatic. Eyes: Pupils equal round and reactive to light, extra-ocular motions intact. Lids and lashes normal. Conjunctiva and sclera are non-icteric and not injected. Chest/axilla: Normal chest wall appearance and motion. Nontender with no deformity. No lesions are appreciated. Chan cath present. Cardiovascular: Regular rate and rhythm. No gallops, murmurs, or rubs. Normal PMI, no JVD. No pulse deficits. Respiratory: Lungs have equal breath sounds bilaterally, clear to auscultation and percussion. No rales, rhonchi or wheezes noted. No increased work of breathing, no retractions or nasal flaring. Abdomen/GI: Soft, non-tender, with normal bowel sounds. No distension or tympany. No guarding or rebound. No evidence of tenderness throughout. 02:38 MS/ Extremity: Pulses equal, no cyanosis. Neurovascular intact. Full, normal range of motion. Neuro: Awake and alert, GCS 15, oriented to person, place, time, and situation. Cranial nerves II-XII grossly intact. Sensory grossly intact. Psych: Awake, alert, with orientation to person, place and time. Behavior, mood, and affect are within normal limits. Vital Signs: 02/15 23:49 Weight 104.33 kg (R); Height 5 ft. 0 in. (152.40 cm) (R); Pain 10/10; fc 23:50 BP 192 / 113; Pulse 79; Resp 16; Temp 98.2(TE); Pulse Ox 92% on R/A; fc 02/16 01:31 BP 188 / 106; Pulse 72; Resp 20; Pulse Ox 98% ; ao 02:29 BP 177 / 75; Pulse 77; Resp 16; Pulse Ox 99% on R/A; ao 03:40 BP 158 / 58; Pulse 77; Resp 16; Pulse Ox 98% on 2 lpm NC; ao 04:25 BP 174 / 85; Pulse 74; Resp 16; Pulse Ox 98% on 2 lpm NC; ao 02/15 23:49 Body Mass Index 44.92 (104.33 kg, 152.40 cm) fc MDM: 02:33 Patient medically screened. ps1 03:29 Data reviewed: vital signs, nurses notes, lab test result(s), EKG, radiologic studies. ps1 ED course: pain improved. Labs reviewed and does not require emergent dialysis. Patient to go to dialysis center as scheduled. Pt to follow up with Dr. Graham for reevaluation for chronic problems and consideration for GI evaluation. . 02/16 01:47 Order name: CBC with Diff; Complete Time: 02:33 ps1 02/16 01:47 Order name: CMP; Complete Time: 02:38 ps1 02/16 01:47 Order name: Lipase; Complete Time: 02:38 ps1 02/16 01:47 Order name: EKG; Complete Time: 01:47 ps1 02/16 01:53 Order name: EKG - Nurse/Tech; Complete Time: 02:55 ao Administered Medications: 02:22 Drug: Bentyl 20 mg Route: IM; Site: right gluteus; ao 03:43 Follow up: Response: No adverse reaction ao 02:23 Drug: Zofran 4 mg Route: IVP; Site: right antecubital; ao 03:43 Follow up: Response: No adverse reaction ao 02:23 Drug: HALdol 2.5 mg Route: IVP; Site: right antecubital; ao 03:43 Follow up: Response: No adverse reaction ao Disposition: 02/16/18 03:27 Discharged to Home. Impression: Gastroparesis. Abdominal pain. . - Condition is Stable. - Discharge Instructions: Abdominal Pain, Adult. - Prescriptions for Bentyl 10 mg Oral Capsule - take 1 capsule by ORAL route every 6 hours As needed; 40 capsule. Reglan 10 mg Oral Tablet - take 1 tablet by ORAL route every 6 hours take 30 minutes before meals and at bedtime; 20 tablet. Zofran 4 mg Oral Tablet - take 1 tablet by ORAL route every 12 hours As needed; 20 tablet. - Medication Reconciliation Form, Thank You Letter, Antibiotic Education, Prescription Opioid Use form. - Follow up: Private Physician; When: As needed; Reason: Recheck today's complaints, Continuance of care, Re-evaluation by your physician. Follow up: Emergency Department; When: As needed; Reason: Worsening of condition. - Problem is an ongoing problem. - Symptoms have worsened. Signatures: Dispatcher [employer] EDMS Diamond Reed RN RN Kevin Aguilera RN RN ao Singer, Phillip, MD MD ps1 Corrections: (The following items were deleted from the chart) 02/15 23:49 23:41 Immunization history: [facility] tet[facility]: [facility]
[2018-02-16 05:43] VITALS: TEMP 98.2
[2018-02-16 05:46] VITALS: O2SAT 98
[2018-02-16 05:48] VITALS: BP 174/85
--- NOTE | 2018-02-16 10:20 | EKG ---
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
== END 2018-02-16 04:25 | disposition home or self-care (01) ==
LOC: ER 23:10
DX: K31.84 Gastroparesis (principal); E11.9 Type 2 diabetes mellitus without complications; I10 Essential (primary) hypertension; N28.9 Disorder of kidney and ureter, unspecified; Z99.2 Dependence on renal dialysis
CPT/HCPCS: 36415; 80053; 83690; 85025; 93005; 96372; 96374; 96375; 99284; J0500; J1630

== ENCOUNTER 2018-03-25 22:02 | Emergency (ER) | payer SELFPAY ==
[2018-03-25] MEDS ORDERED: METOCLOPRAMIDE 10 MG/2mL INJ ONE (23:20)
[2018-03-25] MEDS ORDERED: ONDANSETRON 4 MG/2 ML VIAL ONE (23:20)
[2018-03-25] MEDS ORDERED: MORPHINE 4 MG/ML SYR ONE (23:20)
[2018-03-25 23:41] LABS: Absolute Lymphocytes (CBC) 1.4 K/uL (0.7-4.9); Absolute Monocytes 0.3 K/uL (0.1-1.3); Absolute Neutrophil 6.8 K/uL (1.8-8.0); Basophils % 2.1 % (0-1.3); Eosinophils % 0.2 % (0-4.4); Hematocrit 28.5 % (36.0-45.0); MCH 24.5 pg (27.0-35.0); MPV 8.1 fL (7.6-11.3); Monocytes % 3.5 % (3.3-12.3); RBC Red Blood Cell Count 3.51 M/uL (3.86-4.86)
[2018-03-25 23:46] LABS: Bicarbonate 27 mEq/L (21-31); Glucose Level 176 mg/dL (65-120); Lipase 18 U/L (22-51); Potassium 3.8 mEq/L (3.6-5.0); Sodium Level 135 mEq/L (135-145)
[2018-03-25 23:52] LABS: ALT/SGPT 11 IU/L (10-60); AST/SGOT 26 IU/L (10-42); Albumin 3.2 g/dL (3.2-5.5); Alkaline Phosphatase 74 IU/L (42-121); BUN Blood Urea Nitrogen 23 mg/dL (6-20); Bilirubin Direct < 0.1 mg/dL (0-0.2); Bilirubin Total 0.6 mg/dL (0.3-1.2); Protein, Total 5.7 g/dL (6.0-8.3)
[2018-03-26] MEDS ORDERED: cloNIDine HCl 0.1 MG TAB ONE (01:38)
--- NOTE | 2018-03-26 03:04 | EDPHYS ---
Physician Documentation [facility] Name: Theresa Mancia Age: 47 yrs Sex: Female : 1970 Arrival Date: 03/25/2018 Time: 22:03 Bed 20 Private MD: ED Physician Anand Whitmore HPI: 03/25 22:59 This 47 yrs old Female presents to ER via Wheelchair with complaints of rn Vomiting. 22:59 The patient presents to the emergency department with nausea, vomiting, abdominal pain. rn Onset: The symptoms/episode began/occurred 3 day(s) ago. Possible causes: unknown. Severity of symptoms: At their worst the symptoms were moderate in the emergency department the symptoms are unchanged. The patient has experienced similar episodes in the past. The patient has not recently seen a physician. 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 LMP N/A - Irregular menses bs1 Historical: - Allergies: 03/25 22:24 No Known Allergies; fc - Home Meds: 22:24 Reglan 10 mg Oral tab 1 tab once daily [Active]; Toujeo SoloStar 300 unit/mL (1.5 mL) fc subcutaneous inpn 40 unit daily [Active]; Creon 24,000-76,000 -120,000 unit Oral cpDR 1 caps 3 times per day [Active]; calcitriol 0.25 mcg Oral cap 2 caps once daily [Active]; amlodipine 5 mg tab 1 tab once daily [Active]; Lasix 40 mg Oral tab 3 tabs 2 times per day [Active]; simvastatin 80 mg Oral tab nightly [Active]; omeprazole 20 mg Oral TbEC 20 mg daily [Active]; gabapentin 100 mg Oral cap 1 caps 3 times per day [Active]; Vitamin D 5,000 unit Oral daily [Active]; atenolol 50 mg Oral tab 1 tab 2 times per day [Active]; carvedilol 6.25 mg Oral tab 1 tab 2 times per day [Active]; ferrous sulfate 325 mg (65 mg iron) Oral tab daily [Active]; - PMHx: 22:24 Diabetes - IDDM; Gastroparesis; Hypertension; Renal Disease; Dialysis; fc - PSHx: 22:24 Left AKA; Cholecystectomy; right chest wall jasmyn; fc - Immunization history:: Last tetanus immunization: up to date. - Social history:: Smoking status: Patient/guardian denies using tobacco. - Ebola Screening: : Patient negative for fever greater than or equal to 101.5 degrees Fahrenheit, and additional compatible Ebola Virus Disease symptoms Patient denies exposure to infectious person Patient denies travel to an Ebola-affected area in the 21 days before illness onset. - Family history:: not pertinent. - Hospitalizations: : No recent hospitalization is reported. ROS: 22:59 Constitutional: Negative for fever, chills, and weight loss, Eyes: Negative for injury, rn pain, redness, and discharge, Neck: Negative for injury, pain, and swelling, Cardiovascular: Negative for chest pain, palpitations, and edema, Respiratory: Negative for shortness of breath, cough, wheezing, and pleuritic chest pain, Abdomen/GI: + ad Exam: 03/26 03:01 Constitutional: This is a well developed, well nourished patient who is awake, alert, rn appears to be mildly uncomfortable Head/Face: Normocephalic, atraumatic. Eyes: Pupils equal round and reactive to light, extra-ocular motions intact. Lids and lashes normal. Conjunctiva and sclera are non-icteric and not injected. Cornea within normal limits. Periorbital areas with no swelling, redness, or edema. Cardiovascular: Regular rate and rhythm with a normal S1 and S2. No gallops, murmurs, or rubs. Normal PMI, no JVD. No pulse deficits. Respiratory: Lungs have equal breath sounds bilaterally, clear to auscultation and percussion. No rales, rhonchi or wheezes noted. No increased work of breathing, no retractions or nasal flaring. Abdomen/GI: soft, mild epigastric tenderness, no rebound MS/ Extremity: Pulses equal, no cyanosis. Neurovascular intact. Full, normal range of motion. Equal circumference. Neuro: Awake and alert, GCS 15, oriented to person, place, time, and situation. Cranial nerves II-XII grossly intact. Sensory grossly intact. Cerebellar exam normal. + LLE amputation, otherwise normal strength throughout Vital Signs: 03/25 22:24 BP 207 / 98; Pulse 111; Resp 22; Temp 98.5; Pulse Ox 98% on R/A; Pain 10/10; fc 03/26 00:26 BP 205 / 95; Pulse 100; Resp 18; Pulse Ox 92% on R/A; bs1 01:26 BP 195 / 97; Pulse 109; Resp 18 S; Pulse Ox 91% on 2 lpm NC; bs1 02:04 BP 184 / 92; Pulse 102; Resp 20; Pulse Ox 91% on 2 lpm NC; bs1 02:51 BP 182 / 94; Pulse 95; Resp 20; Pulse Ox 100% on 2 lpm NC; bs1 03:30 BP 174 / 88; Pulse 95; Resp 20; Temp 97.7(O); Pulse Ox 96% on R/A; Pain 5/10; bs1 MDM: 03/25 22:38 Patient medically screened. rn 03/26 03:01 Differential diagnosis: Nonspecific abd pain, gastritis, pancreatitis, viral rn gastroenteritis, gastroenteritis, gastroparesis. Data reviewed: vital signs, nurses notes, lab test result(s), radiologic studies, CT scan, and as a result, I will discharge patient. Counseling: I had a detailed discussion with the patient and/or guardian regarding: the historical points, exam findings, and any diagnostic results supporting the discharge/admit diagnosis, lab results, radiology results, the need for outpatient follow up, to return to the emergency department if symptoms worsen or persist or if there are any questions or concerns that arise at home. Response to treatment: the patient's symptoms have markedly improved after treatment, and as a result, I will discharge patient. Special discussion: Based on the patient's Hx, exam, and Dx evaluation, there is no indication for emergent surgery or inpatient Tx. It is understood by the patient/guardian that if the Sx's persist or worsen they need to return immediately for re-evaluation. I discussed with the patient/guardian in detail that at this point there is no indication for admission to the hospital. It is understood, however, that if the symptoms persist or worsen the patient needs to return immediately for re-evaluation. ED course: Pt sleeping, no longer vomiting, will dc home as gsatroparesis. Has dialysis tomorrow, return precautions given and understood.. 03/25 22:39 Order name: Basic Metabolic Panel; Complete Time: 02:37 rn 03/25 22:39 Order name: CBC with Diff; Complete Time: 02:37 rn 03/25 22:39 Order name: Hepatic Function; Complete Time: 02:37 rn 03/25 22:39 Order name: Lipase; Complete Time: 02:37 rn 03/26 00:43 Order name: Abdomen EDMS 03/25 22:39 Order name: IV Saline Lock; Complete Time: 23:27 rn 03/25 22:39 Order name: Labs collected and sent; Complete Time: 23:27 rn 03/25 22:39 Order name: EKG; Complete Time: 22:40 rn 03/25 22:39 Order name: EKG - Nurse/Tech; Complete Time: 00:37 rn Administered Medications: 03/25 23:32 Drug: Zofran 4 mg Route: IVP; Site: right antecubital; bs1 03/26 03:46 Follow up: Response: No adverse reaction jd3 03/25 23:32 Drug: morphine 4 mg Route: IVP; Site: right antecubital; bs1 03/26 03:46 Follow up: Response: No adverse reaction jd3 03/25 23:32 Drug: Reglan 10 mg Route: IVP; Site: right antecubital; bs1 03/26 03:46 Follow up: Response: No adverse reaction jd3 01:40 Drug: cloNIDine 0.3 mg Route: PO; bs1 03:46 Follow up: Response: No adverse reaction jd3 Point of Care Testing: Blood Glucose: 03/25 23:26 Blood Glucose: 189 mg/dL; cb2 Ranges: Critical Glucose Levels:Adult <50 mg/dl or >400 mg/dl <40 mg/dl or >180 mg/dl Disposition: 03/26/18 03:04 Discharged to Home. Impression: Vomiting, Gastroparesis. - Condition is Stable. - Discharge Instructions: Nausea and Vomiting. - Prescriptions for Zofran ODT 4 mg Oral tablet,disintegrating - place 1 tablet by TRANSLINGUAL route every 8 hours As needed; 20 tablet. - Medication Reconciliation Form, Thank You Letter, Antibiotic Education, Prescription Opioid Use form. - Follow up: Private Physician; When: As needed; Reason: Recheck today's complaints, Re-evaluation by your physician. - Problem is new. - Symptoms have improved. Signatures: Dispatcher [employer] EDMS Diamond Reed RN RN fc Nieto, Roman, MD MD rn Davies, Jonathon, RN RN jd3 Salazar, Brittany RN RN bs1 Corrections: (The following items were deleted from the chart) 03/26 00:43 03/25 22:40 Abdomen Pelvis W [email or web address].[email or web address] ordered. [facility] 03/26 03:47 03:04 03/26/2018 03:04 Discharged to Home. Impression: Vomiting; Gastroparesis. jd3 Condition is Stable. Forms are Medication Reconciliation Form, Thank You Letter, Antibiotic Education, Prescription Opioid Use. Follow up: Private Physician; When: As needed; Reason: Recheck today's complaints, Re-evaluation by your physician. Problem is new. Symptoms have improved. rn
--- NOTE | 2018-03-26 03:04 | ER ---
Nurse's Notes [facility] Name: Theresa Mancia Age: 47 yrs Sex: Female : 1970 Arrival Date: 03/25/2018 Time: 22:03 Bed 20 Private MD: Diagnosis: Vomiting;Gastroparesis Presentation: 03/25 22:19 Presenting complaint: Patient states: that she is having abd pain and vomiting. Started fc 3 days ago. Transition of care: patient was not received from another setting of care. Onset of symptoms was March 22, 2018. Risk Assessment: Do you want to hurt yourself or someone else? Patient reports no desire to harm self or others. Care prior to arrival: None. 22:19 Method Of Arrival: Wheelchair fc 22:19 Acuity: MISHEL 3 fc 03/26 01:28 Initial Sepsis Screen: Does the patient meet any 2 criteria? HR > 90 bpm. No. Patient's bs1 initial sepsis screen is negative. Does the patient have a suspected source of infection? No. Patient's initial sepsis screen is negative. Triage Assessment: 03/25 22:26 General: Appears uncomfortable, Behavior is appropriate for age, anxious. Pain: fc Complains of pain in abdomen Pain currently is 10 out of 10 on a pain scale. Quality of pain is described as aching, crampy, Pain began 2-3 days ago. Is continuous. EENT: No deficits noted. Neuro: Level of Consciousness is awake, alert, obeys commands, Oriented to person, place, time, situation. Cardiovascular: No deficits noted. Respiratory: No deficits noted. GI: Reports lower abdominal pain, upper abdominal pain, nausea, vomiting. :. Derm: Skin is pink, warm \T\ dry. Musculoskeletal: Amputation of left AKA. Circulation, motion, and sensation intact. Capillary refill < 3 seconds, Range of motion: intact in all extremities. 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 LMP N/A - Irregular menses bs1 Historical: - Allergies: 03/25 22:24 No Known Allergies; fc - Home Meds: 22:24 Reglan 10 mg Oral tab 1 tab once daily [Active]; Toujeo SoloStar 300 unit/mL (1.5 mL) fc subcutaneous inpn 40 unit daily [Active]; Creon 24,000-76,000 -120,000 unit Oral cpDR 1 caps 3 times per day [Active]; calcitriol 0.25 mcg Oral cap 2 caps once daily [Active]; amlodipine 5 mg tab 1 tab once daily [Active]; Lasix 40 mg Oral tab 3 tabs 2 times per day [Active]; simvastatin 80 mg Oral tab nightly [Active]; omeprazole 20 mg Oral TbEC 20 mg daily [Active]; gabapentin 100 mg Oral cap 1 caps 3 times per day [Active]; Vitamin D 5,000 unit Oral daily [Active]; atenolol 50 mg Oral tab 1 tab 2 times per day [Active]; carvedilol 6.25 mg Oral tab 1 tab 2 times per day [Active]; ferrous sulfate 325 mg (65 mg iron) Oral tab daily [Active]; - PMHx: 22:24 Diabetes - IDDM; Gastroparesis; Hypertension; Renal Disease; Dialysis; fc - PSHx: 22:24 Left AKA; Cholecystectomy; right chest wall jasmyn; fc - Immunization history:: Last tetanus immunization: up to date. - Social history:: Smoking status: Patient/guardian denies using tobacco. - Ebola Screening: : Patient negative for fever greater than or equal to 101.5 degrees Fahrenheit, and additional compatible Ebola Virus Disease symptoms Patient denies exposure to infectious person Patient denies travel to an Ebola-affected area in the 21 days before illness onset. - Family history:: not pertinent. - Hospitalizations: : No recent hospitalization is reported. Screenin/09 01:27 Abuse screen: Denies threats or abuse. Denies injuries from another. Nutritional bs1 screening: No deficits noted. Tuberculosis screening: No symptoms or risk factors identified. Fall Risk No fall in past 12 months (0 pts). No secondary diagnosis (0 pts). IV access (20 points). Ambulatory Aid- Crutches/Cane/Walker (15 pts). Gait- Weak (10 pts.). Mental Status- Oriented to own ability (0 pts). Total Dalton Fall Scale indicates Low Risk Score (25-44 pts). Fall prevention measures have been instituted. Side Rails Up X 2 Family Present and informed to notify staff if they need to leave bedside As available Patient and Family Educated on Fall Prevention Program and strategies. Assessment: 03/25 22:45 General: Appears uncomfortable, ill, Behavior is cooperative, anxious. Pain: Complains bs1 of pain in abdomen. Neuro: Level of Consciousness is awake, alert, obeys commands. Cardiovascular: Denies chest pain, shortness of breath, Heart tones S1 S2 present Capillary refill < 3 seconds Patient's skin is warm and dry. Respiratory: Airway is patent Trachea midline Breath sounds are clear bilaterally. GI: Abdomen is round non-distended, Bowel sounds present X 4 quads. Abdomen is tender to palpation X 4 quads. Reports lower abdominal pain, upper abdominal pain, epigastric pain, nausea, vomiting. : No signs and/or symptoms were reported regarding the genitourinary system. EENT: No signs and/or symptoms were reported regarding the EENT system. Derm: Skin is intact. Musculoskeletal: Amputation of Left BKA. Capillary refill < 3 seconds. 23:50 Reassessment: Oxygen saturation dropped to 88% on room air after morphine 4mg given. 2L bs1 NC applied. 23:50 Reassessment: No changes from previously documented assessment. Patient and/or family bs1 updated on plan of care and expected duration. Pain level reassessed. Patient is alert, oriented x 3, equal unlabored respirations, skin warm/dry/pink. 03/26 00:30 Reassessment: Patient appears in no apparent distress at this time. Patient and/or bs1 family updated on plan of care and expected duration. Pain level reassessed. Patient is alert, oriented x 3, equal unlabored respirations, skin warm/dry/pink. 01:40 Reassessment: Informed Dr Whitmore that patient still c/o pain and nausea/vomiting. bs1 Informed that blood pressure is still in the 200's. Verbal order for clonidine 0.3mg po x1. 02:50 Reassessment: Patient appears in no apparent distress at this time. Patient and/or bs1 family updated on plan of care and expected duration. Pain level reassessed. Patient is alert, oriented x 3, equal unlabored respirations, skin warm/dry/pink. Patients blood pressure decreased, oxygen saturation 100% on 2L NC, 96% on room air. 03:38 Reassessment: Patient appears in no apparent distress at this time. Patient and/or jd3 family updated on plan of care and expected duration. Pain level reassessed. Patient is alert, oriented x 3, equal unlabored respirations, skin warm/dry/pink. pt and family reported understanding of discharge instructions, assisted pt to front of ER in wheelchair. Vital Signs: 03/25 22:24 BP 207 / 98; Pulse 111; Resp 22; Temp 98.5; Pulse Ox 98% on R/A; Pain 10/10; fc 03/26 00:26 BP 205 / 95; Pulse 100; Resp 18; Pulse Ox 92% on R/A; bs1 01:26 BP 195 / 97; Pulse 109; Resp 18 S; Pulse Ox 91% on 2 lpm NC; bs1 02:04 BP 184 / 92; Pulse 102; Resp 20; Pulse Ox 91% on 2 lpm NC; bs1 02:51 BP 182 / 94; Pulse 95; Resp 20; Pulse Ox 100% on 2 lpm NC; bs1 03:30 BP 174 / 88; Pulse 95; Resp 20; Temp 97.7(O); Pulse Ox 96% on R/A; Pain 5/10; bs1 ED Course: 03/25 22:03 Patient arrived in ED. ds1 22:20 Triage completed. fc 22:24 Arm band placed on Patient placed in waiting room, Patient notified of wait time. fc 22:38 Anand Whitmore MD is Attending Physician. rn 23:15 Palak Iglesias, ANSELMO is Primary Nurse. bs1 23:26 Initial lab(s) drawn, by me, sent to lab. Inserted saline lock: 20 gauge in right cb2 antecubital area, using aseptic technique. Blood collected. 03/26 00:36 EKG done, by ED staff. cb2 01:12 Abdomen In Process Unspecified. EDMS 01:27 Patient has correct armband on for positive identification. Bed in low position. Call bs1 light in reach. Side rails up X 1. Pulse ox on. NIBP on. 01:29 No provider procedures requiring assistance completed. bs1 03:40 IV discontinued, intact, bleeding controlled, No redness/swelling at site. Pressure jd3 dressing applied. Administered Medications: 03/25 23:32 Drug: Zofran 4 mg Route: IVP; Site: right antecubital; bs1 03/26 03:46 Follow up: Response: No adverse reaction jd3 03/25 23:32 Drug: morphine 4 mg Route: IVP; Site: right antecubital; bs1 03/26 03:46 Follow up: Response: No adverse reaction jd3 03/25 23:32 Drug: Reglan 10 mg Route: IVP; Site: right antecubital; bs1 03/26 03:46 Follow up: Response: No adverse reaction jd3 01:40 Drug: cloNIDine 0.3 mg Route: PO; bs1 03:46 Follow up: Response: No adverse reaction jd3 Point of Care Testing: Blood Glucose: 03/25 23:26 Blood Glucose: 189 mg/dL; cb2 Ranges: Outcome: 03/26 03:04 Discharge ordered by . rn 03:39 Discharged to home via wheelchair, with family. jd3 03:39 Condition: stable 03:39 Discharge instructions given to patient, family, Instructed on discharge instructions, follow up and referral plans. medication usage, Demonstrated understanding of instructions, follow-up care, medications, Prescriptions given X 1. 03:47 Patient left the ED. jd3 Signatures: Dispatcher [employer] EDMS Diamond Reed RN RN fc Janna Arguelles ds1 Anand Whitmore MD MD rn Bulan, [facility] Kalen Malloy RN RN jd3 Palak Iglesias RN RN bs1 Corrections: (The following items were deleted from the chart) 03/25 22:27 22:24 Pulse 111bpm; Resp 22bpm; Pulse Ox 98% RA; Temp 98.5F; Pain 10/10; fc
[2018-03-26 05:36] VITALS: TEMP 98.5
[2018-03-26 05:41] VITALS: BP 182/94; O2SAT 100
--- NOTE | 2018-03-26 07:55 | EKG ---
Test Date: 2018-03-26 Test Time: 00:30:46 Filler And Trimmer: LISSETTE MEASUREMENT RESULTS: Intervals: Rate: 110 OK: 128 QRSD: 126 QT: 362 QTc: 489 [place]: P: 71 OK: 128 QRS: 119 T: -62 INTERPRETIVE STATEMENTS: Sinus tachycardia Right bundle branch block Left posterior fascicular block Bifascicular block T wave abnormality, consider inferolateral ischemia Abnormal ECG Compared to ECG 02/16/2018 02:50:11 Right bundle-branch block now present Left posterior fascicular block now present Bifascicular block now present Possible ischemia now present Sinus rhythm no longer present Short OK interval no longer present T-wave abnormality still present Electronically Signed On 03-26-18 07:54:51 CDT by Aneesh Toussaint
--- NOTE | 2018-03-26 10:17 | RAD REPORT ---
EXAM DESCRIPTION: CT - Abdomen Pelvis Wo Contrast - 03/26/2018 4:24 am CLINICAL HISTORY: Abdominal pain. COMPARISON: 01/22/2018 TECHNIQUE: CT imaging of the abdomen and pelvis was performed without contrast. Solid organ, bowel a nd vascular assessment is limited due to lack of IV and oral contrast. All CT scans are performed using dose optimization technique as appropriate and may include automated exposure control or mA/KV adjustment according to patient size. FINDINGS: Small left and a small to moderate right pleural effusion is noted. Mild linear subsegment al atelectasis in both lung bases.Trace pericardial fluid. The liver, spleen, pancreas, adrenal glands and kidneys are within normal limits for a limited non-co ntrast examination.Cholecystectomy clips are seen. No bowel obstruction, free air, free fluid or abscess. Small fat containing umbilical hernia. The germaine endix is normal. The osseous structures are within normal limits. IMPRESSION: Small left and a small to moderate right pleural effusion. A limited non-contrast examination was performed as detailed.
== END 2018-03-26 03:47 | disposition home or self-care (01) ==
LOC: ER 22:02
DX: K31.84 Gastroparesis (principal); N28.9 Disorder of kidney and ureter, unspecified; I10 Essential (primary) hypertension; E11.9 Type 2 diabetes mellitus without complications; Z79.4 Long term (current) use of insulin; Z99.2 Dependence on renal dialysis
CPT/HCPCS: 36415; 74176; 80048; 80076; 82962; 83690; 85025; 93005; 96374; 96375; 99284; J2405; J2765

== ENCOUNTER 2018-04-16 10:08 | Inpatient (IN) | payer SELFPAY ==
[2018-04-16] MEDS ORDERED: ONDANSETRON 4 MG/2 ML VIAL ONE (11:07)
[2018-04-16 11:10] LABS: Absolute Lymphocytes (CBC) 1.7 K/uL (0.7-4.9); Absolute Monocytes 0.4 K/uL (0.1-1.3); Absolute Neutrophil 6.5 K/uL (1.8-8.0); Basophils % 0.8 % (0-1.3); Eosinophils % 3.5 % (0-4.4); Hematocrit 27.6 % (36.0-45.0); Lymphocytes % 18.7 % (15.3-44.8); MCH 23.5 pg (27.0-35.0); MCV 78.4 fL (80-100); MPV 8.2 fL (7.6-11.3); Monocytes % 4.4 % (3.3-12.3); RBC Red Blood Cell Count 3.53 M/uL (3.86-4.86)
[2018-04-16 11:38] LABS: Potassium 4.8 mmol/L (3.5-5.1)
[2018-04-16] MEDS ORDERED: ACETAMINOPHEN 500 MG TAB PO PRN (12:20)
--- NOTE | 2018-04-16 12:29 | ER ---
Nurse's Notes [facility] Name: Theresa Mancia Age: 47 yrs Sex: Female : 1970 Arrival Date: 04/16/2018 Time: 10:10 Bed 8 Private MD: None, None Diagnosis: Pulmonary edema;End stage renal disease Presentation: 04/16 10:24 Presenting complaint: Patient states: Shortness of breath since last night, reports aj1 trouble sleeping due to shortness of breath. States that she last had dialysis on April 05 because she is having trouble paying for dialysis. Reports cough, denies fever. Denies pain. Transition of care: patient was not received from another setting of care. Onset of symptoms was April 15, 2018. Risk Assessment: Do you want to hurt yourself or someone else? Patient reports no desire to harm self or others. Initial Sepsis Screen: Does the patient meet any 2 criteria? HR > 90 bpm. No. Patient's initial sepsis screen is negative. Does the patient have a suspected source of infection? No. Patient's initial sepsis screen is negative. Care prior to arrival: None. 10:24 Method Of Arrival: Wheelchair aj1 10:24 Acuity: MISHEL 3 aj1 Triage Assessment: 10:29 General: Appears uncomfortable, Behavior is cooperative, anxious. Pain: Denies pain. aj1 Respiratory: Reports shortness of breath Onset: The symptoms/episode began/occurred yesterday, the patient has mild shortness of breath. 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 N/A - Post-menopause aj1 Historical: - Allergies: 10:29 No Known Allergies; aj1 - Home Meds: 10:29 amlodipine 5 mg tab 1 tab once daily [Active]; atenolol 50 mg Oral tab 1 tab 2 times aj1 per day [Active]; calcitriol 0.25 mcg Oral cap 2 caps once daily [Active]; carvedilol 6.25 mg Oral tab 1 tab 2 times per day [Active]; Creon 24,000-76,000 -120,000 unit Oral cpDR 1 caps 3 times per day [Active]; ferrous sulfate 325 mg (65 mg iron) Oral tab daily [Active]; gabapentin 100 mg Oral cap 1 caps 3 times per day [Active]; Lasix 40 mg Oral tab 3 tabs 2 times per day [Active]; omeprazole 20 mg Oral TbEC 20 mg daily [Active]; Reglan 10 mg Oral tab 1 tab once daily [Active]; simvastatin 80 mg Oral tab nightly [Active]; Toujeo SoloStar 300 unit/mL (1.5 mL) subcutaneous inpn 40 unit daily [Active]; Vitamin D 5,000 unit Oral daily [Active]; - PMHx: 10:29 Diabetes - IDDM; Dialysis; Gastroparesis; Hypertension; Renal Disease; aj1 - PSHx: 10:29 Knee surgery; aj1 - Immunization history:: Flu vaccine is up to date. - Social history:: Smoking status: Patient/guardian denies using tobacco. - Ebola Screening: : Patient denies travel to an Ebola-affected area in the 21 days before illness onset. - Family history:: not pertinent. - Hospitalizations: : No recent hospitalization is reported. Screenin:00 Abuse screen: Denies threats or abuse. Denies injuries from another. Nutritional sv screening: No deficits noted. Tuberculosis screening: No symptoms or risk factors identified. Fall Risk None identified. Assessment: 10:45 General: Appears in no apparent distress. uncomfortable, obese, Behavior is sv cooperative, appropriate for age. Pain: Denies pain. Neuro: Level of Consciousness is awake, alert, obeys commands, Oriented to person, place, time, situation, Moves all extremities. Speech is normal. Cardiovascular: Patient's skin is warm and dry. Rhythm is sinus rhythm Dialysis shunt: in the anterior aspect of right upper chest. Respiratory: Reports shortness of breath at rest on exertion cough that is non-productive, Airway is patent Respiratory effort is even, unlabored, Respiratory pattern is symmetrical, tachypnea Breath sounds with crackles in left posterior lower lobe and right posterior lower lobe. Derm: Skin is pink, warm \T\ dry. Musculoskeletal: Amputation of left fajardo, anterior aspect of left ankle and dorsum of left foot. 10:45 General: Reports last HD 4 days ago. sv 12:10 Reassessment: Patient appears in no apparent distress at this time. Patient and/or sv family updated on plan of care and expected duration. Pain level reassessed. Patient is alert, oriented x 3, equal unlabored respirations, skin warm/dry/pink. 13:18 Reassessment: Nurse to call back for report. sv 13:41 Reassessment: Patient appears in no apparent distress at this time. Patient and/or sv family updated on plan of care and expected duration. Pain level reassessed. Patient is alert, oriented x 3, equal unlabored respirations, skin warm/dry/pink. Vital Signs: 10:29 BP 207 / 104; Pulse 111; Resp 20; Temp 98.6; Pulse Ox 95% on R/A; Weight 90.72 kg (R); aj1 Height 5 ft. 0 in. (152.40 cm) (R); Pain 0/10; 10:45 Pulse Ox 87% on R/A; sv 11:42 BP 198 / 100; Pulse 108; Resp 21; Pulse Ox 99% on 2 lpm NC; dh3 12:13 BP 213 / 124; Pulse 101; Resp 22; Pulse Ox 99% on 2 lpm NC; dh3 13:00 BP 208 / 105; Pulse 99; Resp 22; Pulse Ox 100% on 2 lpm NC; sv 10:29 Body Mass Index 39.06 (90.72 kg, 152.40 cm) aj1 10:45 Pt placed on O2 \T\ 2L per NC. O2 sat up to 100%. sv ED Course: 10:10 Patient arrived in ED. sb2 10:11 None, None is Private Physician. sb2 10:28 Triage completed. aj1 10:29 Arm band placed on Patient placed in an exam room. aj1 10:36 Anand Whitmore MD is Attending Physician. rn 10:36 Tiesha Vivar RN is Primary Nurse. sv 10:50 Initial lab(s) drawn, by me, sent to lab. Inserted saline lock: 20 gauge in right sv antecubital area, using aseptic technique. Blood collected. Flushed right antecubital with 5 ml normal saline. 11:00 Patient has correct armband on for positive identification. Bed in low position. Call sv light in reach. Side rails up X2. Adult w/ patient. Pulse ox on. NIBP on. Door closed. Head of bed elevated. 11:12 air sampling and monitoring on. sv 11:44 X-ray completed. Portable x-ray completed in exam room. Patient tolerated procedure jw2 well. 11:45 XRAY Chest (1 view) In Process Unspecified. EDMS 12:28 Prezas, David, DO is Hospitalizing Provider. rn 13:41 No provider procedures requiring assistance completed. Patient admitted, IV remains in sv place. intact. Administered Medications: 11:10 Drug: Zofran 4 mg Route: IVP; Site: right antecubital; sv 11:30 Follow up: Response: No adverse reaction sv Outcome: 12:29 Decision to Hospitalize by Provider. rn 13:40 Admitted to Tele accompanied by tech, family with patient, via stretcher, room 218, sv with oxygen, with chart, Report called to Laxmi BRIONES 13:40 Condition: stable 13:40 Instructed on the need for admit. 13:54 Patient left the ED. sv Signatures: Dispatcher [employer] EDMS Kristy Echols RN RN aj1 Tiesha Vivar RN RN Anand Whitmore MD MD rn Wailes, Jenni jw2 Elda Crooks 3 Petrona Goldstein sb2 Corrections: (The following items were deleted from the chart) 13:23 10:45 Respiratory: Reports shortness of breath at rest on exertion cough that is sv non-productive, Airway is patent Respiratory effort is even, unlabored, Respiratory pattern is symmetrical, tachypnea sv 13:24 12:37 BP 209 / 105; sv sv 14:06 10:45 Cardiovascular: Patient's skin is warm and dry. Rhythm is sinus rhythm sv sv
--- NOTE | 2018-04-16 12:29 | EDPHYS ---
Physician Documentation [facility] Name: Theresa Mancia Age: 47 yrs Sex: Female : 1970 Arrival Date: 04/16/2018 Time: 10:10 Bed 8 Private MD: None, None ED Physician Anand Whitmore HPI: 04/16 10:59 This 47 yrs old Female presents to ER via Wheelchair with complaints of rn Shortness Of Breath. 10:59 The patient has shortness of breath at rest. Onset: The symptoms/episode began/occurred rn 2 day(s) ago. Duration: The symptoms are continuous. The patient's shortness of breath is aggravated by exertion, light activity, supine position. Severity of symptoms: At their worst the symptoms were moderate in the emergency department the symptoms are unchanged. The patient has experienced similar episodes in the past. REports unable to afford dialysis, last dialysis 4 days ago, does not get scheduled dialysis, reports sob, worse with exertion and laying down. . 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 - Post-menopause aj1 Historical: - Allergies: 10:29 No Known Allergies; aj1 - Home Meds: 10:29 amlodipine 5 mg tab 1 tab once daily [Active]; atenolol 50 mg Oral tab 1 tab 2 times aj1 per day [Active]; calcitriol 0.25 mcg Oral cap 2 caps once daily [Active]; carvedilol 6.25 mg Oral tab 1 tab 2 times per day [Active]; Creon 24,000-76,000 -120,000 unit Oral cpDR 1 caps 3 times per day [Active]; ferrous sulfate 325 mg (65 mg iron) Oral tab daily [Active]; gabapentin 100 mg Oral cap 1 caps 3 times per day [Active]; Lasix 40 mg Oral tab 3 tabs 2 times per day [Active]; omeprazole 20 mg Oral TbEC 20 mg daily [Active]; Reglan 10 mg Oral tab 1 tab once daily [Active]; simvastatin 80 mg Oral tab nightly [Active]; Toujeo SoloStar 300 unit/mL (1.5 mL) subcutaneous inpn 40 unit daily [Active]; Vitamin D 5,000 unit Oral daily [Active]; - PMHx: 10:29 Diabetes - IDDM; Dialysis; Gastroparesis; Hypertension; Renal Disease; aj1 - PSHx: 10:29 Knee surgery; aj1 - Immunization history:: Flu vaccine is up to date. - Social history:: Smoking status: Patient/guardian denies using tobacco. - Ebola Screening: : Patient denies travel to an Ebola-affected area in the 21 days before illness onset. - Family history:: not pertinent. - Hospitalizations: : No recent hospitalization is reported. ROS: 10:59 Constitutional: Negative for fever, chills, and weight loss, Eyes: Negative for injury, rn pain, redness, and discharge, Neck: Negative for injury, pain, and swelling, Cardiovascular: Negative for chest pain, palpitations, + edema Respiratory: + sob Abdomen/GI: Negative for abdominal pain, nausea, vomiting, diarrhea, and constipation, MS/Extremity: Negative for injury and deformity, Skin: Negative for injury, rash, and discoloration, Neuro: Negative for headache, weakness, numbness, tingling, and seizure. Exam: 10:59 Constitutional: This is a well developed, well nourished patient who is awake, alert, rn appears anxious and tachypneic Head/Face: Normocephalic, atraumatic. Eyes: Pupils equal round and reactive to light, extra-ocular motions intact. Lids and lashes normal. Conjunctiva and sclera are non-icteric and not injected. Cornea within normal limits. Periorbital areas with no swelling, redness, or edema. Neck: Trachea midline,No Meningismus. Chest/axilla: + right sided dialysis catheter with date changed 04/12/18 Cardiovascular: tachcyardic, regular, no murmur Respiratory: + mild tachypnea, no retractions, bibasilar crackles Abdomen/GI: Soft, non-tender, with normal bowel sounds. No distension or tympany. No guarding or rebound. No evidence of tenderness throughout. MS/ Extremity: Pulses equal, no cyanosis. Neurovascular intact. Full, normal range of motion. Equal circumference. Neuro: Awake and alert, GCS 15, oriented to person, place, time, and situation. Cranial nerves II-XII grossly intact. Motor strength 5/5 in all extremities. Sensory grossly intact. Vital Signs: 10:29 BP 207 / 104; Pulse 111; Resp 20; Temp 98.6; Pulse Ox 95% on R/A; Weight 90.72 kg (R); aj1 Height 5 ft. 0 in. (152.40 cm) (R); Pain 0/10; 10:45 Pulse Ox 87% on R/A; sv 11:42 BP 198 / 100; Pulse 108; Resp 21; Pulse Ox 99% on 2 lpm NC; dh3 12:13 BP 213 / 124; Pulse 101; Resp 22; Pulse Ox 99% on 2 lpm NC; dh3 13:00 BP 208 / 105; Pulse 99; Resp 22; Pulse Ox 100% on 2 lpm NC; sv 10:29 Body Mass Index 39.06 (90.72 kg, 152.40 cm) aj1 10:45 Pt placed on O2 \T\ 2L per NC. O2 sat up to 100%. sv MDM: 10:36 Patient medically screened. rn 12:25 ED course: Paged dr nicole for hemodialysis \T\ 1225. . rn 12:25 Differential diagnosis: Anemia pulmonary edema, ESRD. Data reviewed: vital signs, rn nurses notes, lab test result(s), EKG, radiologic studies, and as a result, I will admit patient. Counseling: I had a detailed discussion with the patient and/or guardian regarding: the historical points, exam findings, and any diagnostic results supporting the discharge/admit diagnosis, lab results, radiology results, the need for further work-up and treatment in the hospital. Response to treatment: the patient's symptoms have mildly improved after treatment. Admission orders: after a detailed discussion of the patient's condition and case, the admit orders are written by me. 12:28 ED course: Spoke with Dr. Marcum, is calling dialysis nurse in to dialyze patient. . rn 04/16 10:45 Order name: CBC with Diff; Complete Time: 11:49 rn 04/16 10:45 Order name: Basic Metabolic Panel; Complete Time: 11:49 rn 04/16 10:45 Order name: PROBNP; Complete Time: 11:49 rn 04/16 12:25 Order name: Urinalysis EDPR 04/16 12:25 Order name: Basic Metabolic Panel EDPR 04/16 12:25 Order name: Basic Metabolic Panel EDMS 04/16 12:25 Order name: Basic Metabolic Panel EDPR 04/16 12:25 Order name: Basic Metabolic Panel EDPR 04/16 12:25 Order name: CBC with Automated Diff EDMS 04/16 12:25 Order name: CBC with Automated Diff EDMS 04/16 12:25 Order name: CBC with Automated Diff EDMS 04/16 12:25 Order name: CBC with Automated Diff EDMS 04/16 12:25 Order name: Magnesium EDMS 04/16 12:25 Order name: Magnesium EDMS 04/16 10:45 Order name: IV Start; Complete Time: 11:00 rn 04/16 10:45 Order name: EKG; Complete Time: 10:45 rn 04/16 10:45 Order name: EKG - Nurse/Tech; Complete Time: 11:12 rn 04/16 10:45 Order name: XRAY Chest (1 view) rn 04/16 12:25 Order name: CONS Physician Consult EDMS 04/16 12:25 Order name: Respiratory Therapy Consult EDMS 04/16 12:25 Order name: Consistent Carb (ADA) 2000 Sen EDMS 04/16 12:25 Order name: Magnesium EDMS 04/16 12:25 Order name: Magnesium EDMS Administered Medications: 11:10 Drug: Zofran 4 mg Route: IVP; Site: right antecubital; sv 11:30 Follow up: Response: No adverse reaction sv Disposition: 04/16/18 12:29 Hospitalization ordered by David Ladd for Inpatient Admission. Preliminary diagnosis are Pulmonary edema, End stage renal disease. - Bed requested for Telemetry/MedSurg (Inpatient). - Status is Inpatient Admission. sv - Condition is Stable. - Problem is new. - Symptoms have improved. UTI on Admission? No Signatures: Dispatcher [employer] [facility] Kristy Echols RN RN aj1 Tiesha Vivar RN RN sv Anand Whitmore MD MD rn Martinez, Eric em1 Corrections: (The following items were deleted from the chart) 13:13 12:29 Hospitalization Ordered by David Ladd DO for Inpatient Admission. Preliminary em1 diagnosis is Pulmonary edema; End stage renal disease. Bed requested for Telemetry/MedSurg (Inpatient). Status is Inpatient Admission. Condition is Stable. Problem is new. Symptoms have improved. UTI on Admission? No. rn 13:54 13:13 04/16/2018 12:29 Hospitalization Ordered by David Ladd DO for Inpatient sv Admission. Preliminary diagnosis is Pulmonary edema; End stage renal disease. Bed requested for Telemetry/MedSurg (Inpatient). Status is Inpatient Admission. Condition is Stable. Problem is new. Symptoms have improved. UTI on Admission? No. em1
[2018-04-16] MEDS ORDERED: NA CHLORIDE 0.9% 1,000 ML IV PRN (12:40)
[2018-04-16] MEDS ORDERED: MANNITOL 25% 12.5 GM/50 ML VIAL IV PRN (12:40)
--- NOTE | 2018-04-16 12:42 | RAD REPORT ---
EXAM DESCRIPTION: RAD - Chest Single View - 04/16/2018 11:45 am CLINICAL HISTORY: Shortness of breath COMPARISON: February 12 TECHNIQUE: AP portable chest image was obtained 1128 hours . FINDINGS: Lung volumes are low. Dialysis catheter is in place. Heart, vasculature and lung markings are all prominent. This is in part due to body habitus and shallow inspiration. However, mild failure or volume overload suspected. Heart and vasculature are normal. No measurable pleural effusion and n o pneumothorax. No gross bony abnormality seen. No acute aortic findings suspected. IMPRESSION: Mild failure or volume overload accentuated by shallow inspiration.
[2018-04-16] MEDS ORDERED: ALBUMIN HUMAN 25% 50 ML IV SCH (13:00)
--- NOTE | 2018-04-16 13:00 | P.HP ---
Certification for Inpatient Patient admitted to: Inpatient With expected LOS: >2 Midnights Patient will require the following post-hospital care: None Practitioner: I am a practitioner with admitting privileges, knowledge of patient current condition, hospital course, and medical plan of care. Services: Services provided to patient in accordance with Admission requirements found in Title 42 Section 412.3 of the Code of Federal Regulations Patient History Date of Service: 04/16/18 Primary Care Provider: None Reason for admission: SOB History of Present Illness: 47 yo HF with ESRD who is unfunded and not a [place] citizen came to the ER with shortness of breath. She reports going to multiple ERs to get emergent dialysis since she is not a [place] citizen and unfunded. Today she started with SOB. Some edema to the lower extremity is noted. No chest pain. Some back pain is noted. Her last ER hospitalization for emergent dialysis was last Wednesday at [facility]. She is normally seen at [facility]. In the ER she was evaluated. Potassium was normal. CXR showed mild failure. She is chronic anemic. BS was elevated. GFR is 7. She will be admitted for emergent dialysis. When I saw the patient she was not in respiratory distress. BP elevated. She has HTN, DM, Hyperlipidemia, DM Neuropathy, Anemia of chronic disease and GERD/ DM Gastroparesis. Allergies No Known Allergies Allergy (Verified 12/20/17 01:04) Home medications list reviewed: Yes Home Medications: Amlodipine [Norvasc*] 5 mg PO DAILY 02/10/18 Carvedilol 6.25 mg PO BID 02/10/18 Cholecalciferol (Vitamin D3) [Vitamin D 5,000 IU Cap*] 1 tab PO DAILY 02/10/18 Furosemide [Lasix] 3 tab PO BID 02/10/18 Gabapentin [Neurontin*] 100 mg PO TID 02/10/18 Insulin Glargine,Hum.rec.anlog [Efra Martinez] 40 unit SQ DAILY 02/10/18 Lipase/Protease/Amylase [German Samuels 12,000 Units Capsule] 24,000 unit PO TID 02/10 Metoclopramide HCl [Reglan] 10 mg PO AC 02/10/18 Omeprazole 20 mg PO DAILY 02/10/18 Simvastatin 80 mg PO BEDTIME 02/10/18 Calcitrol [Rocaltrol*] 0.5 mcg PO DAILY #60 cap 02/13/18 Ferrous Sulfate [Ferrous Sulfate*] 325 mg PO DAILY #30 tab 02/13/18 Sevelamer Carbonate [Renvela*] 1,600 mg PO TIDWM #90 tablet 02/13/18 - Past Medical/Surgical History Diabetic: Yes -: DM Type 2 -: HTN -: Hyperlipidemia -: ESRD, Unfunded -: GERD -: Chronic pancreatitis -: DM Gastroparesis -: Left AKA -: Anemia of chronic disease -: DM Neuropathy -: Choleycystectomy -: amp left pinky toe by Dr. Barney jul 2015 -: PICC line -: L ANTONIOA Oct 2015 Psychosocial/ Personal History: , 2 Children. She is unfunded and not a [place] citizen - Family History Mother -: Lung disease Father -: Heart disease - Social History Smoking Status: Never smoker Alcohol use: No CD- Drugs: No Caffeine use: Yes Place of Residence: Home Review of Systems General: As per HPI Eyes: Unremarkable ENT: Unremarkable Respiratory: Shortness of Breath, SOB with Excertion, As per HPI Cardiovascular: Edema, As per HPI Gastrointestinal: Unremarkable Genitourinary: Unremarkable Musculoskeletal: Back Pain, Pedal edema, As per HPI Integumentary: Unremarkable Neurological: Unremarkable Lymphatics: Unremarkable Physical Examination - Physical Exam General: Alert, In no apparent distress, Oriented x3, Cooperative HEENT: Atraumatic, Normocephalic, Mucous membr. moist/pink Neck: Supple, No Thyromegaly Respiratory: Crackles/rales (mild bilaterally) Cardiovascular: Normal pulses, Regular rate/rhythm Gastrointestinal: Normal bowel sounds, Soft and benign, Non-distended, No tenderness, No masses, No rebound, No guarding Musculoskeletal: No erythema, No tenderness, No warmth Integumentary: No erythema, No warmth, No cyanosis, Tenderness/swelling (1-2 plus edema to the lower ext. Left AKA) Neurological: Normal speech, Normal strength at 5/5 x4 extr, Normal tone, Normal affect - Studies Laboratory Data (last 24 hrs) 04/16/18 10:50: WBC 9.0, Hgb 8.3 L, Hct 27.6 L, Plt Count 326 04/16/18 10:50: Sodium 140, Potassium 4.8, BUN 24 H, Creatinine 6.10 H*, Glucose 247 H Assessment and Plan - Problems (Diagnosis) (1) Shortness of breath Current Visit: Yes Status: Acute Plan: Patient is unfunded and not a [place] citizen. She goes to multiple ERs to get dialysis. Will need emergent dialysis. She will be admitted. Nephrology consulted. ER spoke to Nephrology. Dialysis to be done. Will provide oxygen. Will continue with other medication. (2) Pulmonary edema Current Visit: Yes Status: Acute Plan: as above Qualifiers: Chronicity: acute Qualified Code(s): J81.0 - Acute pulmonary edema (3) Hyperlipidemia Current Visit: Yes Status: Chronic Plan: Continue with medication Qualifiers: Hyperlipidemia type: unspecified Qualified Code(s): E78.5 - Hyperlipidemia , unspecified (4) Anemia Current Visit: No Status: Chronic Plan: Will monitor. Will restart her Iron Qualifiers: Anemia type: due to chronic kidney disease Chronic kidney disease stage: on chronic dialysis Qualified Code(s): N18.6 - End stage renal disease; D63.1 - Anemia in chronic kidney disease; Z99.2 - Dependence on renal dialysis (5) End stage renal disease Onset Date: 12/20/17 Current Visit: No Status: Chronic Plan: Nephrology consulted. Will get dialysis today. Anticipate Discharge tomorrow if much improved. (6) Lower extremity edema Onset Date: 12/20/17 Current Visit: No Status: Acute Plan: As above. Will add Lasix. (7) Diabetes mellitus Current Visit: No Status: Chronic Plan: Will continue with sliding scale. Will check A1c. 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 Qualifiers: Diabetes mellitus type: type 2 Diabetes mellitus complication detail: diabetic polyneuropathy Qualified Code(s): E11.42 - Type 2 diabetes mellitus with diabetic polyneuropathy (9) GERD (gastroesophageal reflux disease) Current Visit: No Status: Chronic Plan: Continue with her PPI Qualifiers: Esophagitis presence: esophagitis presence not specified Qualified Code(s) : K21.9 - Gastro-esophageal reflux disease without esophagitis (10) Gastroparesis Onset Date: 09/26/15 Current Visit: No Status: Chronic Plan: Stable. Will monitor. May need Reglan. She reports that this was stopped recently. (11) Hypertension Onset Date: 12/20/17 Current Visit: No Status: Chronic Plan: Continue with her medication. Qualifiers: Hypertension type: essential hypertension Qualified Code(s): I10 - Essential (primary) hypertension Discharge Plan: Home Plan to discharge in: 48 Hours - Advance Directives Does patient have a Living Will: No Does patient have a Durable POA for Healthcare: No - Code Status/Comfort Care Code Status Assessed: Yes (Full code) Time Spent Managing Pts Care (In Minutes): 55
[2018-04-16] MEDS: ONDANSETRON 4 MG/2 ML VIAL IV PRN (14:07)
[2018-04-16] MEDS: GABAPENTIN 100 MG CAP PO SCH ×2 (14:31→21:56)
[2018-04-16] MEDS: EPOETIN ALFA 10,000 UNIT/ML VIAL IV SCH (15:45)
[2018-04-16] MEDS ORDERED: PNEUMOCOCCAL VACCINE 0.5 ML IMVAC ONE (16:00)
[2018-04-16] MEDS: INSULIN -REGULAR HUMAN 50 UNIT/0.5 ML ML SQ SCH ×2 (16:30→21:00)
[2018-04-16] MEDS: AMYLASE/LIPASE/PROTEASE CAP PO SCH ×2 (16:30→21:00)
[2018-04-16] MEDS: FUROSEMIDE 40 MG TABLET PO SCH (17:00)
[2018-04-16 17:32] VITALS: BMI 5477.8
[2018-04-16] MEDS ORDERED: ATORVASTATIN 20 MG TAB PO SCH (21:00)
[2018-04-16] MEDS ORDERED: CARVEDILOL 6.25 MG TAB PO SCH (21:00)
[2018-04-16] MEDS: FERROUS SULFATE 325 MG TAB PO SCH (21:55)
[2018-04-16] MEDS: TRAMADOL HCL 50 MG TAB PO PRN (21:56)
[2018-04-16] MEDS: CARVEDILOL 6.25 MG TAB PO SCH (22:21)
--- NOTE | 2018-04-16 22:59 | EKG ---
Test Date: 2018-04-16 Test Time: 11:09:09 Principal Technical Writer: BRITT MEASUREMENT RESULTS: Intervals: Rate: 111 TX: 128 QRSD: 118 QT: 354 QTc: 481 [place]: P: 24 TX: 128 QRS: 113 T: -23 INTERPRETIVE STATEMENTS: Sinus tachycardia Low voltage QRS Right bundle branch block Abnormal ECG Compared to ECG 03/26/2018 00:30:46 Low QRS voltage now present Electronically Signed On 04-16-18 22:58:45 CDT by Joshua Allen
[2018-04-17 00:16] LABS: Urine Appearance CLEAR; Urine Bilirubin NEGATIVE (NEG); Urine Blood TRACE (NEG); Urine Color YELLOW; Urine Glucose 2+ (NEG); Urine Protein 3+ (NEG); Urine Specific Gravity >=1.030 (1.005-1.030); Urine Urobilinogen 0.2 mg/dL (0.2-1.0); Urine pH 7.5 (5.0-7.0)
[2018-04-17 00:24] LABS: Urine Microscopic Reflex ORDER UMIC
[2018-04-17 01:06] LABS: Urine Amorphous Sediment TRACE /HPF (NONE SEEN); Urine Bacteria <20 /HPF (<20); Urine Culture Reflex Order NOT NEEDED; Urine Mucus LIGHT /HPF (NONE SEEN); Urine RBC <5 /HPF (NONE SEEN)
[2018-04-17] MEDS: HYDROCODONE/APAP 7.5/325 MG TAB PO PRN ×3 (02:04→14:00)
[2018-04-17] MEDS: ONDANSETRON 4 MG/2 ML VIAL IV PRN ×3 (02:05→14:49)
[2018-04-17 05:38] LABS: Hematocrit 24.1 % (36.0-45.0); MCH 23.9 pg (27.0-35.0); MCV 78.4 fL (80-100); MPV 8.5 fL (7.6-11.3); RBC Red Blood Cell Count 3.08 M/uL (3.86-4.86)
[2018-04-17 05:39] LABS: Absolute Lymphocytes (CBC) 1.3 K/uL (0.7-4.9); Absolute Monocytes 0.4 K/uL (0.1-1.3); Absolute Neutrophil 5.3 K/uL (1.8-8.0); Basophils % 1.2 % (0-1.3); Eosinophils % 1.8 % (0-4.4); Lymphocytes % 18.6 % (15.3-44.8)
[2018-04-17 05:42] LABS: Magnesium 2.1 mg/dL (1.8-2.4); Potassium 4.7 mmol/L (3.5-5.1)
[2018-04-17] MEDS ORDERED: PANTOPRAZOLE 40MG TABLET PO SCH (06:30)
[2018-04-17] MEDS: INSULIN -REGULAR HUMAN 50 UNIT/0.5 ML ML SQ SCH (07:30)
[2018-04-17] MEDS: CARVEDILOL 6.25 MG TAB PO SCH (08:27)
[2018-04-17] MEDS: FUROSEMIDE 40 MG TABLET PO SCH (08:29)
[2018-04-17] MEDS: AMYLASE/LIPASE/PROTEASE CAP PO SCH (08:29)
[2018-04-17] MEDS: FERROUS SULFATE 325 MG TAB PO SCH (08:29)
[2018-04-17] MEDS: GABAPENTIN 100 MG CAP PO SCH (08:29)
[2018-04-17] MEDS ORDERED: ENOXAPARIN 30 MG/0.3 ML SQ SCH (09:00)
[2018-04-17] MEDS ORDERED: ASPIRIN EC 81 MG TAB PO SCH (09:00)
[2018-04-17] MEDS ORDERED: CALCITROL 0.25 MCG CAP PO SCH (09:00)
[2018-04-17] MEDS ORDERED: AMLODIPINE 5 MG TAB PO SCH ×2 (09:00)
[2018-04-17 09:15] VITALS: O2SAT 94
[2018-04-17] MEDS: EPOETIN ALFA 10,000 UNIT/ML VIAL IV SCH (10:37)
[2018-04-17] MEDS: TRAMADOL HCL 50 MG TAB PO PRN (12:54)
--- NOTE | 2018-04-17 13:22 | P.DS ---
Admission Date: 04/16/18 Discharge Date: 04/17/18 Primary Care Provider: [facility], Dr. Graham in the past Disposition: ROUTINE DISCHARGE Discharge Condition: GOOD Reason for Admission: SOB Consultations: Nephrology-Dr. Marcum - Problems (1) Shortness of breath Current Visit: Yes Status: Acute (2) Pulmonary edema Current Visit: Yes Status: Acute Qualifiers: Chronicity: acute Qualified Code(s): J81.0 - Acute pulmonary edema (3) Hyperlipidemia Current Visit: Yes Status: Chronic Qualifiers: Hyperlipidemia type: unspecified Qualified Code(s): E78.5 - Hyperlipidemia , unspecified (4) Anemia Current Visit: No Status: Chronic Qualifiers: Anemia type: due to chronic kidney disease Chronic kidney disease stage: on chronic dialysis Qualified Code(s): N18.6 - End stage renal disease; D63.1 - Anemia in chronic kidney disease; Z99.2 - Dependence on renal dialysis (5) End stage renal disease Onset Date: 12/20/17 Current Visit: No Status: Chronic (6) Lower extremity edema Onset Date: 12/20/17 Current Visit: No Status: Acute (7) Diabetes mellitus Current Visit: No Status: Chronic Qualifiers: Diabetes mellitus type: type 2 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 insulin use: with extermination supervisor use Diabetes mellitus complication status: with kidney complications Diabetes mellitus complication detail: with chronic kidney disease Chronic kidney disease stage: on chronic dialysis Qualified Code(s) : E11.22 - Type 2 diabetes mellitus with diabetic chronic kidney disease; N18.6 - End stage renal disease; 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.4 - 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; Z99.2 - Dependence on renal dialysis (8) Diabetic neuropathy Onset Date: 12/20/17 Current Visit: No Status: Chronic Qualifiers: Diabetes mellitus type: type 2 Diabetes mellitus complication detail: diabetic polyneuropathy Qualified Code(s): E11.42 - Type 2 diabetes mellitus with diabetic polyneuropathy (9) GERD (gastroesophageal reflux disease) Current Visit: No Status: Chronic Qualifiers: Esophagitis presence: esophagitis presence not specified Qualified Code(s) : K21.9 - Gastro-esophageal reflux disease without esophagitis (10) Gastroparesis Onset Date: 09/26/15 Current Visit: No Status: Chronic (11) Hypertension Onset Date: 12/20/17 Current Visit: No Status: Chronic Qualifiers: Hypertension type: essential hypertension Qualified Code(s): I10 - Essential (primary) hypertension Brief History of Present Illness: 47 yo HF with ESRD who is unfunded and not a [place] citizen came to the ER with shortness of breath. She reports going to multiple ERs to get emergent dialysis since she is not a [place] citizen and unfunded. Today she started with SOB. Some edema to the lower extremity is noted. No chest pain. Some back pain is noted. Her last ER hospitalization for emergent dialysis was last Wednesday at [facility]. She is normally seen at [facility]. In the ER she was evaluated. Potassium was normal. CXR showed mild failure. She is chronic anemic. BS was elevated. GFR is 7. She will be admitted for emergent dialysis. When I saw the patient she was not in respiratory distress. BP elevated. She has HTN, DM, Hyperlipidemia, DM Neuropathy, Anemia of chronic disease and GERD/ DM Gastroparesis. Hospital Course: Patient presented with shortness of breath. Patient found to have pulmonary edema secondary to end-stage renal disease. Patient is undocumented and unfunded. Patient requires dialysis on as needed basis. She goes to several hospitals to get dialysis when needed. She primarily goes to [facility]/ [place]. Patient required dialysis during his stay. Nephrology consulted. Patient received dialysis x2. At discharge she will need to follow up with her PCP or nephrology as an outpatient to monitor her renal function. Patient may require future hospitalizations for dialysis. This can be managed by her PCP or nephrology. Patient has hypertension. Medications adjusted due her stay. At discharge she will continue with Norvasc 5 mg 1 pill twice daily and carvedilol 6.25 mg 1 pill twice daily. Recommendation is to maintain blood pressures less 150/80. Further adjustment can be done by her PCP. Patient has diabetes. Patient will continue with insulin therapy including Teojeo 40 units subcu daily. Recommendation is to maintain blood sugars less 140 fasting and less than 200 after meals. Further adjustment can be done by her PCP. Patient has hyperlipidemia. Patient will continue with Zocor 80 mg daily. Patient has diabetic gastroparesis with GERD. Patient will continue with Prilosec 20 mg daily. Recommendation is for the patient follow up with GI as an outpatient to further monitor. Patient has diabetic neuropathy. Patient continue with gabapentin 100 mg 1 pill 3 times a day. ER reports pain seeking behavior. Will need to monitor for abuse of chronic pain medications. Recommendation is to continue with gabapentin and adjust. Recommend not giving IV pain medication or hydrocodone due to her gastroparesis. Patient has anemia of chronic disease. Patient continue with iron 325 mg 1 pill once daily. Patient will continue her medication Calcitrol, Renvela. Patient also takes Lasix 40 mg 3 pills twice daily. Patient will need to continue with her pancreatic enzyme medication. She is to continue a 1500 cc per day fluid restriction. She is to monitor her weight daily. Recommendation is to follow up with nephrology as an outpatient. Vital Signs/Physical Exam: Temp Pulse Resp BP Pulse Ox 97.2 F 98 H 20 194/92 H 95 04/17/18 08:00 04/17/18 08:28 04/17/18 08:00 04/17/18 08:28 04/17/18 08:00 General: Alert, In no apparent distress, Oriented x3, Cooperative HEENT: Atraumatic Neck: Supple Respiratory: Clear to auscultation bilaterally, Normal air movement Cardiovascular: Normal pulses, Regular rate/rhythm Gastrointestinal: Normal bowel sounds, Soft and benign, Non-distended, No masses , No rebound, No guarding Musculoskeletal: No tenderness, No warmth Integumentary: No erythema, No warmth, No cyanosis Neurological: Normal speech, Normal strength at 5/5 x4 extr, Normal tone, Normal affect Lymphatics: No axilla or inguinal lymphadenopathy Laboratory Data at Discharge: WBC 7.2 K/uL (4.3-10.9) D 04/17/18 04:27 Hgb 8.0 g/dL (12.0-15.0) L 04/17/18 08:38 Hct 27.0 % (36.0-45.0) L 04/17/18 08:38 Plt Count 234 K/uL (152-406) D 04/17/18 04:27 Sodium 139 mmol/L (136-145) 04/17/18 04:27 Potassium 4.7 mmol/L (3.5-5.1) 04/17/18 04:27 BUN 15 mg/dL (7-18) 04/17/18 04:27 Creatinine 4.60 mg/dL (0.55-1.3) H D 04/17/18 04:27 Glucose 200 mg/dL (74-106) H 04/17/18 04:27 Magnesium 2.1 mg/dL (1.8-2.4) 04/17/18 04:27 Home Medications: Carvedilol 6.25 mg PO BID 02/10/18 Cholecalciferol (Vitamin D3) [Vitamin D 5,000 IU Cap*] 1 tab PO DAILY 02/10/18 Furosemide [Lasix] 3 tab PO BID 02/10/18 Gabapentin [Neurontin*] 100 mg PO TID 02/10/18 Insulin Glargine,Hum.rec.anlog [Toudahlia Solostar] 40 unit SQ DAILY 02/10/18 Lipase/Protease/Amylase [German Samuels 12,000 Units Capsule] 24,000 unit PO TID 02/10 Omeprazole 20 mg PO DAILY 02/10/18 Simvastatin 80 mg PO BEDTIME 02/10/18 Calcitrol [Rocaltrol*] 0.5 mcg PO DAILY #60 cap 02/13/18 Ferrous Sulfate [Ferrous Sulfate*] 325 mg PO DAILY #30 tab 02/13/18 Sevelamer Carbonate [Renvela*] 1,600 mg PO TIDWM #90 tablet 02/13/18 Amlodipine [Norvasc*] 5 mg PO BID #60 tab 04/17/18 New Medications: Amlodipine [Norvasc*] 5 mg PO BID #60 tab Patient Discharge Instructions: 1. Patient will need to follow up with her PCP in 1 week to follow up this hospitalization. 2. Patient presented with shortness of breath. Patient found to have pulmonary edema secondary to end- stage renal disease. Patient required dialysis x2. Patient doing well this time. At discharge she is to follow up with her PCP to monitor her renal function. Patient is undocumented and unfunded. Patient will follow up with nephrology as needed. Patient may require dialysis again in 1-2 weeks. This can be further monitored by her PCP. 3. Patient has hypertension. Medications adjusted due her stay. At discharge she will continue with Norvasc 5 mg 1 pill twice daily and carvedilol 6.25 mg 1 pill twice daily. Recommendation is to maintain blood pressures less 150/80. Further adjustment can be done by her PCP. 4. Patient has diabetes. Patient will continue with insulin therapy including Teojeo 40 units subcu daily. Recommendation is to maintain blood sugars less 140 fasting and less than 200 after meals. Further adjustment can be done by her PCP. 5. Patient has hyperlipidemia. Patient will continue with Zocor 80 mg daily. 6. Patient has diabetic gastroparesis with GERD. Patient will continue with Prilosec 20 mg daily. Recommendation is for the patient follow up with GI as an outpatient to further monitor. Patient will need to continue with her pancreatic enzyme medication. 7. Patient has diabetic neuropathy. Patient continue with gabapentin 100 mg 1 pill 3 times a day. 8. Patient has anemia of chronic disease. Patient continue with iron 325 mg 1 pill once daily. 9. Patient will continue her medication Calcitrol, Renvela. Patient also takes Lasix 40 mg 3 pills twice daily. She is to continue a 1500 cc per day fluid restriction. She is to monitor her weight daily. Recommendation is to follow up with nephrology as an outpatient. Diet: ADA Activity: Fall precautions Time spent managing pt's care (in minutes): 55
[2018-04-17 16:04] VITALS: BP 192/80; TEMP 97.9
[2018-04-17] MEDS ORDERED: RAMIPRIL 5 MG CAP PO SCH (21:00)
--- NOTE | 2018-04-17 22:04 | P.CNS ---
Date of Consult: 04/17/18 Reason for Consult: ESRD Requesting Physician: David Ladd Primary Care Provider: [facility], Dr. Graham in the past Chief Complaint: SOB History of Present Illness: 47 yo HF CKD, HTN, CHF presented with ESRD. Allergies No Known Allergies Allergy (Verified 12/20/17 01:04) Home medications list reviewed: Yes Home Medications: Carvedilol 6.25 mg PO BID 02/10/18 Cholecalciferol (Vitamin D3) [Vitamin D 5,000 IU Cap*] 1 tab PO DAILY 02/10/18 Furosemide [Lasix] 3 tab PO BID 02/10/18 Gabapentin [Neurontin*] 100 mg PO TID 02/10/18 Insulin Glargine,Hum.rec.anlog [Toujeo Solostar] 40 unit SQ DAILY 02/10/18 Lipase/Protease/Amylase [German Samuels 12,000 Units Capsule] 24,000 unit PO TID 02/10 Omeprazole 20 mg PO DAILY 02/10/18 Simvastatin 80 mg PO BEDTIME 02/10/18 Calcitrol [Rocaltrol*] 0.5 mcg PO DAILY #60 cap 02/13/18 Ferrous Sulfate [Ferrous Sulfate*] 325 mg PO DAILY #30 tab 02/13/18 Sevelamer Carbonate [Renvela*] 1,600 mg PO TIDWM #90 tablet 02/13/18 Amlodipine [Norvasc*] 5 mg PO BID #60 tab 04/17/18 - Past Medical/Surgical History Diabetic: Yes -: DM Type 2 -: HTN -: Hyperlipidemia -: ESRD, Unfunded -: GERD -: Chronic pancreatitis -: DM Gastroparesis -: Left AKA -: Anemia of chronic disease -: DM Neuropathy -: Choleycystectomy -: amp left pinky toe by Dr. Barney jul 2015 -: PICC line -: L BKA Oct 2015 Psychosocial/ Personal History: , 2 Children. She is unfunded and not a [place] citizen - Family History Mother Medical History: Lung disease Father Medical History: Heart disease - Social History Smoking Status: Never smoker Alcohol use: No CD- Drugs: No Caffeine use: Yes Place of Residence: Home Review of Systems 10-point ROS is otherwise unremarkable Physical Examination Temp Pulse Resp BP Pulse Ox 97.9 F 83 20 192/80 H 98 04/17/18 13:00 04/17/18 13:00 04/17/18 13:00 04/17/18 13:00 04/17/18 13:00 General: In no apparent distress, Oriented x3 Neck: JVD distended Respiratory: Diminished Cardiovascular: Edema Musculoskeletal: No clubbing Conclusions/Impression: A/ ESRD. HTN. Anemia. Diastolic CHF. P/ Continue current POC and Medications. Arrange for acute HD.
[2018-04-20 03:53] LABS: HBsAG Nonreactive (Nonreactive)
== END 2018-04-17 15:52 | disposition home or self-care (01) | DRG 698 ==
LOC: ER 10:08 → ERHOLD 12:22 → 2ND 13:40
PROVIDERS: ADMIT Family Medicine; ATTEND Family Medicine
PROC: 5A1D70Z Performance of Urinary Filtration, Intermittent, Less than 6 Hours Per Day (ICD-10-PCS; principal; 2018-04-16)
DX: E11.22 Type 2 diabetes mellitus with diabetic chronic kidney disease (principal); J81.0 Acute pulmonary edema; I13.0 Hypertensive heart and chronic kidney disease with heart failure and stage 1 through stage 4 chronic kidney disease, or unspecified chronic kidney disease; I50.30 Unspecified diastolic (congestive) heart failure; Z99.2 Dependence on renal dialysis; Z79.4 Long term (current) use of insulin; E78.5 Hyperlipidemia, unspecified; K21.9 Gastro-esophageal reflux disease without esophagitis; E11.43 Type 2 diabetes mellitus with diabetic autonomic (poly)neuropathy; K31.84 Gastroparesis; Z89.612 Acquired absence of left leg above knee; D63.1 Anemia in chronic kidney disease; E11.40 Type 2 diabetes mellitus with diabetic neuropathy, unspecified; Z89.422 Acquired absence of other left toe(s)
CPT/HCPCS: 36415; 71045; 80048; 81003; 81015; 82962; 83735; 83880; 85014; 85018; 85025; 86317; 86704; 86706; 87340; 90670; 90935; 93005; 96374; 99285; G0009; J1650; J2405; Q4081

== ENCOUNTER 2018-05-01 01:10 | Observation (INO) | payer SELFPAY ==
[2018-05-01] MEDS ORDERED: METOCLOPRAMIDE 10 MG/2mL INJ ONE (01:58)
[2018-05-01] MEDS ORDERED: ONDANSETRON 4 MG/2 ML VIAL ONE (01:58)
--- NOTE | 2018-05-01 02:23 | EDPHYS ---
Physician Documentation [facility] Name: Theresa Mancia Age: 47 yrs Sex: Female : 1970 Arrival Date: 05/01/2018 Time: 01:14 Bed 17 Private MD: ED Physician Anand Whitmore HPI: 05/01 01:31 This 47 yrs old Female presents to ER via Unassigned with complaints of rn Nausea/Vomiting, Abdominal Pain, Breathing Difficulty. 01:31 The patient presents to the emergency department with nausea, vomiting, abdominal pain, rn of the epigastric area. Onset: The symptoms/episode began/occurred at an unknown time. The symptoms are aggravated by nothing. The symptoms are alleviated by nothing. Severity of symptoms: At their worst the symptoms were moderate in the emergency department the symptoms are unchanged. The patient has experienced similar episodes in the past. The patient has been recently seen by a physician:. Reports last dialysis 2 weeks ago, has been going [place], told doesn't meet criteria for emergent dialysis, returns today for nausea/vomiting/epigastric abd pain, + sob and swelling. Symptoms consistent with her chronic symptoms. . 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 - bb Historical: - Allergies: 01:45 No Known Allergies; bb - Home Meds: 01:45 amlodipine 5 mg tab 1 tab once daily [Active]; atenolol 50 mg Oral tab 1 tab 2 times bb per day [Active]; calcitriol 0.25 mcg Oral cap 2 caps once daily [Active]; carvedilol 6.25 mg Oral tab 1 tab 2 times per day [Active]; Creon 24,000-76,000 -120,000 unit Oral cpDR 1 caps 3 times per day [Active]; ferrous sulfate 325 mg (65 mg iron) Oral tab daily [Active]; gabapentin 100 mg Oral cap 1 caps 3 times per day [Active]; Lasix 40 mg Oral tab 3 tabs 2 times per day [Active]; Reglan 10 mg Oral tab 1 tab once daily [Active]; simvastatin 40 mg oral tab 1 tab once daily [Active]; Toujeo SoloStar 300 unit/mL (1.5 mL) subcutaneous inpn 40 unit daily [Active]; Vitamin D 5,000 unit Oral daily [Active]; - PMHx: 01:45 Diabetes - IDDM; Dialysis; Gastroparesis; Hypertension; Renal Disease; bb - PSHx: 01:45 L BKA; bb - Immunization history:: Adult Immunizations unknown. - Social history:: Smoking status: unknown. - Family history:: not pertinent. - Ebola Screening: : No symptoms or risks identified at this time. - Hospitalizations: : No recent hospitalization is reported. ROS: 01:31 Constitutional: Negative for fever, chills, and weight loss, Eyes: Negative for injury, rn pain, redness, and discharge, Neck: Negative for injury, pain, and swelling, Cardiovascular: +swelling, no chest pain Respiratory: Negative for wheezing, and pleuritic chest pain, Abdomen/GI: Negative for diarrhea, and constipation, MS/Extremity: Negative for injury and deformity, Skin: Negative for injury, rash, and discoloration, Neuro: Negative for headache, tingling, and seizure Exam: 01:31 Constitutional: This is a well developed, well nourished patient who is awake, alert, rn and in no acute distress. Head/Face: Normocephalic, atraumatic. Eyes: Pupils equal round and reactive to light, extra-ocular motions intact. Lids and lashes normal. Conjunctiva and sclera are non-icteric and not injected. Cornea within normal limits. Periorbital areas with no swelling, redness, or edema. Neck: Trachea midline, no thyromegaly or masses palpated, and no cervical lymphadenopathy. Supple, full range of motion without nuchal rigidity, or vertebral point tenderness. No Meningismus. Cardiovascular: tachycardic, regular, no murmur Respiratory: + bibasilar crackles, no wheezing Abdomen/GI: soft, mild epigastric tenderness MS/ Extremity: + left lower ext amputation Neuro: Awake and alert, GCS 15, oriented to person, place, time, and situation. Vital Signs: 01:45 BP 202 / 103; Pulse 113; Resp 20 S; Temp 98.9(O); Pulse Ox 96% on R/A; Weight 86.18 kg bb (R); Height 5 ft. 0 in. (152.40 cm); Pain 10/10; 01:45 BP 211 / 109; bs1 02:45 BP 186 / 164; Pulse 113; Resp 18 S; Pulse Ox 94% on R/A; bs1 03:30 BP 188 / 104; Pulse 102; Resp 18; Temp 97.9(O); Pulse Ox 94% ; Pain 8/10; bs1 03:34 BP 154 / 88; Pulse 98; Resp 17; Pulse Ox 95% on R/A; Pain 8/10; bs1 01:45 Body Mass Index 37.11 (86.18 kg, 152.40 cm) bb MDM: 01:21 Patient medically screened. rn 02:20 Differential diagnosis: gastroparesis, ESRD, dyspnea, volume overload. Data reviewed: rn vital signs, nurses notes, and as a result, I will admit patient. Counseling: I had a detailed discussion with the patient and/or guardian regarding: the historical points, exam findings, and any diagnostic results supporting the discharge/admit diagnosis, the need for further work-up and treatment in the hospital. Response to treatment: the patient's symptoms have mildly improved after treatment, and as a result, I will admit patient. Admission orders: after a detailed discussion of the patient's condition and case, the admit orders are written by me. ED course: Pt volume overloaded, extremely hypertensive, on compassionate dialysis given no funding, has not had dialysis in 2 weeks, will admit for dialysis. . 05/01 01:30 Order name: Basic Metabolic Panel; Complete Time: 03:17 rn 05/01 01:30 Order name: CBC with Diff; Complete Time: 02:45 rn 05/01 01:30 Order name: XRAY Chest (1 view) rn 05/01 01:30 Order name: BNP; Complete Time: 03:17 rn 05/01 01:30 Order name: IV Start; Complete Time: 02:32 rn 05/01 01:30 Order name: EKG; Complete Time: 01:30 rn 05/01 01:30 Order name: EKG - Nurse/Tech; Complete Time: 03:02 rn Administered Medications: 02:28 Drug: Zofran 4 mg Route: IVP; Site: right forearm; bs1 03:02 Follow up: Response: No adverse reaction bs1 02:32 Drug: Reglan 10 mg Route: IVP; Site: right forearm; bs1 03:01 Follow up: Response: No adverse reaction bs1 Disposition: 05/01/18 02:22 Hospitalization ordered by Lana Varela for Observation. Preliminary diagnosis are End stage renal disease, Pulmonary edema, Dyspnea, unspecified. - Bed requested for Telemetry/MedSurg (observation). - Status is Observation. bs1 - Condition is Stable. - Problem is an ongoing problem. - Symptoms have improved. UTI on Admission? No Signatures: Dispatcher [employer] EDMS Lillie Day RN RN kl Ballard, Brenda, RN RN bb Nieto, Roman, MD MD rn Salazar, Brittany, RN RN bs1 Corrections: (The following items were deleted from the chart) 03:17 02:22 Hospitalization Ordered by Lana Varela MD for Observation. Preliminary kl diagnosis is End stage renal disease; Pulmonary edema; Dyspnea, unspecified. Bed requested for Telemetry/MedSurg (observation). Status is Observation. Condition is Stable. Problem is an ongoing problem. Symptoms have improved. UTI on Admission? No. rn 03:50 03:17 05/01/2018 02:22 Hospitalization Ordered by Lana Varela MD for Observation. bs1 Preliminary diagnosis is End stage renal disease; Pulmonary edema; Dyspnea, unspecified. Bed requested for Telemetry/MedSurg (observation). Status is Observation. Condition is Stable. Problem is an ongoing problem. Symptoms have improved. UTI on Admission? No. kl
--- NOTE | 2018-05-01 02:23 | ER ---
Nurse's Notes [facility] Name: Theresa Mancia Age: 47 yrs Sex: Female : 1970 Arrival Date: 05/01/2018 Time: 01:14 Bed 17 Private MD: Diagnosis: End stage renal disease;Pulmonary edema;Dyspnea, unspecified Presentation: 05/01 01:39 Presenting complaint: pt has not had dialysis in two weeks is having difficulty bb breathing and is having abdominal pain. Transition of care: patient was not received from another setting of care. Onset of symptoms was April 17, 2018. Risk Assessment: Do you want to hurt yourself or someone else? Patient reports no desire to harm self or others. Initial Sepsis Screen: Does the patient meet any 2 criteria? No. Patient's initial sepsis screen is negative. Does the patient have a suspected source of infection? No. Patient's initial sepsis screen is negative. 01:39 Method Of Arrival: Wheelchair bb 01:39 Acuity: MISHEL 2 bb 02:56 Care prior to arrival: None. bs1 FIRER KILN: 01:45 LMP N/A - bb Historical: - Allergies: 01:45 No Known Allergies; bb - Home Meds: 01:45 amlodipine 5 mg tab 1 tab once daily [Active]; atenolol 50 mg Oral tab 1 tab 2 times bb per day [Active]; calcitriol 0.25 mcg Oral cap 2 caps once daily [Active]; carvedilol 6.25 mg Oral tab 1 tab 2 times per day [Active]; Creon 24,000-76,000 -120,000 unit Oral cpDR 1 caps 3 times per day [Active]; ferrous sulfate 325 mg (65 mg iron) Oral tab daily [Active]; gabapentin 100 mg Oral cap 1 caps 3 times per day [Active]; Lasix 40 mg Oral tab 3 tabs 2 times per day [Active]; Reglan 10 mg Oral tab 1 tab once daily [Active]; simvastatin 40 mg oral tab 1 tab once daily [Active]; Toujeo SoloStar 300 unit/mL (1.5 mL) subcutaneous inpn 40 unit daily [Active]; Vitamin D 5,000 unit Oral daily [Active]; - PMHx: 01:45 Diabetes - IDDM; Dialysis; Gastroparesis; Hypertension; Renal Disease; bb - PSHx: 01:45 L BKA; bb - Immunization history:: Adult Immunizations unknown. - Social history:: Smoking status: unknown. - Family history:: not pertinent. - Ebola Screening: : No symptoms or risks identified at this time. - Hospitalizations: : No recent hospitalization is reported. Screenin:56 Abuse screen: Denies threats or abuse. Denies injuries from another. Nutritional bs1 screening: No deficits noted. Tuberculosis screening: No symptoms or risk factors identified. Fall Risk None identified. Assessment: 01:20 General: Appears uncomfortable, ill, Behavior is cooperative, flat. Pain: Complains of bs1 pain in epigastric area/abdomen. Neuro: Level of Consciousness is awake, alert, obeys commands. 01:20 Cardiovascular: Reports shortness of breath, Denies chest pain, Heart tones S1 S2 bs1 present Capillary refill < 3 seconds Patient's skin is warm and dry. Dialysis shunt: in the right chest wall- port, with no erythema, with no edema, no bleeding noted. Respiratory: Airway is patent Trachea midline Respiratory effort is even, unlabored, Respiratory pattern is regular, symmetrical, Breath sounds are clear bilaterally. GI: Abdomen is round non-distended, Bowel sounds present X 4 quads. Reports lower abdominal pain, upper abdominal pain, nausea, vomiting. : No signs and/or symptoms were reported regarding the genitourinary system. EENT: No signs and/or symptoms were reported regarding the EENT system. Derm: Skin is intact, Skin is jaundiced. Musculoskeletal: Amputation of left BKA. Circulation, motion, and sensation intact. Capillary refill < 3 seconds, Range of motion: intact in all extremities. 01:45 Reassessment: Informed Dr Whitmore of blood pressure 211/109, Dr States "Okay, Yeah her bs1 pressure is always that high." No orders received at this time. 02:54 Reassessment: Informed Dr Whitmore that patient is requesting pain medication. No further bs1 orders at [facility]. 03:19 Reassessment: Morphine 2mg IVP given per [facility] order by Dr Mcnally. bs1 03:30 Reassessment: Patient appears in no apparent distress at this time. Patient and/or bs1 family updated on plan of care and expected duration. Pain level reassessed. Patient is alert, oriented x 3, equal unlabored respirations, skin warm/dry/pink. Vital Signs: 01:45 BP 202 / 103; Pulse 113; Resp 20 S; Temp 98.9(O); Pulse Ox 96% on R/A; Weight 86.18 kg bb (R); Height 5 ft. 0 in. (152.40 cm); Pain 10/10; 01:45 BP 211 / 109; bs1 02:45 BP 186 / 164; Pulse 113; Resp 18 S; Pulse Ox 94% on R/A; bs1 03:30 BP 188 / 104; Pulse 102; Resp 18; Temp 97.9(O); Pulse Ox 94% ; Pain 8/10; bs1 03:34 BP 154 / 88; Pulse 98; Resp 17; Pulse Ox 95% on R/A; Pain 8/10; bs1 01:45 Body Mass Index 37.11 (86.18 kg, 152.40 cm) bb ED Course: 01:14 Patient arrived in ED. es 01:21 Anand Whitmore MD is Attending Physician. rn 01:41 Triage completed. bb 01:41 X-ray completed. Portable x-ray completed in exam room. Patient tolerated procedure kp1 well. 01:43 Palak Iglesias RN is Primary Nurse. bs1 01:45 Arm band placed on Patient placed in an exam room, on a stretcher, on pulse oximetry. bb Family accompanied patient. 01:45 Patient has correct armband on for positive identification. Bed in low position. Call bs1 light in reach. Side rails up X 1. Pulse ox on. NIBP on. 01:49 XRAY Chest (1 view) In Process Unspecified. EDMS 02:22 Lana Varela MD is Hospitalizing Provider. rn 02:27 Inserted saline lock: 22 gauge in right forearm, using aseptic technique. Blood bs1 collected. Inserted by ANSELMO Vizcarra, attempted x2 by ANSELMO puga right/left AC. 03:17 Notified ED physician of a critical lab result(s). creatinine of 14.90 Dr Whitmore bb notified. 03:32 No provider procedures requiring assistance completed. Patient admitted, IV remains in bs1 place. intact. Administered Medications: 02:28 Drug: Zofran 4 mg Route: IVP; Site: right forearm; bs1 03:02 Follow up: Response: No adverse reaction bs1 02:32 Drug: Reglan 10 mg Route: IVP; Site: right forearm; bs1 03:01 Follow up: Response: No adverse reaction bs1 Outcome: 02:22 Decision to Hospitalize by Provider. rn 03:32 Admitted to Tele accompanied by tech, via wheelchair, room 408, with chart, Report bs1 called to ANSELMO Olsen 03:32 Condition: stable 03:32 Instructed on the need for admit. 03:50 Patient left the ED. bs1 Signatures: Dispatcher [employer] Elsy Calvo Brenda RN RN bb Anand Whitmore MD MD rn Poole, Kathy 1 Palak Iglesias RN RN bs1 Corrections: (The following items were deleted from the chart) 03:26 01:20 Derm: Skin is intact, bs1 bs1 03:27 01:20 Cardiovascular: Reports shortness of breath, Denies chest pain, Heart tones S1 S2 bs1 present Capillary refill < 3 seconds Patient's skin is warm and dry. bs1
[2018-05-01 02:40] LABS: Absolute Lymphocytes (CBC) 1.2 K/uL (0.7-4.9); Absolute Monocytes 0.4 K/uL (0.1-1.3); Basophils % 1.3 % (0-1.3); Eosinophils % 1.3 % (0-4.4); Lymphocytes % 17.5 % (15.3-44.8); MCH 23.7 pg (27.0-35.0); MCV 76.4 fL (80-100); MPV 7.6 fL (7.6-11.3); Monocytes % 5.6 % (3.3-12.3); RBC Red Blood Cell Count 3.54 M/uL (3.86-4.86)
[2018-05-01] MEDS ORDERED: Morphine 2 MG/2 ML SYR IV PRN (02:59)
--- NOTE | 2018-05-01 03:09 | P.HP ---
Certification for Inpatient Patient admitted to: Observation With expected LOS: <2 Midnights Practitioner: I am a practitioner with admitting privileges, knowledge of patient current condition, hospital course, and medical plan of care. Services: Services provided to patient in accordance with Admission requirements found in Title 42 Section 412.3 of the Code of Federal Regulations Patient History Date of Service: 05/01/18 Reason for admission: Needs hemodyalisis History of Present Illness: Ms Mancia is a 47 years old woman with history of DM, HT, diabetic gastroparesis, ESRD on HD who is unfunded, no [place] citizen, receivomg HD in [facility] ER. Last time she had HD was on 04/17/18. She went to [place] ER several times this week and she was told that HD was not indicated yest. The patient complain of abdominal pain for the last week She had nausea and vomiting , not able to keep food down. No history of fever or chills. She is pale, afebrile. Lab work shows normal WBC count. Hgb is 8.4 mg/dl, she has history of anemia due to CKD, chemestry is still pending. Allergies No Known Allergies Allergy (Verified 12/20/17 01:04) Home medications list reviewed: Yes Home Medications: Carvedilol 6.25 mg PO BID 02/10/18 Cholecalciferol (Vitamin D3) [Vitamin D 5,000 IU Cap*] 1 tab PO DAILY 02/10/18 Furosemide [Lasix] 3 tab PO BID 02/10/18 Gabapentin [Neurontin*] 100 mg PO TID 02/10/18 Insulin Glargine,Hum.rec.anlog [Efra Martinez] 40 unit SQ DAILY 02/10/18 Lipase/Protease/Amylase [German Samuels 12,000 Units Capsule] 24,000 unit PO TID 02/10 Omeprazole 20 mg PO DAILY 02/10/18 Simvastatin 80 mg PO BEDTIME 02/10/18 Calcitrol [Rocaltrol*] 0.5 mcg PO DAILY #60 cap 02/13/18 Ferrous Sulfate [Ferrous Sulfate*] 325 mg PO DAILY #30 tab 02/13/18 Sevelamer Carbonate [Renvela*] 1,600 mg PO TIDWM #90 tablet 02/13/18 Amlodipine [Norvasc*] 5 mg PO BID #60 tab 04/17/18 - Past Medical/Surgical History Diabetic: Yes -: DM Type 2 -: HTN -: Hyperlipidemia -: ESRD, Unfunded -: GERD -: Chronic pancreatitis -: DM Gastroparesis -: Left AKA -: Anemia of chronic disease -: DM Neuropathy -: Choleycystectomy -: amp left pinky toe by Dr. Barney jul 2015 -: PICC line -: L BKA Oct 2015 Psychosocial/ Personal History: , 2 Children. She is unfunded and not a [place] citizen - Family History Mother -: Lung disease Father -: Heart disease - Social History Smoking Status: Never smoker Alcohol use: No CD- Drugs: No Caffeine use: Yes Place of Residence: Home Review of Systems 10-point ROS is otherwise unremarkable Physical Examination - Physical Exam General: Alert, In no apparent distress, Other (pale) HEENT: Atraumatic, PERRLA, Mucous membr. moist/pink, EOMI, Sclerae nonicteric Neck: Supple, 2+ carotid pulse no bruit, No LAD, Without JVD or thyroid abnormality Respiratory: Clear to auscultation bilaterally, Normal air movement Cardiovascular: Regular rate/rhythm, Normal S1 S2 Gastrointestinal: Normal bowel sounds, Tenderness (diffuse tenderness to palpation) Musculoskeletal: No tenderness Integumentary: No rashes Neurological: Normal speech, Normal strength at 5/5 x4 extr, Normal tone, Normal affect Lymphatics: No axilla or inguinal lymphadenopathy - Studies Laboratory Data (last 24 hrs) 05/01/18 02:20: WBC 6.7, Hgb 8.4 L, Hct 27.0 L, Plt Count 312 D Assessment and Plan - Problems (Diagnosis) (1) Anemia in chronic kidney disease Onset Date: 12/20/17 Current Visit: No Status: Acute Qualifiers: Chronic kidney disease stage: on chronic dialysis Qualified Code(s): N18.6 - End stage renal disease; D63.1 - Anemia in chronic kidney disease; Z99.2 - Dependence on renal dialysis (2) Gastroparesis Onset Date: 12/20/17 Current Visit: No Status: Acute (3) End stage renal disease Onset Date: 12/20/17 Current Visit: No Status: Chronic (4) Hypertension Onset Date: 12/20/17 Current Visit: No Status: Chronic Qualifiers: Hypertension type: essential hypertension Qualified Code(s): I10 - Essential (primary) hypertension (5) Uncontrolled diabetes mellitus Onset Date: 05/02/15 Current Visit: No Status: Chronic Qualifiers: Diabetes mellitus type: type 2 Diabetes mellitus usp insulin use: with usp use Diabetes mellitus complication status: with kidney complications Diabetes mellitus complication detail: with chronic kidney disease Chronic kidney disease stage: on chronic dialysis Qualified Code(s) : E11.22 - Type 2 diabetes mellitus with diabetic chronic kidney disease; E11.65 - Type 2 diabetes mellitus with hyperglycemia; N18.6 - End stage renal disease; Z79.4 - [facility]DC (current) use of insulin; Z99.2 - Dependence on renal dialysis - Plan The patient will be admitted to the hospital due to ESRD requiring HD. Still awaiting chemestry panel, Will order SSI for BS control while is in the hospital , consult Dr Rey for HD orders. - Advance Directives Does patient have a Living Will: No Does patient have a Durable POA for Healthcare: No - Code Status/Comfort Care Code Status Assessed: Yes Code Status: Full Code
[2018-05-01 03:14] LABS: BUN Blood Urea Nitrogen 65 mg/dL (7-18); Bicarbonate 19 mmol/L (21-32); Glucose Level 71 mg/dL (74-106); Sodium Level 138 mmol/L (136-145)
[2018-05-01] MEDS ORDERED: MORPHINE 4 MG/ML SYR ONE (03:16)
[2018-05-01 03:17] LABS: NT PRO-BNP > 175000 pg/mL (<125)
[2018-05-01] MEDS ORDERED: GLUCAGON 1 MG/VIAL IM PRN (05:19)
[2018-05-01] MEDS ORDERED: D50W 25 GM/50 ML SYRINGE IV PRN (05:19)
[2018-05-01] MEDS: INSULIN -REGULAR HUMAN 50 UNIT/0.5 ML ML SQ SCH ×4 (05:37→20:24)
[2018-05-01] MEDS ORDERED: HYDRALAZINE HCL 20 MG/ML VIAL IV PRN (05:43)
[2018-05-01] MEDS ORDERED: INSULIN -REGULAR HUMAN 50 UNIT/0.5 ML ML SQ SCH (06:00)
[2018-05-01] MEDS ORDERED: HYDRALAZINE HCL 20 MG/ML VIAL ONE (06:29)
[2018-05-01] MEDS ORDERED: MORPHINE 4 MG/ML SYR IV PRN (07:35)
[2018-05-01] MEDS: ONDANSETRON 4 MG/2 ML VIAL IV PRN (07:41)
--- NOTE | 2018-05-01 09:28 | EKG ---
Test Date: 2018-05-01 Test Time: 02:42:20 [employer] Official: ABIMAEL MEASUREMENT RESULTS: Intervals: Rate: 107 DC: 126 QRSD: 124 QT: 304 QTc: 405 [place]: P: 32 DC: 126 QRS: 114 T: -50 INTERPRETIVE STATEMENTS: Sinus tachycardia Right bundle branch block Left posterior fascicular block Bifascicular block T wave abnormality, consider inferior ischemia Abnormal ECG Compared to ECG 04/16/2018 11:09:09 Left posterior fascicular block now present Bifascicular block now present T-wave abnormality now present Possible ischemia now present Electronically Signed On 05-01-18 09:27:13 CDT by Aneesh Toussaint
[2018-05-01] MEDS ORDERED: FUROSEMIDE 40 MG TABLET PO SCH (11:00)
[2018-05-01] MEDS: CALCITROL 0.25 MCG CAP PO SCH (11:16)
[2018-05-01] MEDS: METOCLOPRAMIDE 5 MG TAB PO SCH ×3 (11:16→20:24)
[2018-05-01] MEDS: CARVEDILOL 6.25 MG TAB PO SCH ×2 (11:19→20:22)
[2018-05-01] MEDS: AMLODIPINE 5 MG TAB PO SCH ×2 (11:19→20:22)
[2018-05-01] MEDS: FERROUS SULFATE 325 MG TAB PO SCH (11:19)
--- NOTE | 2018-05-01 12:24 | RAD REPORT ---
EXAM DESCRIPTION: Mariia Single View05/01/2018 11:03 am CLINICAL HISTORY: Shortness of breath COMPARISON: January 2018 FINDINGS: A few areas of subsegmental atelectasis are present within the left lung base. The remainder of the lungs appear clear of acute infiltrate. The heart is mildly enlarged. Central v enous catheter remains in place Small pleural effusions are suspected
[2018-05-01] MEDS ORDERED: MANNITOL 25% 12.5 GM/50 ML VIAL IV PRN (13:38)
[2018-05-01] MEDS ORDERED: NA CHLORIDE 0.9% 1,000 ML IV PRN (13:38)
[2018-05-01] MEDS: ACETAMINOPHEN 500 MG TAB PO PRN (13:45)
[2018-05-01] MEDS ORDERED: EPOETIN ALFA 10,000 UNIT/ML VIAL IV SCH ×2 (13:45→14:15)
[2018-05-01] MEDS: LIPASE/PROTEASE/AMYLASE CAP PO SCH ×2 (13:45→20:23)
[2018-05-01] MEDS: GABAPENTIN 100 MG CAP PO SCH ×2 (13:46→20:23)
[2018-05-01] MEDS ORDERED: ALBUMIN HUMAN 25% 50 ML IV SCH (14:00)
[2018-05-01] MEDS: SEVELAMER CARBONATE 800 MG TABLET PO SCH (17:00)
[2018-05-01] MEDS: FUROSEMIDE 40 MG/4 ML VIAL IV SCH (17:00)
--- NOTE | 2018-05-01 19:13 | CON ---
Date of Consultation: 05/01/2018 Additional Consulting Physician: Dr. Dennis. Reason For Consultation: Elevated BUN and creatinine, hypertension, end-stage renal disease and flui d management. History Of Present Illness: This is an unfortunate 47-year-old female with significant past medical history of end-stage renal disease, on compassionate dialysis because of lack of financial support. [place]. Medical history of diabetes, hypertensio n, end-stage renal disease, hyperlipidemia, neuropathy, peripheral vascular disease, colon artery dis ease. Came to the hospital complaining of weakness, nausea, and vomiting. Found to have elevated BU N and creatinine, over volume; for that reason, we have been consulted. The patient lost dialysis ac cording to her 2 weeks ago. Allergies: NO KNOWN DRUGS ALLERGY. Home Medications: Include carvedilol 6.25 b.i.d., cholecalciferol, Lasix 80 daily, insulin _ omeprazole, simvastatin, calcitriol, Renvela and amlodipine. Past Medical History: Include diabetes, hypertension, peripheral vascular disease, status post right below-knee amputation, end-stage renal disease, on hemodialysis, compression dialysis through right IJ Permacath, diabetes complicated with neuropathy and nephropathy. Past Surgical History: Include: 1.Cholecystectomy. 2.Permacath placement. 3.Below-knee amputation. 4.PICC line. Family History: Positive for hypertension and diabetes. Social History: Denies smoking, denies drinking, denies drug abuse. Review of Systems: Head and Neck: No red eye. No ear pain. GI: Has nausea, vomiting. : No polyuria. No dysuria. No hematuria. MOUNTER SAXOPHONES: No vaginal discharge. Respiratory: Has shortness of breath. Cardiovascular: Has leg swelling. Endocrine: No polydipsia. Skin: No rash. Neuro: Has neuropathy. Musculoskeletal: No joint pain. Endocrine: No polydipsia. Skin: No rash. Physical Examination: Vital Signs: When I saw the patient, the patient was lying in bed. Blood pressure 166/86, pulse of 97. Chest: Crackles bilateral base. Heart: S1, S2. Regular. Systolic murmur. Abdomen: Soft, nontender. Extremity: Right below-knee amputation, left toes amputation. Laboratory Data: WBC 6.7, H and H 8.4/27 and platelet of 312. Sodium 138, potassium 5, bicarb 19, B UN 65,creatinine 14, calcium 7.8. BNP 175,000. Chest x-ray, cardiomegaly with congestion bilateral. Assessment And Plan: 1.End-stage renal disease, over volume, marginal hyperkalemia. I am going to go ahead and arrange f or dialysis today. We will dialyze her today and tomorrow. Then, we will monitor for the patient. 2.Acidosis secondary to renal failure. It will be corrected after dialysis. 3.Secondary hyperparathyroidism. Continue binder. 4.Anemia, resume Epogen. 5.Diabetes as by Primary. 6.Gastritis/gastroparesis as by Primary. KASANDRA/MODL Voice ID: [id number] Report ID: [id number]
[2018-05-01] MEDS: ATORVASTATIN 40 MG TAB PO SCH (20:23)
[2018-05-01] MEDS ORDERED: HOME MED 1 EA UNK (Simvastatin [Simvastatin] 80 MG) PO SCH (21:00)
[2018-05-02] MEDS: ONDANSETRON 4 MG/2 ML VIAL IV PRN ×2 (00:15→12:05)
[2018-05-02] MEDS: ACETAMINOPHEN 500 MG TAB PO PRN ×3 (00:15→22:13)
[2018-05-02 04:21] LABS: Albumin 2.3 g/dL (3.4-5.0); Phosphorus 5.5 mg/dL (2.5-4.9); Potassium 4.7 mmol/L (3.5-5.1)
[2018-05-02] MEDS: INSULIN -REGULAR HUMAN 50 UNIT/0.5 ML ML SQ SCH ×4 (07:30→21:00)
[2018-05-02] MEDS: VITAMIN D 5,000 UNIT CAP PO SCH (08:53)
[2018-05-02] MEDS: FERROUS SULFATE 325 MG TAB PO SCH (08:54)
[2018-05-02] MEDS: CALCITROL 0.25 MCG CAP PO SCH (08:54)
[2018-05-02] MEDS: GABAPENTIN 100 MG CAP PO SCH ×3 (08:54→22:05)
[2018-05-02] MEDS: SEVELAMER CARBONATE 800 MG TABLET PO SCH ×3 (08:54→17:53)
[2018-05-02] MEDS: METOCLOPRAMIDE 5 MG TAB PO SCH ×4 (08:54→22:05)
[2018-05-02] MEDS: CARVEDILOL 6.25 MG TAB PO SCH ×2 (08:54→22:05)
[2018-05-02] MEDS: FUROSEMIDE 40 MG/4 ML VIAL IV SCH (08:55)
[2018-05-02] MEDS: LIPASE/PROTEASE/AMYLASE CAP PO SCH ×3 (08:55→22:04)
[2018-05-02] MEDS: AMLODIPINE 5 MG TAB PO SCH ×2 (08:55→22:04)
--- NOTE | 2018-05-02 10:40 | P.PN ---
Subjective Date of Service: 05/02/18 Chief Complaint: Needs hemodyalisis Patient seen and examined at bedside. Chart reviewed. Currently patient has no complaints to offer. Status post hemodialysis yesterday. He is doing well overall. No nausea no vomiting today. Review of Systems General: As per HPI Physical Examination - Vital Signs Temperature: 97.9 F Blood Pressure: 123/70 Pulse: 83 Respirations: 18 Pulse Ox (%): 96 - Physical Exam General: Alert, In no apparent distress, Oriented x3 HEENT: Atraumatic, PERRLA, EOMI Neck: Supple, JVD not distended Respiratory: Clear to auscultation bilaterally, Normal air movement Cardiovascular: Regular rate/rhythm, Normal S1 S2 Gastrointestinal: Normal bowel sounds, No tenderness Musculoskeletal: No tenderness Integumentary: No rashes Neurological: Normal speech, Normal tone, Normal affect Lymphatics: No axilla or inguinal lymphadenopathy - Studies Medications List Reviewed: Yes Assessment & Plan - Problems (Diagnosis) (1) End stage renal disease Onset Date: 12/20/17 Current Visit: No Status: Chronic Plan: ESRD with Acute Volume Overload due to No dialysis. Pt is Unfunded and thus has not been able to be setup with Dialysis -Pt scheduled For HD today -Nephrology consulted. Appreciate reccs -BUN.CR improved today (2) Gastroparesis Onset Date: 12/20/17 Current Visit: No Status: Chronic Plan: On reglan now (3) Diabetes mellitus Current Visit: No Status: Chronic Qualifiers: Diabetes mellitus type: type 2 Diabetes mellitus poultry offal icer insulin use: with poultry offal icer use Diabetes mellitus complication status: with kidney complications Diabetes mellitus complication detail: with chronic kidney disease Chronic kidney disease stage: on chronic dialysis Qualified Code(s) : E11.22 - Type 2 diabetes mellitus with diabetic chronic kidney disease; N18.6 - End stage renal disease; Z79.4 - [facility] (current) use of insulin; Z99.2 - Dependence on renal dialysis (4) GERD (gastroesophageal reflux disease) Current Visit: No Status: Chronic Qualifiers: Esophagitis presence: esophagitis presence not specified Qualified Code(s) : K21.9 - Gastro-esophageal reflux disease without esophagitis (5) Hyperlipidemia Current Visit: No Status: Chronic Qualifiers: Hyperlipidemia type: unspecified Qualified Code(s): E78.5 - Hyperlipidemia , unspecified (6) Hypertension Onset Date: 12/20/17 Current Visit: No Status: Chronic Qualifiers: Hypertension type: essential hypertension Qualified Code(s): I10 - Essential (primary) hypertension Discharge Plan: Home Plan to discharge in: 48 Hours - Code Status/Comfort Care Code Status Assessed: Yes Critical Care: No
[2018-05-02] MEDS ORDERED: ALTEPLASE 2 MG/VIAL IV ONE (18:00)
[2018-05-02] MEDS ORDERED: ALTEPLASE 2 MG/VIAL IV SCH (18:00)
[2018-05-02] MEDS: ATORVASTATIN 40 MG TAB PO SCH (22:05)
--- NOTE | 2018-05-03 02:47 | PN ---
Date of Progress Note: 05/02/2018 Chief Complaint: End-stage renal disease. The patient presented to the hospital for compassionate d ialysis. The patient received dialysis yesterday to control fluid overload. Today, the patient bree ins fluid overloaded, has leg edema. Denies PND or orthopnea. Review of Systems: Denies fever, chills. Physical Examination: Lungs: Clear to auscultation bilaterally. Heart: S1, S2. Abdomen: Soft, benign. Extremities: Edema 2+ in both legs. Laboratory Data: Hemoglobin 9.4, WBC 6.7, platelet count is 312,000. Sodium 142, potassium 4.7, chl oride 105, CO2 23, BUN 35, creatinine 9.2, calcium 7.4, phosphorus 5.3, albumin 2.3. Impression And Plan: 1.End-stage renal disease. The patient will have dialysis today with ultrafiltration. The patient remains fluid overloaded. Has anasarca. Continue low-sodium diet and p.o. fluid restriction. 2.Hypertension. Blood pressure in acceptable control. Continue medication. 3.Hypoalbuminemia, increase p.o. protein intake. 4.Renal osteodystrophy. Monitor phosphorus level. EB/MODL Voice ID: [id number] Report ID: [id number]
[2018-05-03 05:23] VITALS: BMI 35.2
[2018-05-03 06:33] LABS: Albumin 2.1 g/dL (3.4-5.0); Phosphorus 3.8 mg/dL (2.5-4.9); Potassium 4.2 mmol/L (3.5-5.1)
[2018-05-03] MEDS: INSULIN -REGULAR HUMAN 50 UNIT/0.5 ML ML SQ SCH ×2 (07:30→11:29)
[2018-05-03] MEDS: METOCLOPRAMIDE 5 MG TAB PO SCH ×2 (08:05→11:31)
[2018-05-03] MEDS: SEVELAMER CARBONATE 800 MG TABLET PO SCH ×2 (08:05→11:31)
[2018-05-03] MEDS: VITAMIN D 5,000 UNIT CAP PO SCH (08:06)
[2018-05-03] MEDS: FERROUS SULFATE 325 MG TAB PO SCH (08:06)
[2018-05-03] MEDS: CALCITROL 0.25 MCG CAP PO SCH (08:06)
[2018-05-03] MEDS: GABAPENTIN 100 MG CAP PO SCH (08:06)
[2018-05-03] MEDS: AMLODIPINE 5 MG TAB PO SCH (08:06)
[2018-05-03] MEDS: CARVEDILOL 6.25 MG TAB PO SCH (08:06)
[2018-05-03] MEDS: FUROSEMIDE 40 MG/4 ML VIAL IV SCH (08:07)
[2018-05-03] MEDS: LIPASE/PROTEASE/AMYLASE CAP PO SCH (08:13)
[2018-05-03 09:30] VITALS: O2SAT 93
[2018-05-03 12:10] VITALS: BP 118/57; TEMP 97.7
--- NOTE | 2018-05-03 16:26 | P.DS ---
Admission Date: 05/01/18 Discharge Date: 05/03/18 Disposition: ROUTINE DISCHARGE Discharge Condition: GOOD Reason for Admission: Needs hemodyalisis Consultations: Nephrology - Dr CANDELARIO - Problems (1) End stage renal disease Onset Date: 05/02/18 Status: Chronic (2) Gastroparesis Onset Date: 12/20/17 Status: Chronic (3) Diabetes mellitus Status: Chronic Qualifiers: Diabetes mellitus type: type 2 Diabetes mellitus penitentiary insulin use: with penitentiary use Diabetes mellitus complication status: with kidney complications Diabetes mellitus complication detail: with chronic kidney disease Chronic kidney disease stage: on chronic dialysis Qualified Code(s) : E11.22 - Type 2 diabetes mellitus with diabetic chronic kidney disease; N18.6 - End stage renal disease; Z79.4 - shelter (current) use of insulin; Z99.2 - Dependence on renal dialysis (4) GERD (gastroesophageal reflux disease) Status: Chronic Qualifiers: Esophagitis presence: esophagitis presence not specified Qualified Code(s) : K21.9 - Gastro-esophageal reflux disease without esophagitis (5) Hyperlipidemia Status: Chronic Qualifiers: Hyperlipidemia type: unspecified Qualified Code(s): E78.5 - Hyperlipidemia , unspecified (6) Hypertension Onset Date: 05/02/18 Status: Chronic Qualifiers: Hypertension type: essential hypertension Qualified Code(s): I10 - Essential (primary) hypertension Brief History of Present Illness: See HPI Hospital Course: Patient presented with shortness of breath, nausea and vomitting. Patient found to have pulmonary edema secondary to end-stage renal disease. Patient is undocumented and unfunded. Patient requires dialysis on as needed basis. She goes to several hospitals to get dialysis when needed. She primarily goes to Counts include 234 beds at the [facility]. Patient required dialysis during his stay. Nephrology consulted. Patient received dialysis x2. At discharge she will need to follow up with her PCP or nephrology as an outpatient to monitor her renal function. Patient may require future hospitalizations for dialysis. This can be managed by her PCP or nephrology. Patient has diabetic gastroparesis with GERD. Patient was started on Reglan 10 mg b.i.d. here in the hospital. Did well overall. Vital Signs/Physical Exam: Temp Pulse Resp BP Pulse Ox 97.7 F 68 18 118/57 L 92 05/03/18 12:00 05/03/18 12:00 05/03/18 12:00 05/03/18 12:00 05/03/18 12:00 General: Alert, In no apparent distress HEENT: Atraumatic, PERRLA, EOMI Neck: Supple, JVD not distended Respiratory: Clear to auscultation bilaterally, Normal air movement Cardiovascular: Regular rate/rhythm, Normal S1 S2 Gastrointestinal: Normal bowel sounds, No tenderness Musculoskeletal: No tenderness Integumentary: No rashes Neurological: Normal speech, Normal tone, Normal affect Lymphatics: No axilla or inguinal lymphadenopathy Laboratory Data at Discharge: WBC 6.7 K/uL (4.3-10.9) 05/01/18 02:20 Hgb 8.4 g/dL (12.0-15.0) L 05/01/18 02:20 Hct 27.0 % (36.0-45.0) L 05/01/18 02:20 Plt Count 312 K/uL (152-406) D 05/01/18 02:20 Sodium 142 mmol/L (136-145) 05/03/18 05:25 Potassium 4.2 mmol/L (3.5-5.1) 05/03/18 05:25 BUN 18 mg/dL (7-18) 05/03/18 05:25 Creatinine 6.20 mg/dL (0.55-1.3) H* D 05/03/18 05:25 Glucose 77 mg/dL (74-106) 05/03/18 05:25 Phosphorus 3.8 mg/dL (2.5-4.9) 05/03/18 05:25 Home Medications: Carvedilol 6.25 mg PO BID 02/10/18 Cholecalciferol (Vitamin D3) [Vitamin D 5,000 IU Cap*] 1 tab PO DAILY 02/10/18 Furosemide [Lasix] 1 tab PO BID 02/10/18 Gabapentin [Neurontin*] 100 mg PO TID 02/10/18 Insulin Glargine,Hum.rec.anlog [Efra Solostsunday] 40 unit SQ DAILY 02/10/18 Lipase/Protease/Amylase [German Samuels 12,000 Units Capsule] 24,000 unit PO TID 02/10 Simvastatin 80 mg PO BEDTIME 02/10/18 Calcitrol [Rocaltrol*] 0.5 mcg PO DAILY #60 cap 02/13/18 Ferrous Sulfate [Ferrous Sulfate*] 325 mg PO DAILY #30 tab 02/13/18 Amlodipine [Norvasc*] 5 mg PO BID #60 tab 04/17/18 Metoclopramide HCl [Reglan] 10 mg PO DAILY #30 tablet 05/03/18 New Medications: Metoclopramide HCl [Reglan] 10 mg PO DAILY #30 tablet Patient Discharge Instructions: Please f.u with PCP and Dr Valdez in 1 week post discharge. New Medication. Reglan 10mg Daily Diet: Regular Activity: Ad oleg Followup: Kwesi Arellano MD [ACTIVE - CAN ADMIT] - 1 Week
--- NOTE | 2018-05-04 00:39 | PN ---
Date of Progress Note: 05/03/2018 Subjective: Patient feeling better. No nausea. No vomiting. Physical Examination: Vital Signs: Blood pressure 148/72, pulse of 88. Chest: Clear to auscultation. Heart: S1, S2. Regular. Abdomen: Soft, nontender. Extremities: Left below-knee amputation. Neurologic: Nonfocal. Lab: Reviewed. Medication: Reviewed. Assessment And Plan: 1. End-stage renal disease. [place] We will continue compassionate dialysis. Patient had dialysis yesterday and today. Tolerated dialysis very well. Patient cleared from the renal standpoint for discharge planning, to follow up as needed. 2. Hypertension, controlled, optimal. 3. Gastroparesis. Continue symptomatic treatment. 4. Diabetes as by primary. RODOLFO Voice ID: [id number] Report ID: [id number] MTDD
== END 2018-05-03 14:24 | disposition home or self-care (01) ==
LOC: ER 01:10 → ERHOLD 02:24 → 4TH 03:32
PROVIDERS: ADMIT Internal Medicine; ATTEND Internal Medicine
PROC: 5A1D70Z Performance of Urinary Filtration, Intermittent, Less than 6 Hours Per Day (ICD-10-PCS; principal; 2018-05-01)
PROC: 5A1D70Z Performance of Urinary Filtration, Intermittent, Less than 6 Hours Per Day (ICD-10-PCS; 2018-05-01)
DX: I12.0 Hypertensive chronic kidney disease with stage 5 chronic kidney disease or end stage renal disease (principal); E11.22 Type 2 diabetes mellitus with diabetic chronic kidney disease; N18.6 End stage renal disease; Z79.4 Long term (current) use of insulin; E11.43 Type 2 diabetes mellitus with diabetic autonomic (poly)neuropathy; K31.84 Gastroparesis; K21.9 Gastro-esophageal reflux disease without esophagitis; E78.5 Hyperlipidemia, unspecified; Z99.2 Dependence on renal dialysis; E88.09 Other disorders of plasma-protein metabolism, not elsewhere classified; Z89.519 Acquired absence of unspecified leg below knee
CPT/HCPCS: 36415; 71045; 80048; 80069; 82962; 83880; 85025; 90935; 93005; 94760; 96374; 96375; 99285; G0378; J0360; J2270; J2405; J2765; J2997; Q4081

== ENCOUNTER 2018-05-21 11:20 | Inpatient (IN) | payer SELFPAY ==
[2018-05-21] MEDS ORDERED: MORPHINE 4 MG/ML SYR ONE (11:57)
[2018-05-21] MEDS ORDERED: ONDANSETRON 4 MG/2 ML VIAL ONE (11:57)
[2018-05-21 12:23] LABS: Absolute Monocytes 0.6 K/uL (0.1-1.3); Absolute Neutrophil 6.3 K/uL (1.8-8.0); Basophils % 1.3 % (0-1.3); Eosinophils % 3.8 % (0-4.4); Hematocrit 24.7 % (36.0-45.0); Lymphocytes % 21.7 % (15.3-44.8); MCH 22.7 pg (27.0-35.0); MCV 73.1 fL (80-100); MPV 8.5 fL (7.6-11.3); RBC Red Blood Cell Count 3.37 M/uL (3.86-4.86)
[2018-05-21 12:25] LABS: Protime INR 0.88
--- NOTE | 2018-05-21 12:27 | RAD REPORT ---
EXAM DESCRIPTION: RAD - Chest Single View - 05/21/2018 12:20 pm CLINICAL HISTORY: shortness of breath Chest pain. COMPARISON: Chest Single View dated 05/01/2018; Chest Single View dated 04/16/2018; Chest Single View dated 02/12/2018; Chest Single View dated 02/10/2018Chest Single View dated 05/01/2018; Chest Single Vie w dated 04/16/2018; Chest Single View dated 02/12/2018; Chest Single View dated 02/10/2018; Chest Single View dated 12/22/2017 FINDINGS: Portable technique limits examination quality. Mild interstitial pulmonary edema. The heart is mildly to moderately enlarged. Small pleural effusion s. No displaced fractures.Right-sided venous catheter tip in the SVC. IMPRESSION: Mild CHF/ volume overload pattern.
[2018-05-21 12:56] LABS: ALT/SGPT 14 U/L (12-78); AST/SGOT 9 U/L (15-37); Albumin 2.7 g/dL (3.4-5.0); Alkaline Phosphatase 75 U/L (45-117); BUN Blood Urea Nitrogen 54 mg/dL (7-18); Bicarbonate 26 mmol/L (21-32); Bilirubin Direct < 0.1 mg/dL (0-0.2); Bilirubin Total 0.2 mg/dL (0.2-1.0); CKMB Creatine Kinase MB 2.8 ng/mL (0.3-3.6); Creatine Phosphokinase 120 U/L (26-192); Glucose Level 266 mg/dL (74-106); Lipase 338 U/L (73-393); Magnesium 2.3 mg/dL (1.8-2.4); NT PRO-BNP 128572 pg/mL (<125); Protein, Total 6.4 g/dL (6.4-8.2); Sodium Level 137 mmol/L (136-145)
[2018-05-21 12:58] LABS: Potassium 5.9 mmol/L (3.5-5.1)
--- NOTE | 2018-05-21 13:29 | ER ---
Nurse's Notes [facility] Name: Theresa Mancia Age: 47 yrs Sex: Female : 1970 Arrival Date: 05/21/2018 Time: 11:22 Bed 6 Private MD: Diagnosis: Hyperkalemia;Pulmonary edema;End stage renal disease;Dyspnea Presentation: 05/21 11:38 Presenting complaint: Patient states: SOB and vomiting since 0500 this morning, pt was iw discharged from [facility] on Wednesday for similar symptoms, pt also c/o jossue kidney pain since last night, also has diarrhea but is taking Kayexalate for her potassium. Transition of care: patient was not received from another setting of care. Onset of symptoms was May 21, 2018. Risk Assessment: Do you want to hurt yourself or someone else? Patient reports no desire to harm self or others. Initial Sepsis Screen: Does the patient meet any 2 criteria? No. Patient's initial sepsis screen is negative. Does the patient have a suspected source of infection? No. Patient's initial sepsis screen is negative. Care prior to arrival: None. 11:38 Method Of Arrival: Wheelchair iw 11:38 Acuity: MISHEL 3 iw Historical: - Allergies: 11:44 NKA; iw - PMHx: 11:44 Diabetes - IDDM; Dialysis; Gastroparesis; Hypertension; Renal Disease; iw - PSHx: 11:44 L BKA; iw - Immunization history:: Adult Immunizations unknown. - Ebola Screening: : Patient negative for fever greater than or equal to 101.5 degrees Fahrenheit, and additional compatible Ebola Virus Disease symptoms Patient denies exposure to infectious person Patient denies travel to an Ebola-affected area in the 21 days before illness onset No symptoms or risks identified at this time. - Social history:: Smoking status: Patient/guardian denies using tobacco. Screenin:25 Abuse screen: Denies threats or abuse. Denies injuries from another. Nutritional jl7 screening: No deficits noted. Tuberculosis screening: No symptoms or risk factors identified. Fall Risk No fall in past 12 months (0 pts). No secondary diagnosis (0 pts). IV access (20 points). Ambulatory Aid- None/Bed Rest/Nurse Assist (0 pts). Gait- Impaired (20 pts.). Mental Status- Oriented to own ability (0 pts). Total Dalton Fall Scale indicates Low Risk Score (25-44 pts). Fall prevention measures have been instituted. Side Rails Up X 2 Placed close to Nursing Station Frequent Obs/Assesments occuring Family Present and informed to notify staff if they need to leave bedside As available Patient and Family Educated on Fall Prevention Program and strategies. Assessment: 12:00 General: Appears uncomfortable, Behavior is cooperative. Pain: Complains of pain in jl7 back. Neuro: Level of Consciousness is awake, alert, obeys commands, Oriented to person, place, time, situation. Cardiovascular: Heart tones S1 S2 present. Respiratory: Airway is patent Respiratory effort is even, unlabored, Respiratory pattern is regular, symmetrical, Breath sounds are clear. GI: Abdomen is round non-distended, Bowel sounds present X 4 quads. Reports diarrhea, nausea, vomiting. : No signs and/or symptoms were reported regarding the genitourinary system. EENT: No signs and/or symptoms were reported regarding the EENT system. Derm: Skin is diaphoretic, Skin is pale, Skin temperature is warm. Musculoskeletal: No signs and/or symptoms reported regarding the musculoskeletal system. 12:10 Reassessment: Pt's O2 sats decreased to 81% after Morphine administration, placed on 2 jl7 lpm NC, instructed pt to take deep breaths. O2 sats increased to 100%. 13:05 Reassessment: pt laying in bed with eyes closed, respirations even and unlabored, no jl7 signs of distress noted at this time. VSS. 13:55 Reassessment: Transport pt to restroom via wheelchair. jl7 14:25 Reassessment: Transported pt back from bathroom via wheelchair. Pt began vomiting. jl7 Reglan administered. Pt reports decreased nausea at this time. Pt requests for a blanket, blanket provided. 15:19 Reassessment: Pt laying in bed with eyes closed, respirations even and unlabored, no jl7 signs of distress noted at this time. Vital Signs: 11:45 BP 168 / 121; Pulse 106; Resp 16 S; Temp 98.2; Pulse Ox 96% on R/A; Weight 83.46 kg; iw Height 5 ft. (152.40 cm); Pain 10/10; 12:25 BP 182 / 75; Pulse 95; Resp 19 S; Pulse Ox 96% on 2 lpm NC; jl7 13:08 BP 183 / 81; Pulse 94; Resp 19; Pulse Ox 100% on 2 lpm NC; Pain 0/10; jl7 13:45 BP 183 / 89; Pulse 105; Resp 16; Pulse Ox 93% on 2 lpm NC; jl7 14:40 BP 198 / 89; Pulse 101; Resp 16; Pulse Ox 97% on 2 lpm NC; jl7 14:52 BP 163 / 85; Pulse 88; Resp 15 S; Pulse Ox 100% on 2 lpm NC; jl7 15:18 BP 159 / 96; Pulse 90; Resp 18 S; Pulse Ox 100% on 2 lpm NC; jl7 11:45 Body Mass Index 35.93 (83.46 kg, 152.40 cm) iw ED Course: 11:22 Patient arrived in ED. rg4 11:30 Nico Tracy PA is PHCP. jmm 11:30 Ángel Nolasco MD is Attending Physician. jmm 11:42 Triage completed. iw 11:45 Arm band placed on. iw 11:47 Barbara Gutierrez, RN is Primary Nurse. jl7 12:00 Patient has correct armband on for positive identification. Placed in gown. Bed in low jl7 position. Call light in reach. Side rails up X 1. conveyor monitor on. Pulse ox on. NIBP on. 12:08 Initial lab(s) drawn, by ks, sent to lab. Inserted saline lock: 22 gauge in left jl7 antecubital area, using aseptic technique. Blood collected. 12:16 X-ray completed. Portable x-ray completed in exam room. Patient tolerated procedure ag1 well. 12:20 XRAY Chest (1 view) In Process Unspecified. EDMS 12:25 EKG done, by ED staff, reviewed by Nico SANTOS. jl7 12:26 Notified Nurse Practitioner and/or Physician Cheesemaker of a critical lab result(s), Hgb aj1 7.6. 12:28 Oxygen administration via nasal cannula \T\ 2L/min Response to oxygen therapy: symptoms jl7 improved. 13:24 Ángel Nolasco MD is Hospitalizing Provider. jmm 13:24 Roberto Larios MD is Hospitalizing Provider. jm 15:59 No provider procedures requiring assistance completed. Patient admitted, IV remains in jl7 place. intact, No redness/swelling at site. Administered Medications: 12:07 Drug: Zofran 4 mg Route: IVP; Site: left antecubital; jl7 12:30 Follow up: Response: No adverse reaction; Nausea is decreased jl7 12:09 Drug: morphine 4 mg Route: IVP; Site: left antecubital; jl7 12:25 Follow up: Response: No adverse reaction; Pain is decreased jl7 14:28 Drug: Reglan 10 mg Route: IVP; Site: left antecubital; jl7 15:00 Follow up: Response: No adverse reaction; Nausea is decreased jl7 14:30 Drug: Nitro-Dur Patch 0.4 mg/hr 1 patches Route: Transdermal; Site: anterior chest wall;jl7 15:00 Follow up: Response: No adverse reaction jl7 14:32 Drug: Lasix 80 mg Route: IVP; Site: left antecubital; jl7 15:00 Follow up: Response: No adverse reaction jl7 Outcome: 13:28 Decision to Hospitalize by Provider. princess 15:57 Admitted to Tele accompanied by tech, via stretcher, room 215, with chart, Report jl7 called to ANSELMO Hair 15:57 Condition: stable 15:57 Discharge instructions given to patient, Instructed on the need for admit, Demonstrated understanding of instructions. 16:00 Patient left the ED. jl7 Signatures: Dispatcher [employer] EDMS Kristy Echols RN RN aj1 Nico Tracy PA PA jmm Williams, Irene, RN RN iw Gallaway, Ashley ag1 Marie Peoples rg4 Barbara Gutierrez RN RN jl7 Corrections: (The following items were deleted from the chart) 11:56 11:38 Presenting complaint: Patient states: SOB and vomiting since 0500 this morning, iw pt was discharged from [facility] on Wednesday for similar symptoms, pt also c/o jossue kidney pain since last night iw 13:08 12:25 BP 182 / 75; Pulse 95bpm; Resp 19bpm; Spontaneous; Pulse Ox 96% RA; jl7 jl7
--- NOTE | 2018-05-21 13:29 | EDPHYS ---
Physician Documentation [facility] Name: Theresa Mancia Age: 47 yrs Sex: Female : 1970 Arrival Date: 05/21/2018 Time: 11:22 Bed 6 Private MD: Ángel Scott HPI: 05/21 11:44 This 47 yrs old Female presents to ER via Wheelchair with complaints of jmm Vomiting, Shortness Of Breath. 11:44 The patient has shortness of breath at rest. Onset: The symptoms/episode began/occurred jmm gradually, 3 day(s) ago. Duration: The symptoms are continuous. According to the family the patient developed vomiting at approx 5 this morning. Patient complains of shortness of breath and lower back pain. . Historical: - Allergies: 11:44 NKA; iw - PMHx: 11:44 Diabetes - IDDM; Dialysis; Gastroparesis; Hypertension; Renal Disease; iw - PSHx: 11:44 L BKA; iw - Immunization history:: Adult Immunizations unknown. - Ebola Screening: : Patient negative for fever greater than or equal to 101.5 degrees Fahrenheit, and additional compatible Ebola Virus Disease symptoms Patient denies exposure to infectious person Patient denies travel to an Ebola-affected area in the 21 days before illness onset No symptoms or risks identified at this time. - Social history:: Smoking status: Patient/guardian denies using tobacco. ROS: 16:00 Cardiovascular: Negative for chest pain, palpitations, and edema. jmm 16:00 Constitutional: Positive for body aches, malaise. 16:00 Respiratory: Positive for shortness of breath. 16:00 Back: Positive for pain at rest, flank pain. 16:00 MS/extremity: Positive for swelling. 16:00 Skin: Negative for erythema, rash. 16:00 Neuro: Negative for weakness. 16:00 All other systems are negative. Exam: 16:00 Head/Face: atraumatic. jmm 16:00 Neck: Trachea midline, Supple 16:00 Constitutional: The patient appears alert, awake, anxious, uncomfortable. 16:00 Cardiovascular: Rate: normal, Rhythm: regular, Pulses: no pulse deficits are appreciated. 16:00 Respiratory: the patient does not display signs of respiratory distress, Respirations: normal, Breath sounds: are clear throughout, no acute changes. 16:00 Abdomen/GI: Inspection: abdomen appears normal, Bowel sounds: normal, Palpation: abdomen is soft and non-tender. 16:00 Back: ROM is normal, CVA tenderness, that is mild, is noted bilaterally. 16:00 Musculoskeletal/extremity: edema noted to the right lower leg, full dorsalis pulse, NVI, compartments are soft. 16:00 Skin: Appearance: Color: normal in color. 16:00 Neuro: Orientation: is normal, Mentation: is normal, Memory: is normal. Vital Signs: 11:45 BP 168 / 121; Pulse 106; Resp 16 S; Temp 98.2; Pulse Ox 96% on R/A; Weight 83.46 kg; iw Height 5 ft. (152.40 cm); Pain 10/10; 12:25 BP 182 / 75; Pulse 95; Resp 19 S; Pulse Ox 96% on 2 lpm NC; jl7 13:08 BP 183 / 81; Pulse 94; Resp 19; Pulse Ox 100% on 2 lpm NC; Pain 0/10; jl7 13:45 BP 183 / 89; Pulse 105; Resp 16; Pulse Ox 93% on 2 lpm NC; jl7 14:40 BP 198 / 89; Pulse 101; Resp 16; Pulse Ox 97% on 2 lpm NC; jl7 14:52 BP 163 / 85; Pulse 88; Resp 15 S; Pulse Ox 100% on 2 lpm NC; jl7 15:18 BP 159 / 96; Pulse 90; Resp 18 S; Pulse Ox 100% on 2 lpm NC; jl7 11:45 Body Mass Index 35.93 (83.46 kg, 152.40 cm) iw MDM: 11:33 Patient medically screened. [facility] 13:21 Data reviewed: vital signs, nurses notes, lab test result(s). [facility] 13:30 ED course: I discussed the patient with Dr. Larios and Dr. Kim whom accepted [facility] admisison and will consult. . 05/21 11:31 Order name: Basic Metabolic Panel [facility] 05/21 11:31 Order name: CBC with Diff; Complete Time: 12:29 [facility] 05/21 11:31 Order name: Ckmb [facility] 05/21 11:31 Order name: CPK [facility] 05/21 11:31 Order name: LFT's; Complete Time: 12:59 [facility] 05/21 11:31 Order name: Magnesium; Complete Time: 12:59 [facility] 05/21 11:31 Order name: NT PRO-BNP; Complete Time: 12:59 [facility] 05/21 11:31 Order name: PT-INR; Complete Time: 12:29 [facility] 05/21 11:31 Order name: Ptt, Activated; Complete Time: 12:29 [facility] 05/21 11:31 Order name: Troponin (emerg Dept Use Only); Complete Time: 12:45 [facility] 05/21 11:31 Order name: Lipase; Complete Time: 12:59 [facility] 05/21 11:32 Order name: Basic Metabolic Panel; Complete Time: 12:59 [facility] 05/21 11:32 Order name: CKMB Creatine Kinase MB; Complete Time: 12:59 [facility] 05/21 11:32 Order name: Creatine Phosphokinase; Complete Time: 12:59 [facility] 05/21 11:31 Order name: XRAY Chest (1 view); Complete Time: 12:29 [facility] 05/21 15:34 Order name: CKMB Creatine Kinase MB [facility] 05/21 15:34 Order name: CKMB Creatine Kinase MB [facility] 05/21 15:34 Order name: CKMB Creatine Kinase MB [facility] 05/21 15:34 Order name: CKMB Creatine Kinase MB [facility] 05/21 15:34 Order name: Comprehensive Metabolic Panel [facility] 05/21 15:34 Order name: Comprehensive Metabolic Panel [facility] 05/21 15:35 Order name: CBC with Automated Diff [facility] 05/21 15:35 Order name: CBC with Automated Diff [facility] 05/21 15:35 Order name: Creatine Phosphokinase [facility] 05/21 15:35 Order name: Creatine Phosphokinase [facility] 05/21 15:35 Order name: Creatine Phosphokinase [facility] 05/21 15:35 Order name: Creatine Phosphokinase [facility] 05/21 15:35 Order name: Troponin I [facility] 05/21 15:35 Order name: Troponin I [facility] 05/21 15:35 Order name: Troponin I [facility] 05/21 11:31 Order name: EKG; Complete Time: 11:32 [facility] 05/21 11:31 Order name: Cardiac monitoring; Complete Time: 12:31 [facility] 05/21 11:31 Order name: EKG - Nurse/Tech; Complete Time: 12:31 [facility] 05/21 11:31 Order name: IV Saline Lock; Complete Time: 12:33 [facility] 05/21 11:31 Order name: Labs collected and sent; Complete Time: 12:33 [facility] 05/21 11:31 Order name: O2 Per Protocol; Complete Time: 12:31 [facility] 05/21 11:31 Order name: O2 Sat Monitoring; Complete Time: 12:31 [facility] 05/21 15:35 Order name: CONS Pharmacy Consult [facility] 05/21 15:35 Order name: Consistent Carb (ADA) 1800 Sen [facility] Administered Medications: 12:07 Drug: Zofran 4 mg Route: IVP; Site: left antecubital; jl7 12:30 Follow up: Response: No adverse reaction; Nausea is decreased jl7 12:09 Drug: morphine 4 mg Route: IVP; Site: left antecubital; jl7 12:25 Follow up: Response: No adverse reaction; Pain is decreased jl7 14:28 Drug: Reglan 10 mg Route: IVP; Site: left antecubital; jl7 15:00 Follow up: Response: No adverse reaction; Nausea is decreased jl7 14:30 Drug: Nitro-Dur Patch 0.4 mg/hr 1 patches Route: Transdermal; Site: anterior chest wall;jl7 15:00 Follow up: Response: No adverse reaction jl7 14:32 Drug: Lasix 80 mg Route: IVP; Site: left antecubital; jl7 15:00 Follow up: Response: No adverse reaction jl7 Disposition: 05/21/18 13:28 Hospitalization ordered by Roberto Larios for Inpatient Admission. Preliminary diagnosis are Hyperkalemia, Pulmonary edema, End stage renal disease, Dyspnea. - Bed requested for Telemetry/MedSurg (Inpatient). - Status is Inpatient Admission. jl7 - Condition is Stable. - Problem is an acute exacerbation. - Symptoms are unchanged. UTI on Admission? No Addendum: 05/23/2018 14:00 Co-signature as Attending Physician, Ángel Nolasco MD I agree with the assessment and c weir plan of care. Signatures: Dispatcher [employer] [facility] Marilee Gurrola RN RN dw Anderson, Corey, MD MD cha Mickail, Joel, PA PA m Flash, Malou, RN RN iw Gutierrez, Jahala, RN RN jl7 Corrections: (The following items were deleted from the chart) 05/21 15:32 13:28 Hospitalization Ordered by Roberto Larios MD for Inpatient Admission. dw Preliminary diagnosis is Hyperkalemia; Pulmonary edema; End stage renal disease; Dyspnea. Bed requested for Telemetry/MedSurg (Inpatient). Status is Inpatient Admission. Condition is Stable. Problem is an acute exacerbation. Symptoms are unchanged. UTI on Admission? No. jmm 16:00 15:32 05/21/2018 13:28 Hospitalization Ordered by Roberto Larios MD for Inpatient jl7 Admission. Preliminary diagnosis is Hyperkalemia; Pulmonary edema; End stage renal disease; Dyspnea. Bed requested for Telemetry/MedSurg (Inpatient). Status is Inpatient Admission. Condition is Stable. Problem is an acute exacerbation. Symptoms are unchanged. UTI on Admission? No. dw
[2018-05-21] MEDS ORDERED: METOCLOPRAMIDE 10 MG/2mL INJ ONE (13:55)
[2018-05-21] MEDS ORDERED: FUROSEMIDE 100 MG/10 ML VIAL IV ONE (13:55)
[2018-05-21] MEDS ORDERED: NITROGLYCERIN 1 GM PKT TD ONE (13:55)
[2018-05-21] MEDS ORDERED: ALBUTEROL 2.5 MG/3 ML NEB SOL NEB PRN (15:32)
[2018-05-21] MEDS ORDERED: ACETAMINOPHEN 500 MG TAB PO PRN (15:32)
[2018-05-21] MEDS ORDERED: GLUCAGON 1 MG/VIAL IM PRN (15:36)
[2018-05-21] MEDS ORDERED: D50W 25 GM/50 ML SYRINGE IV PRN (15:36)
[2018-05-21] MEDS ORDERED: SOD POLYSTYREN SUL 15 GM/60 ML UCUP PO ONE (16:07)
[2018-05-21] MEDS: ONDANSETRON 4 MG/2 ML VIAL IV PRN (16:55)
[2018-05-21] MEDS: HEPARIN 5000 UNIT/ML 1 ML VIAL SQ SCH (16:55)
[2018-05-21] MEDS ORDERED: INSULIN GLARGINE 100 UNITS/ML SQ SCH (17:00)
[2018-05-21] MEDS: INSULIN -REGULAR HUMAN 50 UNIT/0.5 ML ML SQ SCH ×2 (17:06→22:44)
[2018-05-21 17:09] LABS: CKMB Creatine Kinase MB 2.7 ng/mL (0.3-3.6)
[2018-05-21] MEDS ORDERED: MANNITOL 25% 12.5 GM/50 ML VIAL IV PRN (18:46)
[2018-05-21] MEDS ORDERED: NA CHLORIDE 0.9% 1,000 ML IV PRN (18:46)
[2018-05-21] MEDS: EPOETIN ALFA 10,000 UNIT/ML VIAL IV SCH (18:59)
[2018-05-21] MEDS ORDERED: ALBUMIN HUMAN 25% 50 ML IV SCH (19:00)
--- NOTE | 2018-05-21 19:15 | HP ---
Date of Admission: 05/21/2018 Reason For Admission: Progressive shortness of breath. Need hemodialysis. History Of Present Illness: This is a 47-year-old female with history of multiple medical problems i ncluding high blood pressure, diabetes, diabetic gastroparesis, end-stage renal disease, on hemodialy sis. Receiving hemodialysis in different ER due to the fact that she is not insured. The patient wi ll likely receive her hemodialysis on May 25 and she presents today to the emergency brittni with progressive shortness of breath that started 2 days ago. She also vomited once this morning. She started to have lower back pain. In the emergency room she was evaluated. Her lab was consiste nt with renal failure with a creatinine of 7.7, BUN of 54, potassium 5.9, glucose 266, BNP was at 128 ,000, hemoglobin 7.6. She was admitted for hemodialysis. Currently, she is lying in bed. She is comfortable. She has no chest pain. Review of Systems: Otherwise as below. Past Medical History: Uncontrolled diabetes, hypertension, hyperlipidemia, end-stage renal disease, acid reflux, chronic pancreatitis, gastroparesis, left above knee amputation, anemia of chronic disea se, diabetic neuropathy. Past Surgical History: Known for cholecystectomy, amputation of left pinky toe by Dr. Barney, left be low-knee amputation in October 2015. Social History: The patient is . She has 2 kids. She does not drink or smoke or use any trang gs. Family History: Significant for father has coronary artery disease, mother has lung disease. Home Medication: Coreg 6.25 twice a day, vitamin D 1 tablet daily, Lasix orally twice a day, Neuront in 100 mg 3 times a day, insulin glargine 14 unit subcutaneously daily, Creon 24,000 units 3 times a day, Protonix 20 mg daily, Zocor 80 mg daily, calcitriol 0.5 mcg daily, ferrous sulfate 325 mg daily, Renvela 1600 mg t.i.d., amlodipine 5 mg twice a day. Review of Systems: Denies any fever, chills, night sweats, dizziness, lightheaded, headache, blurred vision. There is n o cough, sputum. She has shortness of breath. No chest pain, palpitations, PND, orthopnea. She has dyspnea on exertion. There is no nausea, vomiting now but she had nausea and vomiting earlier. Abd ominal pain, change in bowel movement, diarrhea, constipation, dysuria, frequency, urgency, hematuria . There is no history of depression, anxiety, seizure or stroke. Physical Examination: Vital Signs: Currently, blood pressure is 168/120, upon repeat 182/75, pulse 95, respiratory rate 19 , pulse 96% on 2 L nasal cannula. General: She is alert, oriented x3. Does not look in any distress. HEENT: Atraumatic, normocephalic. PERRLA. Oral mucosa is moist. Neck: Supple. No JVD. Chest: Clear to auscultation. Good air entry with basilar crackles. Heart: Regular rate and rhythm. S1, S2 normal. No gallop, rub or murmur. Abdomen: Soft, nontender, with no hepatosplenomegaly. Bowel sounds positive. Extremities: No clubbing, cyanosis, or edema. No calf tenderness. Neurologic: Grossly intact. Cranial exam 2 through 12 intact. Normal sensation. Normal reflexes. Normal muscle strength. Laboratory Data: Labs today showed CBC was normal except for hemoglobin of 7.6, platelet of 383, PT/ INR are within normal. Chemistry showed potassium 5.9, BUN of 54, creatinine of 7.7. Glucose 266. AST of 9. Troponin 0.06. Assessment And Plan: 1.End-stage renal disease, on hemodialysis intermittently through the emergency room. As patient is not insured, we will admit, will consult Nephrology to proceed with dialysis. 2.Gastroparesis, poorly controlled. We will continue on Reglan p.r.n., Zofran. We will continue th e patient on Creon. 3.Hypertension. We will resume patient's home medication with amlodipine and will add hydralazine a s needed. She will also be on Coreg twice a day. 4.Diabetes mellitus. We will check hemoglobin A1c. We will start patient on her Lantus and insulin sliding scale. 5.Deep vein thrombosis prophylaxis with heparin, given her renal insufficiency I will not use Loveno x. 6.Social service consult for issue with insurance. 7.Hyperkalemia, we will start on Kayexalate orally. BLAIRE/ISABEL Voice ID: [id number]
[2018-05-21] MEDS: IPRATROPIUM BROM 0.5MG/2.5ML NEB SCH (20:00)
[2018-05-21] MEDS ORDERED: LIPASE/PROTEASE/AMYLASE CAP PO SCH (21:00)
[2018-05-21] MEDS ORDERED: CARVEDILOL 6.25 MG TAB PO SCH (21:00)
[2018-05-21] MEDS ORDERED: FUROSEMIDE 40 MG TABLET PO SCH ×2 (21:00)
[2018-05-21] MEDS ORDERED: LISINOPRIL 10 MG TAB PO SCH (21:00)
[2018-05-21 21:01] LABS: CKMB Creatine Kinase MB 2.8 ng/mL (0.3-3.6)
--- NOTE | 2018-05-21 21:26 | CON ---
Date of Consultation: 05/21/2018 Additional Consulting Physician: Reason For Consultation: Hyperkalemia, end-stage renal disease, over volume. History Of Present Illness: This is an unfortunate 47-year-old female with significant past medical history of diabetes complicated with neuropathy, retinopathy, and nephropathy, hypertension, peripher al vascular disease, status post left below-knee amputation, end-stage renal disease, on hemodialysis , compression dialysis. The patient came to the hospital because of shortness of breath, increased s welling, found to have hyperkalemia and fluid overload, for that reason we have been consulted. We t ook the patient for urgent dialysis. The patient's last dialysis was on Wednesday. The patient refuse d to cooperate with the social service to go [facility] regular dialysis. Past Medical History: As above. Home Medications: 1.Include carvedilol 6.25. 2.Cholecalciferol. 3.Lasix. 4.Omeprazole. 5.Simvastatin. 6.Calcitriol. Allergies: NO KNOWN DRUG ALLERGIES. Past Surgical History: 1.Cholecystectomy. 2.Permacath placement. 3.Below-knee amputation on the left. 4.PICC line placement. Family History: Positive for hypertension and diabetes. Social History: Denies smoking, denies drinking, denies drug abuse. Review of Systems: Head and Neck: No red eye. No ear pain. GI: Has nausea and vomiting. : No polyuria. No dysuria. No hematuria. 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 Respiratory: Has shortness of breath. Cardiovascular: Has leg swelling. Endocrine: No polydipsia. Skin: No rash. Physical Examination: Vital Signs: When I saw the patient, blood pressure of 180/80, pulse of 97, afebrile. Chest: Crackles bilateral. Heart: S1, S2. Systolic murmur. Abdomen: Soft, nontender. Extremities: Left below-knee amputation. Right +2 edema. Neuro: Alert, oriented x3. No focal. Laboratory Data: WBC 9.3, H and H 7.6/24.7, platelets 383. Sodium 137, potassium 5.9, bicarb 26, BU N 34, creatinine 7.7, calcium 8.6, BNP 128,572, albumin 2.7. Medications: Home medication include as above. Current medications in the hospital include: 1.Carvedilol 6.25. 2.Nitroglycerin. 3.Clonidine. Assessment And Plan: 1.End-stage renal disease. Hyperkalemia. The patient can be dialyzed to low potassium bath and we will challenge the patient. 2.Hypertension, uncontrolled. I again start the patient on Lasix IV and we will continue home medic ation. We will challenge the patient. 3.Secondary hyperparathyroidism. Resume binder. 4.Anemia, resume Epogen. No need for transfusion for the time being. 5.Diabetes, as by primary. KASANDRA/ISABEL Voice ID: [id number] Report ID: [id number]
[2018-05-21] MEDS: ATORVASTATIN 40 MG TAB PO SCH (22:42)
[2018-05-21] MEDS: LISINOPRIL 20 MG TAB PO SCH (22:43)
[2018-05-21] MEDS: CARVEDILOL 12.5 MG TAB PO SCH (22:43)
[2018-05-21] MEDS: AMLODIPINE 5 MG TAB PO SCH (22:43)
[2018-05-21] MEDS: GABAPENTIN 100 MG CAP PO SCH (22:43)
[2018-05-21] MEDS: INSULIN 70/30 100 UNITS/ML SQ SCH (22:45)
[2018-05-22] MEDS: HEPARIN 5000 UNIT/ML 1 ML VIAL SQ SCH ×2 (00:35→09:44)
[2018-05-22] MEDS: IPRATROPIUM BROM 0.5MG/2.5ML NEB SCH ×4 (01:52→19:32)
[2018-05-22] MEDS: INSULIN -REGULAR HUMAN 50 UNIT/0.5 ML ML SQ SCH ×4 (07:30→22:14)
[2018-05-22 08:01] LABS: Absolute Lymphocytes (CBC) 2.2 K/uL (0.7-4.9); Absolute Monocytes 0.4 K/uL (0.1-1.3); Basophils % 1.9 % (0-1.3); Eosinophils % 2.2 % (0-4.4); Hematocrit 20.9 % (36.0-45.0); Lymphocytes % 37.8 % (15.3-44.8); MCH 22.1 pg (27.0-35.0); MPV 8.2 fL (7.6-11.3); Monocytes % 7.4 % (3.3-12.3); RBC Red Blood Cell Count 2.87 M/uL (3.86-4.86)
[2018-05-22 08:13] LABS: CKMB Creatine Kinase MB 1.6 ng/mL (0.3-3.6)
[2018-05-22 08:16] LABS: Albumin 2.3 g/dL (3.4-5.0); Bilirubin Total 0.2 mg/dL (0.2-1.0); Potassium 4.3 mmol/L (3.5-5.1); Protein, Total 5.6 g/dL (6.4-8.2)
[2018-05-22] MEDS ORDERED: CALCITROL 0.25 MCG CAP PO SCH ×2 (09:00)
[2018-05-22] MEDS ORDERED: FUROSEMIDE 40 MG/4 ML VIAL IV SCH (09:00)
[2018-05-22] MEDS: LISINOPRIL 20 MG TAB PO SCH ×2 (09:44→20:29)
[2018-05-22] MEDS: SEVELAMER CARBONATE 800 MG TABLET PO SCH ×3 (09:44→16:41)
[2018-05-22] MEDS: GABAPENTIN 100 MG CAP PO SCH ×3 (09:45→20:29)
[2018-05-22] MEDS: CARVEDILOL 12.5 MG TAB PO SCH ×2 (09:45→20:30)
[2018-05-22] MEDS: AMLODIPINE 5 MG TAB PO SCH ×2 (09:45→20:29)
[2018-05-22] MEDS: FERROUS SULFATE 325 MG TAB PO SCH (09:45)
[2018-05-22] MEDS: METOCLOPRAMIDE 5 MG TAB PO SCH (09:45)
[2018-05-22] MEDS: VITAMIN D 5,000 UNIT CAP PO SCH (09:45)
[2018-05-22] MEDS: METOLAZONE 5 MG TABLET PO SCH (09:49)
[2018-05-22] MEDS: NITROGLYCERIN 0.2 MG/HR (5 MG) PATCH TD SCH (09:51)
[2018-05-22] MEDS: FUROSEMIDE 40 MG/4 ML VIAL IV SCH ×2 (09:52→16:40)
[2018-05-22] MEDS: INSULIN 70/30 100 UNITS/ML SQ SCH ×2 (10:32→21:00)
--- NOTE | 2018-05-22 10:39 | EKG ---
Test Date: 2018-05-21 Test Time: 12:23:46 Winding Operator: FATOUMATA MEASUREMENT RESULTS: Intervals: Rate: 93 WY: 120 QRSD: 126 QT: 384 QTc: 477 Willard: P: 31 WY: 120 QRS: 117 T: -27 INTERPRETIVE STATEMENTS: Normal sinus rhythm Right bundle branch block Non specific ST and T abnormality Abnormal ECG Compared to ECG 05/01/2018 02:42:20 Sinus tachycardia no longer present Electronically Signed On 05-22-18 10:39:03 CDT by Joshua Allen
[2018-05-22] MEDS ORDERED: EPOETIN ALFA 20,000 UNIT/1 ML VIAL SQ ONE (12:00)
[2018-05-22] MEDS: ONDANSETRON 4 MG/2 ML VIAL IV PRN (12:18)
--- NOTE | 2018-05-22 13:52 | PN ---
Subjective.: Currently, the patient is sitting in bed. She looks comfortable. She is using oxygen. Slightly short of breath. There is no chest pain. No abdominal pain. No nausea or vomiting. She had dialysis yesterday, but she continued to have lower extremity edema. Review of Systems: Otherwise, negative. Objective: Vital Signs: Blood pressure 170/74, respiratory rate 16, pulse 84, temperature 97.4. General: The patient is alert and oriented x3. Does not look in any distress. HEENT: Atraumatic, normocephalic. PERRLA. Oral mucosa is moist. Neck: Supple. No JVD. No bruits. Chest: Bibasilar crackles. No expiratory wheezing. Heart: Regular rate and rhythm. S1, S2 normal. No gallop. She does have systolic murmur. Abdomen: Soft, obese. Positive bowel sounds. Extremity: +2 edema on the right. Left below-knee amputation. Neurologic: Grossly intact. Laboratory Data: Labs today CBC with hemoglobin down to 6.3, white blood cell 5.9, platelets of 307. Chemistry within normal, except for creatinine of 5, BUN of 28, calcium of 8.3, albumin of 2.3. Assessment And Plan: 1.End-stage renal disease, on hemodialysis. Intermittently due to lack of the insurance, the patilakshmi briones had hemodialysis last night at 3500 cc removed of fluid. Secondary to her lower extremity edema an d some shortness of breath which in part could be secondary to her severe anemia, we will keep her ov ernight to do another dialysis before with her discharge tomorrow morning. Otherwise, she will proba diana . 2.History of gastroparesis. Continue the patient on Reglan and Zofran as needed. She is also on Cr rupal before meals. 3.Hypertension, not well controlled. Resume her home medications with amlodipine and Coreg. She is on hydralazine as needed as well. 4.Severe anemia. The patient is Jehovah Witness. Apparently anemia of chronic disease. The patien t received Procrit injection yesterday and will leave it up to Nephrology to see if the patient can b enefit from additional dose before discharge as the patient did not follow up with them as outpatient . 5.Diabetes mellitus. Hemoglobin A1c ordered. It was 6.8. Continue the patient on insulin sliding scale twice a day. 6.Deep venous thrombosis prophylaxis with heparin. 7.Discharge planning after next dialysis hopefully. 8.Hyperkalemia, resolved post dialysis. BLAIRE/ISABEL Voice ID: [id number] Report ID: [id number]
--- NOTE | 2018-05-22 13:52 | PN ---
Date of Progress Note: 05/22/2018 Subjective: The patient had dialysis yesterday. We managed to remove 3 L. Shortness of breath has been subsided. Physical Examination: Vital Signs: Blood pressure 170/74, pulse of 84. The patient had good urine output. Chest: Faint crackles on the base. Heart: S1, S2. Regular. Abdomen: Soft, nontender. Extremities: Above-knee amputation. Laboratory Data: H and H 6.3/20.9, WBC 5.9. Sodium 143, potassium 4.3, bicarb 32, BUN 28, creatinin e 5.1, calcium 8.1. Medications: Current medications the patient on its include; 1.Albuterol. 2.Epogen. 3.Heparin. 4.Norvasc 5 b.i.d. 5.Atorvastatin. 6.Carvedilol 12.5. 7.Nitroglycerin patch. 8.Gabapentin 100 t.i.d. 9.Metolazone. 10.Lasix 80 b.i.d. Assessment And Plan: 1.End-stage renal disease with hyperkalemia, over volume, currently normal volume. Continue diuresi s. 2.Hyperkalemia, resolved. 3.Anemia. The patient has Presybeterian. Refused any blood transfusion. I am going to send fo r iron study, give the patient a single dose of Epogen subacute. I discussed with the patient risks, benefits, alternatives, need for transfusion. The patient still refused because of jainism. We wi ll continue to monitor. The patient understand risks, benefits, and alternatives. 4.Hypertension, uncontrolled. I am going to go ahead and increase her carvedilol to 25 mg and we wi ll monitor the patient. 5.Secondary hyperparathyroidism. Continue Renvela. 6.Diabetes as by primary. The patient cleared from the renal standpoint for discharge planning. We will follow up as outpatient. KASANDRA/ISABEL Voice ID: [id number] Report ID: [id number]
[2018-05-22] MEDS: ATORVASTATIN 40 MG TAB PO SCH (20:29)
[2018-05-23] MEDS: IPRATROPIUM BROM 0.5MG/2.5ML NEB SCH ×3 (01:17→13:48)
[2018-05-23 05:04] LABS: RBC Red Blood Cell Count 2.37 M/uL (3.86-4.86)
[2018-05-23 05:41] LABS: Albumin 1.9 g/dL (3.4-5.0); Ferritin 10.6 ng/mL (8-388); Folic Acid, (Folate) 6.4 ng/mL (3.1-17.5); Phosphorus 4.1 mg/dL (2.5-4.9)
[2018-05-23 06:20] VITALS: BMI 36.6
[2018-05-23] MEDS: INSULIN -REGULAR HUMAN 50 UNIT/0.5 ML ML SQ SCH ×2 (07:30→11:30)
[2018-05-23] MEDS: EPOETIN ALFA 10,000 UNIT/ML VIAL IV SCH (07:34)
[2018-05-23] MEDS: INSULIN 70/30 100 UNITS/ML SQ SCH (09:00)
[2018-05-23] MEDS: NITROGLYCERIN 0.2 MG/HR (5 MG) PATCH TD SCH (09:00)
[2018-05-23] MEDS: METOLAZONE 5 MG TABLET PO SCH (10:17)
[2018-05-23] MEDS: METOCLOPRAMIDE 5 MG TAB PO SCH (10:17)
[2018-05-23] MEDS: FERROUS SULFATE 325 MG TAB PO SCH (10:18)
[2018-05-23] MEDS: CARVEDILOL 12.5 MG TAB PO SCH (10:18)
[2018-05-23] MEDS: VITAMIN D 5,000 UNIT CAP PO SCH (10:18)
[2018-05-23] MEDS: SEVELAMER CARBONATE 800 MG TABLET PO SCH ×2 (10:18→11:47)
[2018-05-23] MEDS: GABAPENTIN 100 MG CAP PO SCH ×2 (10:19→14:46)
[2018-05-23] MEDS: FUROSEMIDE 40 MG/4 ML VIAL IV SCH (10:20)
[2018-05-23] MEDS: LISINOPRIL 20 MG TAB PO SCH (10:25)
[2018-05-23] MEDS: AMLODIPINE 5 MG TAB PO SCH (10:25)
[2018-05-23 10:54] VITALS: TEMP 97
[2018-05-23] MEDS: ONDANSETRON 4 MG/2 ML VIAL IV PRN (11:47)
--- NOTE | 2018-05-23 13:55 | P.DS ---
Admission Date: 05/21/18 Discharge Date: 05/23/18 Primary Care Provider: none; Nephrology=Dr. Arellano Disposition: ROUTINE DISCHARGE Discharge Condition: GOOD Reason for Admission: Patient needing dialysis. Consultations: Nephrology-Dr. Arellano - Problems (1) Diabetes mellitus Onset Date: 05/23/18 Current Visit: Yes Status: Chronic Qualifiers: Diabetes mellitus type: type 2 Diabetes mellitus fpc insulin use: without fpc use Diabetes mellitus complication status: with kidney complications Diabetes mellitus complication detail: with chronic kidney disease Chronic kidney disease stage: on chronic dialysis Qualified Code(s) : E11.22 - Type 2 diabetes mellitus with diabetic chronic kidney disease; N18.6 - End stage renal disease; Z99.2 - Dependence on renal dialysis (2) Anemia in chronic kidney disease Onset Date: 05/02/18 Current Visit: No Status: Chronic Qualifiers: Chronic kidney disease stage: on chronic dialysis (3) Diabetic neuropathy Onset Date: 12/20/17 Current Visit: No Status: Chronic Qualifiers: Diabetes mellitus type: type 2 Diabetes mellitus complication detail: diabetic polyneuropathy Qualified Code(s): E11.42 - Type 2 diabetes mellitus with diabetic polyneuropathy (4) End stage renal disease Onset Date: 05/02/18 Current Visit: No Status: Chronic (5) GERD (gastroesophageal reflux disease) Current Visit: No Status: Chronic Qualifiers: (6) Hyperlipidemia Current Visit: No Status: Chronic Qualifiers: Hyperlipidemia type: unspecified (7) Hypertension Onset Date: 05/02/18 Current Visit: No Status: Chronic Qualifiers: Hypertension type: essential hypertension Brief History of Present Illness: 47-year-old female presented to the emergency room requiring dialysis. Patient has history of end-stage renal disease but is undocumented. Patient came in with shortness of breath. Hospital Course: During the course of her stay the patient required acute dialysis. Patient did well with dialysis. The patient has end-stage renal disease but is undocumented. She goes to ERs whenever she feels short of breath. The patient will continue with this process. The patient has multiple medical problems including diabetes, hypertension, diabetic gastroparesis, GERD, and anemia of chronic disease. This remained stable during the course of her stay. Patient will continue with her current medications. Patient will follow up with nephrology in 1 week to follow up this hospitalization and continue her progress. Vital Signs/Physical Exam: Temp Pulse Resp BP Pulse Ox 97.0 F 90 17 140/76 95 05/23/18 08:00 05/23/18 10:25 05/23/18 08:00 05/23/18 10:25 05/23/18 08:00 General: Alert, In no apparent distress, Oriented x3, Cooperative HEENT: Atraumatic Neck: Supple Respiratory: Clear to auscultation bilaterally, Normal air movement Cardiovascular: Normal pulses, Regular rate/rhythm Gastrointestinal: Normal bowel sounds, Soft and benign, Non-distended, No tenderness, No masses, No rebound, No guarding Musculoskeletal: No erythema, No tenderness, No warmth Integumentary: No tenderness/swelling, No erythema, No warmth, No cyanosis Neurological: Normal speech, Normal strength at 5/5 x4 extr, Normal tone, Normal affect Laboratory Data at Discharge: WBC 5.9 K/uL (4.3-10.9) D 05/22/18 07:38 Hgb 6.3 g/dL (12.0-15.0) L* 05/22/18 07:38 Hct 20.9 % (36.0-45.0) L* D 05/22/18 07:38 Plt Count 307 K/uL (152-406) 05/22/18 07:38 PT 10.4 SECONDS (9.5-12.5) 05/21/18 12:08 INR 0.88 05/21/18 12:08 APTT 27.3 SECONDS (24.3-36.9) 05/21/18 12:08 Sodium 141 mmol/L (136-145) 05/23/18 04:12 Potassium 4.0 mmol/L (3.5-5.1) 05/23/18 04:12 BUN 29 mg/dL (7-18) H 05/23/18 04:12 Creatinine 5.90 mg/dL (0.55-1.3) H* 05/23/18 04:12 Glucose 86 mg/dL (74-106) 05/23/18 04:12 Phosphorus 4.1 mg/dL (2.5-4.9) 05/23/18 04:12 Magnesium 2.3 mg/dL (1.8-2.4) 05/21/18 12:08 Total Bilirubin 0.2 mg/dL (0.2-1.0) 05/22/18 07:38 AST 12 U/L (15-37) L 05/22/18 07:38 ALT 12 U/L (12-78) 05/22/18 07:38 Alkaline Phosphatase 65 U/L (45-117) 05/22/18 07:38 Troponin I 0.07 ng/mL (0.0-0.045) H 05/21/18 20:22 Lipase 338 U/L (73-393) 05/21/18 12:08 Home Medications: Carvedilol 6.25 mg PO BID 02/10/18 Cholecalciferol (Vitamin D3) [Vitamin D 5,000 IU Cap*] 1 tab PO DAILY 02/10/18 Gabapentin [Neurontin*] 100 mg PO TID 02/10/18 Lipase/Protease/Amylase [Kayleneon Dr 12,000 Units Capsule] 24,000 unit PO TID 02/10 Simvastatin 80 mg PO BEDTIME 02/10/18 Calcitrol [Rocaltrol*] 0.5 mcg PO DAILY #60 cap 02/13/18 Ferrous Sulfate [Ferrous Sulfate*] 325 mg PO DAILY #30 tab 02/13/18 Amlodipine [Norvasc*] 5 mg PO BID #60 tab 04/17/18 Metoclopramide HCl [Reglan] 10 mg PO DAILY #30 tablet 05/03/18 Furosemide [Lasix] 40 mg PO BID 05/21/18 Insulin 70/30 NPH/Reg Human [Novolin 70/30*] 7 unit SQ BID 05/21/18 Lisinopril [Prinivil*] 10 mg PO BID 05/21/18 Sevelamer Carbonate [Renvela*] 1,600 mg PO TIDWM 05/21/18 metOLazone [Metolazone] 5 mg PO DAILY 05/21/18 Patient Discharge Instructions: Patient will need a follow up with her PCP in 1 week to follow up this hospitalization. Patient has end-stage renal disease. She is to follow up with nephrology in 1 week to monitor her progress. Patient has diabetes, hypertension, diabetic gastroparesis. She will continue with her previous meds. Patient will continue with a 1500 cc per day fluid restriction. Patient continue with Lasix 40 mg 1 pill twice daily and metolazone 5 mg daily. Diet: Renal Activity: Fall precautions Time spent managing pt's care (in minutes): 55
[2018-05-23 16:08] VITALS: O2SAT 95
[2018-05-23 18:02] VITALS: BP 171/71
--- NOTE | 2018-05-24 01:32 | PN ---
Date of Progress Note: 05/23/2018 Chief Complaint: End-stage renal disease. History Of Present Illness: The patient is admitted for compression and dialysis. The patient had d ialysis today with ultrafiltration. Shortness of breath is resolving. Legs edema has improved. Review of Systems: The patient denies PND or orthopnea. Physical Examination: Lungs: Clear to auscultation bilaterally. Heart: S1, S2. Abdomen: Soft and benign. Extremities: Slight edema. Laboratory Work: BUN 28, creatinine 5.1, calcium 8.1. Today, blood work showed sodium 141, potassiu m 4.0, chloride 104, CO2 32, BUN 29, creatinine 5.9, calcium 7.9, and phosphorus 4.1. Impression And Plan: 1.End-stage renal disease. Continue low-sodium diet and p.o. fluid restriction. Dialysis was done with ultrafiltration to control azotemia, provide a negative fluid balance to control fluid overload. The patient will continue metolazone and Lasix for volemia control. 2.Anemia. The patient refused blood transfusion. She is Jehovah Witness. The patient received anson thropoietin stimulating agent. 3.Hypertension, uncontrolled blood pressure medication adjusted. She will take Norvasc 5 mg twice a day. Continue diuretics with metolazone and Lasix. 4.Secondary hyperparathyroidism. Continue Renvela. DARY/ISABEL Voice ID: [id number] Report ID: [id number]
[2018-05-25 03:55] LABS: HBsAG Nonreactive (Nonreactive)
== END 2018-05-23 15:51 | disposition home or self-care (01) | DRG 640 ==
LOC: ER 11:20 → 2ND 13:28
PROVIDERS: ADMIT Internal Medicine; ATTEND Family Medicine
PROC: 5A1D70Z Performance of Urinary Filtration, Intermittent, Less than 6 Hours Per Day (ICD-10-PCS; principal; 2018-05-21)
DX: E87.70 Fluid overload, unspecified (principal); N18.6 End stage renal disease; I12.0 Hypertensive chronic kidney disease with stage 5 chronic kidney disease or end stage renal disease; N25.81 Secondary hyperparathyroidism of renal origin; E87.5 Hyperkalemia; E11.22 Type 2 diabetes mellitus with diabetic chronic kidney disease; D63.1 Anemia in chronic kidney disease; E11.42 Type 2 diabetes mellitus with diabetic polyneuropathy; Z53.1 Procedure and treatment not carried out because of patient's decision for reasons of belief and group pressure; K21.9 Gastro-esophageal reflux disease without esophagitis; E78.5 Hyperlipidemia, unspecified; E11.319 Type 2 diabetes mellitus with unspecified diabetic retinopathy without macular edema; E11.51 Type 2 diabetes mellitus with diabetic peripheral angiopathy without gangrene; E11.43 Type 2 diabetes mellitus with diabetic autonomic (poly)neuropathy; K31.84 Gastroparesis; Z99.2 Dependence on renal dialysis; Z79.4 Long term (current) use of insulin; Z89.512 Acquired absence of left leg below knee
CPT/HCPCS: 36415; 71045; 80048; 80053; 80069; 80076; 82550; 82553; 82607; 82728; 82746; 82962; 83036; 83540; 83690; 83735; 83880; 84466; 84484; 85025; 85044; 85610; 85730; 86317; 86704; 86706; 87340; 90935; 93005; 94640; 96374; 96375; 99285; J1644; J2405; J2765; Q4081